=== PATIENT | male | born 1945 | race Caucasian/White ===

== ENCOUNTER 2017-10-12 10:28 | Inpatient (IN) | payer OTHER ==
[~2017-10-12] VITALS: Ht 172.7 cm; Wt 84.5 kg
[2017-10-12] VITALS (19 sets, daily range): BP systolic 93–158; BP diastolic 34–57; PULSE 53–81; TEMP 36.4–36.8; O2SAT 96–100; BMI 29.4
[2017-10-12] MEDS ORDERED: SODIUM CHLORIDE 0.9% 250ML 250 ML IV STA (10:54)
[2017-10-12] MEDS ORDERED: PHYTONADIONE INJ 2.5 MG in SODIUM CHLORIDE 0.9% 50ML 50 ML IV STA (10:57)
--- NOTE | 2017-10-12 10:59 | EMERGENCY ROOM VISIT NOTE ---
History Report prepared by Carol: Sheron Estrella Under the Supervision of: Dr. Samira Giron M.D. First contact with patient: 10:43 Chief Complaint: OTHER COMPLAINT Stated Complaint: LOW HGB History of Present Illness The patient is a 72 year old male who presents to the Emergency Room with complaints of low hemoglobin today. The patient was sent from [facility]. He states that he had a blood transfusion and that he is on Coumadin. Per nursing staff, the patient has a mechanical heart valve. The patient denies having diarrhea and reports that he is not having bowel movements. The patient reports that he is on dialysis and that he is diabetic. He also reports having a history of an irregular heartbeat. The patient's INR was 4.12. Source of History: patient, nursing staff Onset: today Position: other (global) Quality: other (low hemoglobin ) Timing: constant Associated Symptoms: No diarrhea Review of Systems See HPI for pertinent positives & negatives. A total of 10 systems reviewed and were otherwise negative. Past Medical & Surgical Medical Problems: (1) Carotid arterial disease (2) Cirrhosis of liver (3) CKD (chronic kidney disease), stage V (4) Coronary artery disease (5) Diabetes mellitus, type 2 (6) Diastolic CHF, chronic (7) Dyslipidemia (8) Hypertension (9) Hypothyroidism (10) Systolic CHF, chronic Surgical Problems: (1) History of mitral valve replacement with mechanical valve (2) Status post carotid endarterectomy (3) Status post coronary artery bypass grafting (4) Status post mechanical aortic valve replacement Family History No pertinent family history stated. Social History Smoking Status: Former Smoker Housing Status: lives with family Occupation Status: retired Current/Historical Medications Scheduled Aspirin (Aspirin Ec), 81 MG PO DAILY Atorvastatin (Lipitor), 40 MG PO DAILY Coenzyme Q10 (Ubidecarenone) (Co Q 10), 1 CAP PO DAILY Insulin Aspart (Novolog), 1 UNITS SC ACHS Insulin Glargine (Lantus), 10 UNITS SC QAM Insulin Glargine (Lantus), 12 UNITS SC QPM Levothyroxine Sodium (Levothyroxine Sodium), 1 TAB PO DAILYBB Metoprolol Succ (Toprol Xl) (Toprol-Xl), 25 MG PO DAILY Multiple Vitamins W/ Minerals (Mens 50+ Multi Vitamin &), 1 TAB PO DAILY Nitroglycerin (Nitrostat), 0.4 MG UT PRN Warfarin Sodium (Coumadin), 5 MG PO UD Wheat Dextrin (Benefiber), 1 DOSE PO DAILY Scheduled PRN Acetaminophen Tab (Tylenol), 325 MG PO Q6 PRN for Pain Docusate Sodium (Colace), 1 CAP PO BID PRN for Constipation Allergies Coded Allergies: No Known Allergies (Unverified , 10/12/17) Physical Exam Vital Signs Date Time Temp Pulse Resp B/P (MAP) Pulse Ox O2 Delivery O2 Flow Rate FiO2 10/12/17 13:55 36.8 77 16 93/35 96 10/12/17 13:31 36.7 71 16 110/52 98 10/12/17 13:20 98 Nasal Cannula 2.0 10/12/17 13:17 69 10/12/17 13:16 36.5 81 16 100/40 98 10/12/17 11:59 71 16 120/46 98 Room Air 10/12/17 11:25 74 16 101/41 98 Room Air 10/12/17 10:45 70 10/12/17 10:39 36.8 70 25 104/45 97 Physical Exam Vital signs reviewed. General: Chronically ill-appearing male, pale, in no significant distress. Dialysis catheter to the right subclavicular region. HEENT: No scleral icterus, pale conjunctiva, PERRLA, neck supple. Atraumatic. Cardiovascular: Regular rate and rhythm, no extra sounds. Pulmonary: Clear to auscultation bilaterally, normal work of breathing. Abdomen: Soft, nontender, nondistended, positive bowel sounds. Musculoskeletal: Atraumatic, no peripheral edema. Neurologic: Patient awake alert and oriented x 3, full strength in all 4 extremities. Cranial nerves 2 through 12 grossly intact. Skin: Warm, dry, no rash Rectal: Dark brown stool formed. Guaiac positive. Medical Decision & Procedures ER Provider Diagnostic Interpretation: Radiology results as stated below per my review and radiologist interpretation: CHEST ONE VIEW PORTABLE CLINICAL HISTORY: weakness dyspnea COMPARISON STUDY: No previous studies for comparison. FINDINGS: Mild cardiomegaly. Central catheter in the superior Vena cava at the juncture with the right atrium. Probable components of lower lobe atelectasis of the left. Right lung is clear. Mild prominence of pulmonary vasculature. IMPRESSION: Moderate cardiomegaly. Atelectasis left base. Prominent pulmonary vasculature. The above report was generated using voice recognition software. It may contain grammatical, syntax or spelling errors. Electronically signed by: Rex Eckert M.D. 10/12/2017 11:19 AM Dictated Date/Time: 10/12/2017 11:18 AM HEAD WITHOUT CONTRAST (CT) CLINICAL HISTORY: 72 years-old Male with AMS, weakness. Acutely altered mental status with weakness TECHNIQUE: Multiple axial CT images of the head were obtained without contrast. A dose lowering technique was utilized adhering to the principles of ALARA. CT DOSE: 614.27 mGy.cm COMPARISON: None. FINDINGS: No acute intracranial hemorrhage, midline shift, intracranial mass, hydrocephalus, territorial ischemia or abnormal extra-axial collection. Mild to moderate atrophy. Punctate calcifications are noted within the region of the right temporal and left frontal lobes seen on images 21 and 24. Ill-defined areas of low-attenuation within the periventricular white matter suggest chronic microvascular ischemic changes. Calcifications of the tentorium are noted. Encephalomalacia is noted within the left parieto-occipital lobe. The calvarium is intact. The paranasal sinuses, mastoid air cells, and middle ear cavities are clear. IMPRESSION: 1. No acute intracranial abnormality identified. 2. Mild to moderate atrophy with mild chronic microvascular ischemic changes. 3. 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 The above report was generated using voice recognition software. It may contain grammatical, syntax or spelling errors. Electronically signed by: Enrique Carrillo M.D. 10/12/2017 11:54 AM Dictated Date/Time: 10/12/2017 11:48 AM Laboratory Results Test 10/12/17 10:58 10/12/17 11:04 Acanthocytes 1+ Peripheral Blood Smear Path Consult Total Creatine Kinase 44 U/L (39-308) Creatine Kinase MB 2.6 ng/ml (0.5-3.6) Creatine Kinase MB Ratio 5.9 (0-3.0) Bedside Troponin I 0.030 ng/ml (0-0.045) Laboratory results per my review. Medications Administered Medications (Trade) Dose Ordered Sig/Britton Route Start Time Stop Time Status Last Admin Dose Admin Sodium Chloride 250 ml @ 999 mls/hr Q16M STAT IV 10/12/17 10:54 10/12/17 11:09 DC 10/12/17 11:25 999 MLS/HR Phytonadione 2.5 mg/Sodium Chloride 50.25 ml @ 100.5 mls/ hr ONE STAT IV 10/12/17 10:57 10/12/17 11:26 DC 10/12/17 11:57 100.5 MLS/HR ECG Indication: weakness Rate (beats per minute): 68 Rhythm: atrial fibrillation Findings: no ectopy, other (repolarization abnormalities ) ED Course 1053: Past medical records reviewed. The patient was evaluated in room B10. A complete history and physical examination was performed. 1054: Ordered Sodium Chloride 250 ml @ 999 mls/hr IV. 1057: Ordered Phytonadione 2.5 mg/Sodium Chloride 50.25 ml @ 100.5 mls/hr Protocol IV. 1220: The patient consented for a transfusion. 1246: I reviewed the patient's case with Emely Scales PA-C. She will evaluate the patient for further management. 1250: Upon reevaluation, the patient is resting comfortably. I discussed laboratory and radiographic results with him. He verbalized agreement of the treatment plan. The patient will be evaluated for further management and care. Medical Decision Differential diagnosis: Etiologies such as diverticulosis, AVM, coagulopathy, colitis, inflammatory bowel disease, malignancy, Maile-Douglas tear, esophagitis, peptic ulcer disease , variceal bleed, gastritis, epistaxis, fissure, hemorrhoids, as well as others were entertained. This pt was evaluated and appeared to be critically ill, but in no distress. He is answering questions appropriately. Lab work indicates a severe anemia. BP is slightly hypotensive. Pt was type and crossed for 4 units PRBC. Lab work from [facility] was obtained and reveals this is a drop from several days ago. Pt is on dialysis. PRBC were initiated in the ED, pt consented. He is guaiac positive with formed stool. The etiology of the sudden loss is unclear, although GI seems likely. He was given IV Vit K and consultation with hospitalist service was placed. Pt was happy with this plan and agrees. Medication Reconcilliation Current Medication List: was personally reviewed by oh Blood Pressure Screening Patient's blood pressure: Low blood pressure will be monitored by the hospitalist Consults Time Called: 1200 Consulting Physician: Emely Scales PA-C Returned Call: [phone] I reviewed the patient's case with Emely Scales PA-C. She will evaluate the patient for further management. Impression Primary Impression: GI bleed Additional Impressions: Anemia Supratherapeutic INR Critical Care I have personally spent greater than 60 minutes of critical care time in the direct management of this patient. This includes bedside care, interpretation of diagnostic studies, and testing, discussion with consultants, patient, and family members, and other required patient management activities. This 60 minutes is in excess of all separately billable procedures. Scribe Attestation The scribe's documentation has been prepared under my direction and personally reviewed by me in its entirety. I confirm that the note above accurately reflects all work, treatment, procedures, and medical decision making performed by me. Departure Information Dispostion Being Evaluated By Hospitalist Referrals No Doctor, Assigned (PCP) Patient Instructions My [facility] Problem Qualifiers
--- NOTE | 2017-10-12 11:21 | DIAGNOSTIC IMAGING REPORT ---
CHEST ONE VIEW PORTABLE CLINICAL HISTORY: weakness dyspnea COMPARISON STUDY: No previous studies for comparison. FINDINGS: Mild cardiomegaly. Central catheter in the superior Vena cava at the juncture with the right atrium. Probable components of lower lobe atelectasis of the left. Right lung is clear. Mild prominence of pulmonary vasculature. IMPRESSION: Moderate cardiomegaly. Atelectasis left base. Prominent pulmonary vasculature. The above report was generated using voice recognition software. It may contain grammatical, syntax or spelling errors. Electronically signed by: Rex Eckert M.D. 10/12/2017 11:19 AM Dictated Date/Time: 10/12/2017 11:18 AM
[2017-10-12 11:29] LABS: PTT PATIENT 41.5 SECONDS (21.0-31.0)
[2017-10-12 11:32] LABS: HEMATOCRIT 16.5 % (42-52); HEMOGLOBIN 5.3 g/dL (14.0-18.0); MEAN CELL VOLUME 92.7 fL (80-100); MEAN CORPUSCULAR HEMOGLOBIN 29.8 pg (25-34); MEAN CORPUSCULAR HGB CONC 32.1 g/dl (32-36); MEAN PLATELET VOLUME 9.8 fL (7.4-10.4); NUCLEATED RED BLOOD CELL ABS 0.19 K/uL (0-0); PLATELET COUNT 174 K/uL (130-400); RED CELL DISTRIBUTION WIDTH SD 65.7 fL (36.4-46.3); WHITE BLOOD COUNT 9.45 K/uL (4.8-10.8)
[2017-10-12 11:39] LABS: ALBUMIN 1.8 gm/dl (3.4-5.0); CALCIUM 7.3 mg/dl (8.5-10.1); CREATININE 4.39 mg/dl (0.60-1.40); POTASSIUM 4.7 mmol/L (3.5-5.1)
[2017-10-12 11:40] LABS: INR 3.9 (0.9-1.1)
[2017-10-12 11:44] LABS: CKMB 2.6 ng/ml (0.5-3.6)
[2017-10-12 11:52] LABS: BASO % 1.4 %; BASO ABS # 0.13 K/uL (0-0.2); EOS % 2.5 %; EOS ABS # 0.24 K/uL (0-0.5); IG# 0.14 K/uL (0.00-0.02); LYMPH % 17.1 %; LYMPH ABS # 1.62 K/uL (1.2-3.4); MONO % 8.5 %; NEUT ABS # 6.52 K/uL (1.4-6.5)
--- NOTE | 2017-10-12 11:55 | DIAGNOSTIC IMAGING REPORT ---
HEAD WITHOUT CONTRAST (CT) CLINICAL HISTORY: 72 years-old Male with AMS, weakness. Acutely altered mental status with weakness TECHNIQUE: Multiple axial CT images of the head were obtained without contrast. A dose lowering technique was utilized adhering to the principles of ALARA. CT DOSE: 614.27 mGy.cm COMPARISON: None. FINDINGS: No acute intracranial hemorrhage, midline shift, intracranial mass, hydrocephalus, territorial ischemia or abnormal extra-axial collection. Mild to moderate atrophy. Punctate calcifications are noted within the region of the right temporal and left frontal lobes seen on images 21 and 24. Ill-defined areas of low-attenuation within the periventricular white matter suggest chronic microvascular ischemic changes. Calcifications of the tentorium are noted. Encephalomalacia is noted within the left parieto-occipital lobe. The calvarium is intact. The paranasal sinuses, mastoid air cells, and middle ear cavities are clear. IMPRESSION: 1. No acute intracranial abnormality identified. 2. Mild to moderate atrophy with mild chronic microvascular ischemic changes. 3. 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 The above report was generated using voice recognition software. It may contain grammatical, syntax or spelling errors. Electronically signed by: Enrique Carrillo M.D. 10/12/2017 11:54 AM Dictated Date/Time: 10/12/2017 11:48 AM
[2017-10-12] MEDS ORDERED: METO25TA3 PO (13:00)
[2017-10-12] MEDS ORDERED: NVLG SC (13:00)
[2017-10-12] MEDS ORDERED: COEN1CAP17 PO (13:00)
[2017-10-12] MEDS ORDERED: MULT-599 PO (13:00)
[2017-10-12] MEDS ORDERED: NTRGSL/4 UT (13:00)
[2017-10-12] MEDS ORDERED: WARF5TAB90 PO (13:00)
[2017-10-12] MEDS ORDERED: ACET325T96 PO (13:00)
[2017-10-12] MEDS ORDERED: ATOR-24 PO (13:00)
[2017-10-12] MEDS ORDERED: LEVO75TA5 PO (13:00)
[2017-10-12] MEDS ORDERED: DOCU-94 PO (13:00)
[2017-10-12] MEDS ORDERED: ASPI81TA28 PO (13:00)
[2017-10-12] MEDS ORDERED: WHEAPOW13 PO (13:02)
[2017-10-12] MEDS ORDERED: INSDGI SC ×2 (13:02)
[2017-10-12] MEDS ORDERED: DOCUSATE SODIUM 100 MG CAP PO PRN (14:00)
[2017-10-12] MEDS ORDERED: MoRPHine SULFATE 2 MG/ML CARP IV PRN (14:00)
[2017-10-12] MEDS ORDERED: ICU PROTOCOL FOR HYPERGLYCEMIA PRN (14:00)
[2017-10-12] MEDS ORDERED: NITROGLYCERIN 0.4 MG SL PER TAB CHARGE SL PRN (14:00)
[2017-10-12] MEDS ORDERED: ACETAMINOPHEN 325 MG TAB PO PRN (14:00)
[2017-10-12] MEDS ORDERED: NITROGLYCERIN 0.4 MG SL PER TAB CHARGE UT SCH (14:00)
--- NOTE | 2017-10-12 14:08 | Gastrointestinal Consultation ---
Gastrointestinal Consultation Date of Consultation: Oct 12, 2017 Attending Physician: Didi Consulting Physician: Aliza Reason for Consultation: anemia History of Present Illness Patient is a 72 year old male w/ past medical history significant for T2DM, HTN , CKD, AFIB, cirrhosis, CAD s/p CABG and mechanical valve placements who presented to the [facility] ED from [facility] for evaluation of weakness, SOB and anemia. Pt was seen and evaluated in B10 in the ER w/ Dr. Abrams. Charts reviewed. Of note, pt was admitted [facility] in September 17-September 28, transferred to [facility] and was discharged yesterday 10/11/17. Pt tells me at [facility] he continued to feel weak. He is SOB. No chest pain. He tells me has not had any black/bloody stools. Last BM was a few days ago. In the ED, VSS, WBC 9 HGB 5.3, HCT 16, PLTs 174, PT 39, INR 3.9 EGD: none Colonoscopy: none Family history of GI malignancy: none RUQ US 09/29/17: Cirrhotic morphology of the liver without gross mass identified. Moderate ascites with a site marked in the left lower quadrant for paracentesis. Right pleural effusion. Past Medical/Surgical History Medical Problems: (1) Anemia Status: Acute (2) GI bleed Status: Acute (3) Supratherapeutic INR Status: Acute Past Medical History: T2DM, dyslipidemia, hypothyroidism, afib, AVD, renal artery stenosis, CKD, CHF, anemia, mitral valve replacement, SSS, Past Surgical History: CABG w/ aortic valve replacement, ascending aorta bypass, ECHO x 5, stress ECHO , mitral valve replacement Social History Smoking Status: Never Smoker Allergies Coded Allergies: No Known Allergies (Unverified , 10/12/17) Current Medications Home Meds and Scripts Medications Dose Route/Sig Max Daily Dose Days Date Category Dose Instructions Benefiber (Wheat Dextrin) 1 Pow Pow 1 Dose PO DAILY 10/12/17 Reported Lantus (Insulin Glargine) 100 Unit/Ml Inj 12 Units SC QPM 10/12/17 Reported Lantus (Insulin Glargine) 100 Unit/Ml Inj 10 Units SC QAM 10/12/17 Reported Coumadin (Warfarin Sodium) 5 Mg Tab 5 Mg PO UD 10/12/17 Reported Tylenol (Acetaminophen) 325 Mg Tab 325 Mg PO Q6 PRN 10/12/17 Reported Nitrostat (Nitroglycerin) 0.4 Mg Tab 0.4 Mg UT PRN 10/12/17 Reported Toprol-Xl (Metoprolol Succinate) 25 Mg Tabcr 25 Mg PO DAILY 10/12/17 Reported Mens 50+ Multi Vitamin & (Multiple Vitamins W/ Minerals) 1 Tab Tab 1 Tab PO DAILY 10/12/17 Reported Levothyroxine Sodium 75 Mcg Tab 1 Tab PO DAILYBB 10/12/17 Reported Lipitor (Atorvastatin Calcium) 40 Mg Tab 40 Mg PO DAILY 10/12/17 Reported Aspirin Ec (Aspirin) 81 Mg Tab 81 Mg PO DAILY 10/12/17 Reported Colace (Docusate Sodium) 100 Mg Cap 1 Cap PO BID PRN 10/12/17 Reported Co Q 10 (Coenzyme Q10 (Ubidecarenone)) 100 Mg Cap 1 Cap PO DAILY 10/12/17 Reported TAKE WITH LIPITOR Novolog (Insulin Aspart) 100 Units/Ml Inj 1 Units SC ACHS 10/12/17 Reported Review of Systems Constitutional: + weight loss (tells me he has lost weight over the course of his last admission), + weakness, No fever, No chills Respiratory: + shortness of breath, No cough Cardiac: No chest pain, No edema Abdomen: + nausea, No pain, No vomiting, No diarrhea Endo: + fatigue Physical Exam Date Time Temp Pulse Resp B/P (MAP) Pulse Ox O2 Delivery O2 Flow Rate FiO2 10/12/17 13:55 36.8 77 16 93/35 96 10/12/17 13:31 36.7 71 16 110/52 98 10/12/17 13:20 98 Nasal Cannula 2.0 10/12/17 13:17 69 10/12/17 13:16 36.5 81 16 100/40 98 10/12/17 11:59 71 16 120/46 98 Room Air 10/12/17 11:25 74 16 101/41 98 Room Air 10/12/17 10:45 70 10/12/17 10:39 36.8 70 25 104/45 97 General Appearance: + mild distress, + pertinent finding (appears uncomfortable in bed, blood produtc) Neck: supple, trachea midline Respiratory/Chest: lungs clear, normal breath sounds Cardiovascular: regular rate, rhythm Abdomen: normal bowel sounds, non tender, soft, no organomegaly, + pertinent finding (Rectal exam w/ dark brown stool) Neurologic/Psych: alert, normal mood/affect, oriented x 3 Skin: no jaundice, warm/dry, + pallor Laboratory Results Last 24 Hours Test 10/12/17 10:58 10/12/17 11:04 White Blood Count 9.45 K/uL Red Blood Count 1.78 M/uL Hemoglobin 5.3 g/dL Hematocrit 16.5 % Mean Corpuscular Volume 92.7 fL Mean Corpuscular Hemoglobin 29.8 pg Mean Corpuscular Hemoglobin Concent 32.1 g/dl Platelet Count 174 K/uL Mean Platelet Volume 9.8 fL Neutrophils (%) (Auto) 69.0 % Lymphocytes (%) (Auto) 17.1 % Monocytes (%) (Auto) 8.5 % Eosinophils (%) (Auto) 2.5 % Basophils (%) (Auto) 1.4 % Neutrophils # (Auto) 6.52 K/uL Lymphocytes # (Auto) 1.62 K/uL Monocytes # (Auto) 0.80 K/uL Eosinophils # (Auto) 0.24 K/uL Basophils # (Auto) 0.13 K/uL RDW Standard Deviation 65.7 fL RDW Coefficient of Variation 22.0 % Immature Granulocyte % (Auto) 1.5 % Immature Granulocyte # (Auto) 0.14 K/uL Nucleated RBC Absolute Count (auto) 0.19 K/uL Nucleated Red Blood Cells % 2.1 % Polychromasia 1+ Hypochromasia PRESENT Anisocytosis PRESENT Acanthocytes 1+ Prothrombin Time 39.4 SECONDS Prothromb Time International Ratio 3.9 Activated Partial Thromboplast Time 41.5 SECONDS Partial Thromboplastin Ratio 1.6 Sodium Level 134 mmol/L Potassium Level 4.7 mmol/L Chloride Level 99 mmol/L Carbon Dioxide Level 24 mmol/L Anion Gap 11.0 mmol/L Blood Urea Nitrogen 86 mg/dl Creatinine 4.39 mg/dl Est Creatinine Clear Calc Drug Dose 16.4 ml/min Estimated GFR () 14.5 Estimated GFR (Non- 12.5 BUN/Creatinine Ratio 19.6 Random Glucose 164 mg/dl Calcium Level 7.3 mg/dl Magnesium Level 2.3 mg/dl Total Bilirubin 0.7 mg/dl Direct Bilirubin 0.2 mg/dl Aspartate Amino Transf (AST/SGOT) 42 U/L Alanine Aminotransferase (ALT/SGPT) 16 U/L Alkaline Phosphatase 117 U/L Total Creatine Kinase 44 U/L Creatine Kinase MB 2.6 ng/ml Creatine Kinase MB Ratio 5.9 Total Protein 5.0 gm/dl Albumin 1.8 gm/dl Bedside Troponin I 0.030 ng/ml Impression Patient is a 72 year old male w/ multiple comorbidities who is admitted one day following discharge from [facility] from [facility] for evaluation of weakness and anemia - pt was seen and evaluated. Has history of anemia, recently transfused x 2 w/ HGB 7.8, today HGB 5.3 w/ INR 3. No evidence of acute GI bleeding. GI asked to evaluate for anemia and to rule out GIB as the pt is requiring anticoagulation and has never had an EGD/Colonoscopy before. He continues to be nauseated x months, will rule out constipation. GI would recommend to optimize pt comorbidities as he is high risk of endoscopic evaluation and plan for EGD/Colon early next week unless there is evidence of acute GI blood loss. Plan Trend H&H Transfuse PRN Monitor output IV PPI BID KUB for stool burden Zofran PRN Hold AC Can keep NPO after midnight in event of EGD in the morning but GI is tentatively planning for EGD/Colon early next week in the OR after optimization comorbidities. Please call with any questions, concerns or acute changes. Attg addendum (late entry from yesterday): I interviewed and examined pt, reviewed chart and labs. Pt with mult medical comorbidities including AVR on anti coag, ESRD with recent initation of dialysis, s/p recent hosp in [place] for volume overload. He was noted to have anemia with dorcas Hgb of 5.5 on 10/10 , managed in [place] by transfusion. He was admitted today with anemia, weakness. On exam, he is normotensive with normal heart rate. He has marked incr WOB. He has mild abd distention and mild dullness to percussion at flanks. His rectal exam shows scant brown stool. He has no pedal edema. His hgb is 5.5, from 7.8 yesterday. His BUN is in the 80's. INR is in the 4's. Of note, CT in [place] on 09/17 showed "small prob cirrhotic liver without splenomegaly." His plt count and bili are normal, although AST appears 2 x ALT. A/P: He has had a drop in his hgb and rise in BUN, although his rectal exam shows brown stool. DDX includes PUD, gastritis, AVM, portal gastropathy. He is at high risk for anesthesia given uremia and resp insufficiency; would prefer to defer EGD and cscopy until he can be medically optimized by transfusion/ dialysis. Plan BID PPI. He has CT imaging that suggests cirrhosis, but does not have clinical/lab/ imaging stigmata of portal HTN -- portal HTN bleeding seems less likely. Will defer abx, octreotide. Agree with holding anti-coag tonight.
[2017-10-12] MEDS ORDERED: PANTOprazole INJ 80 MG in DEXTROSE 5% 100ML IV ONE (15:45)
[2017-10-12] MEDS ORDERED: INSULIN ASPART 100 UNITS/ML 3 ML PEN SC SCH (16:00)
[2017-10-12] MEDS ORDERED: ONDANSETRON INJ 2 MG/ML 2 ML VIAL IV STA (16:09)
[2017-10-12 16:17] LABS: HEMATOCRIT 20.2 % (42-52); HEMOGLOBIN 6.7 g/dL (14.0-18.0)
[2017-10-12] MEDS: PANTOprazole INJ 40 MG in DEXTROSE 5% 100ML IV SCH ×2 (16:21→20:35)
--- NOTE | 2017-10-12 16:49 | HISTORY & PHYSICAL EXAMINATION ---
DATE OF ADMISSION: 10/12/2017 CHIEF COMPLAINT: Anemia. HISTORY OF PRESENT ILLNESS: This is a 72-year-old male with past medical history significant for diabetes, hypertension, atrial fibrillation, chronic kidney disease stage IV, recently started on dialysis; history of rheumatic heart disease, status post mechanical aortic valve replacement and mechanical mitral valve replacement, on Coumadin; history of bilateral carotid disease, history of chronic diastolic congestive heart failure and systolic CHF, EF around 50%; history of CAD, history of anasarca, presents with not feeling well, dizziness and labs showed hemoglobin of 5.3. The patient was recently admitted to [facility] on September 17 with a fall and leg weakness and patient was found to have significant volume overload with anasarca and bilateral lower extremity edema and cellulitis and wound on both the back of the legs below knees and worsening chronic kidney disease stage IV . The patient was started on IV diuretics, IV vancomycin and Zosyn in [facility]. There was a concern for fibular osteomyelitis on x-ray, but CT scan was unremarkable. As the patient did not respond well to IV diuretics, he was started on dialysis at [facility] on September 22. The volume load somewhat improved, but his leg weakness did not improved and patient could not get MRI because of mechanical heart valves and the patient was transferred to [facility] tertiary care for further evaluation. The patient was seen by neurology at [place] and thought his leg weakness from mild distal neuropathy, probably secondary to diabetes and renal failure, but mainly his weakness was attributed to his deconditioning. Rehab placement was recommended and if still no improvement advised to followup as outpatient for further imaging and electrophysiological workup. Also in [place] his his hemoglobin was low. He was also got 1 unit of blood transfusion in [facility] 3units at [place]. His hemoglobin was in the 7's at one point was 5.5 .There was no obvious source of bleeding and was advised to get a colonoscopy as an outpatient and patient was discharged to [facility] as he was doing okay yesterday, but today morning, the routine labs in [facility] showed his hemoglobin was 5.3 and patient looked pale and was dizzy, weak and tired and he was transferred here as his hemoglobin dropped 2 units in 1 day. He was transferred here for further evaluation. The patient is somewhat lethargic but alert and oriented and states he is feeling weak and has poor appetite and dizzy. He says his last bowel movement was yesterday and denies any bloody vomiting or blood in the stools. Denies any chest pain or shortness of breath, denies any cough. No headaches. No sore throat, no cough, no runny nose, no sore throat, no difficulty swallowing. He was somewhat nauseous but no vomiting, no abdominal discomfort. He thinks his lower extremity edema has improved, but he did not look down to look at his lower extremities. He complains of some pressure ulcer in his back.But currently seems comfortable and hemodynamically stable. ALLERGIES: No known drug allergies. PAST MEDICAL HISTORY: As mentioned above. PAST SURGICAL HISTORY: The patient has mechanical aortic valve replacement and mitral valve replacement, ascending aortic aneurysm graft, left heart catheterization, coronary artery bypass, insertion of tunneled catheter, left ankle surgery done, cataract surgeries, left and right carotid endarterectomy. MEDICATIONS: The patient is on insulin NovoLog 1 unit 4 times a day before meals and at bedtime, levothyroxine 75 mcg p.o. daily, metoprolol succinate 25 mg p.o. daily, Lipitor 40 mg p.o. daily, Tylenol 325 mg p.o. q. 6 hours p.r.n. pain, Coumadin 5 mg as directed. Nitroglycerin 0.4 mg p.r.n., Lantus 10 units in the morning and 12 units in the evening, Coenzyme Q10 take with Lipitor.Multi vitamins 1 tablet daily, Colace 100 mg p.o. b.i.d. p.r.n., aspirin 81 mg p.o. daily. FAMILY HISTORY: Significant for father has diabetes, mother has depression, sister has diabetes and carotid stenosis s/p repair and also valve replacement and pacemaker. SOCIAL HISTORY: Former smoker, quit in 1968, smoked 2 packs a day for 8 years. No alcohol use. No drug use. The patient is , currently. The patient was brought in from [facility]. REVIEW OF SYMPTOMS: As per HPI. Rest of review of systems negative. PHYSICAL EXAMINATION: GENERAL: The patient is somewhat lethargic but alert and oriented. VITAL SIGNS: Temperature 36.8, pulse 77, respiratory rate 16, blood pressure 93/55, oxygen 96% on 2 liters. HEENT: Pale at present. No icterus. Pupils equal, round, and reactive to light. NECK: No JVD, no neck masses, no carotid bruits seen. CARDIOVASCULAR: S1, S2 heard. Regular rate and rhythm. Mechanical sound heard in mitral and aortic area. A tunneled catheter is seen on the right side of the chest. RESPIRATORY SYSTEM: Normal AP diameter. No accessory muscle use. No wheezing, no crackles. ABDOMEN: Soft, bowel sounds present. Mild distention, no guarding, no rigidity. CENTRAL NERVOUS SYSTEM: Somewhat lethargic but oriented x3. Moves his extremities. Nonfocal extremities. Bilateral lower extremity pedal edema, +1 present. No edema. SKIN: Stage I pressure ulcer seen on the sacral region and also on the posterior aspect of his bilateral lower extremities above ankles seen. LABORATORIES: Sodium 134, potassium 4.7, chloride 99, CO2 24, BUN 86, creatinine 4.3, serum glucose 164, calcium 7.3, magnesium 2.3. Total bilirubin 0.7, direct bilirubin 0.2, AST 42, ALT 16, alkaline phosphatase 117, albumin 1.8. Point of care troponin 0.03. WBC 9.4, hemoglobin 5.3, hematocrit 16.5, platelets 174. PT 39.4, INR 3.9, APTT 41.5. IMAGING DATA: Chest x-ray, moderate cardiomegaly; atelectasis, left base. CT of the head, no acute intracranial abnormality identified. EKG shows atrial fibrillation with a rate of 68, no acute ST changes seen. ASSESSMENT AND PLAN: This is a 72-year-old male who presents with profound anemia. 1. Profound anemia, hemoglobin of 5.3. No obvious source of bleeding. The patient is on Coumadin for aortic valve replacement, mitral valve replacement and atrial fibrillation. INR was 3.9. The patient was given 1 dose of intravenous vitamin 2.5 mg. Plan to give 2 units of packed red blood cells, now we will check the stool for Hemoccult. Will empirically place him on Protonix drip. The patient was in [facility] recently, admitted on September 17 and was transferred to [facility] in first week of September. Since then, he received a total of 4 units of packed red blood cells, 1 unit in [place] and 3 units in [place], .No obvious source and outpatient colonoscopy was recommended. Supposed to started on Epoetin by nephrology. Given 2 units of packed red blood cells now and follow H&H q. 6 hours. GI consulted and notified. Close monitoring in the intensive care unit.NPO except meds for now. 2. Generalized anasarca. As per the [facility] notes, his symptoms improved after dialysis.At [place] also, he was status post paracentesis with 5 liters of ascitic fluid drained and no spontaneous bacterial peritonitis seen and it was thought most likely from renal origin, but his abdominal imaging was also consistent with cirrhosis. We will do the abdominal ultrasound to see if there is any accumulation of ascites again. The patient is on dialysis for end-stage renal disease. 3. End-stage renal disease. The patient is status post Tunnel catheter at [facility] which was pulled out once by martha and it was replaced. The patient is supposed to get dialysis today, discussed with nephrology and planning for dialysis tomorrow. Close monitoring in the intensive care unit. 4. History of rheumatic heart disease, status post aortic valve replacement and mitral valve replacement , mechanical The patient is on Coumadin. INR is 3.9. Because of anemia, INR was reversed, to restart Coumadin as soon as feasible. 5. Atrial fibrillation, on metoprolol succinate, which will continue with holding parameters. Coumadin held as above. 6. History of diastolic congestive heart failure and systolic congestive heart failure with ejection fraction of 50% on echocardiogram done in 09/19/2017. Volume status managed by dialysis. 7. Diabetes. We will cut back on the Lantus to 5 units b.i.d. as martha is npo now and place on insulin sliding scale. Follow HbA1c levels. Monitor blood sugars closely. 8. History of hypertension. Metoprolol with holding parameters. 9. History of hyperlipidemia. Continue statin. 10. History of coronary artery disease and status post coronary artery bypass grafting. Holding the aspirin for anemia, continue Toprol-XL, atorvastatin. 11. History of hypothyroidism. Continue Synthroid. 12. Questionable osteomyelitis of right fibula at [facility], but CAT scan was okay and antibiotics was stopped by ID at [place]. 13. Deep venous thrombosis prophylaxis, sequential compression devices for now. DISPOSITION: Close monitor in the intensive care unit. Level 1 full code as per discussion with the [facility]. Total critical care time 60 minutes. RICHIE
--- NOTE | 2017-10-12 17:04 | Critical Care Consultation ---
Critical Care Consultation Date of Consultation: Oct 12, 2017. Attending Physician: Vaibhav Figueroa M.D. Reason for Consultation: Anemia, Dyspnea, Weakness History of Present Illness Mr. Wilder is a 72 yo male admitted from [facility] for sudden drop in hemoglobin over the past 2 days, weakness, and dyspnea. He has a significant PMH for T2DM, HTN, CKD stage IV, Afib on coumadin, rheumatoid heart disease, bilateral carotid disease, diastolic CHF with EF of 50%, Cirrhosis, CAD s/p CABG and mechanical valve placement. He is a poor historian. Per ER records, patient had been in [facility] Sep 17-Sep 28 for mechanical fall, leg weakness, edema, and cellulitic lesions on his legs. His kidney function declined, and he required dialysis on September 22 at [facility]. He was trasferred to [facility] and was discharged yesterday, 10/11/17. He spent the night at [facility], continued to feel weak today, and was found to have a hemoglobin of 5.3 with an INR of 4.2. He was given 2.5 Vit K IV in the ED and most recent INR was 3.9. After 1 unit of blood, his hemoglobin improved to 6.5. He is currently transfusing his 2nd unit. He continues to complain of lightheadedness and nausea, stating he feels the room is spinning. He states this worsens with changing position. He also complains of shortness of breath. He denies chest pain, abdominal pain, vomiting , epistaxis, or recent bowel movement. He does have sores on his right buttocks , right heel, and right calf. Past Medical/Surgical History T2DM, HLD, HTN, Hypothyroidism, Afib, Renal artery stenosis, CKD, CHF, anemia, mitral valve replacement, sick sinus syndrome, CABG s/p aortic valve replacement Social History Smoking Status: Never Smoker Housing Status: lives alone Allergies Coded Allergies: No Known Allergies (Unverified , 10/12/17) Home Medications Scheduled Aspirin (Aspirin Ec), 81 MG PO DAILY Atorvastatin (Lipitor), 40 MG PO DAILY Coenzyme Q10 (Ubidecarenone) (Co Q 10), 1 CAP PO DAILY Insulin Aspart (Novolog), 1 UNITS SC ACHS Insulin Glargine (Lantus), 10 UNITS SC QAM Insulin Glargine (Lantus), 12 UNITS SC QPM Levothyroxine Sodium (Levothyroxine Sodium), 1 TAB PO DAILYBB Metoprolol Succ (Toprol Xl) (Toprol-Xl), 25 MG PO DAILY Multiple Vitamins W/ Minerals (Mens 50+ Multi Vitamin &), 1 TAB PO DAILY Nitroglycerin (Nitrostat), 0.4 MG UT PRN Warfarin Sodium (Coumadin), 5 MG PO UD Wheat Dextrin (Benefiber), 1 DOSE PO DAILY Scheduled PRN Acetaminophen Tab (Tylenol), 325 MG PO Q6 PRN for Pain Docusate Sodium (Colace), 1 CAP PO BID PRN for Constipation Current Inpatient Medications Current Inpatient Medications Medications (Trade) Dose Ordered Sig/Britton Route Start Time Stop Time Status Last Admin Dose Admin Acetaminophen (Tylenol Tab) 650 mg Q4H PRN PO 10/12/17 14:00 11/11/17 13:59 Nitroglycerin (Nitrostat Tab) 0.4 mg UD PRN SL 10/12/17 14:00 11/11/17 13:59 Morphine Sulfate (MoRPHine SULFATE INJ) 2 mg Q2H PRN IV 10/12/17 14:00 10/26/17 13:59 Miscellaneous Information (Icu Protocol For Hyperglycemia) 1 ea PRN PRN N/A 10/12/17 14:00 10/14/17 13:59 Atorvastatin Calcium (Lipitor Tab) 40 mg DAILY PO 10/13/17 09:00 11/12/17 08:59 Docusate Sodium (coLACE CAP) 100 mg BID PRN PO 10/12/17 14:00 11/11/17 13:59 Levothyroxine Sodium (Synthroid Tab) 75 mcg DAILYBB PO 10/13/17 06:00 11/12/17 06:59 Metoprolol Succinate (Toprol Xl Tab) 25 mg DAILY PO 10/13/17 09:00 11/12/17 08:59 Multivitamins/ Minerals (Multivitamin W/ Minerals Tab) 1 tab DAILY PO 10/13/17 09:00 11/12/17 08:59 Insulin Glargine (Lantus Solostar Pen) 5 units BID SC 10/12/17 21:00 11/11/17 20:59 Insulin Aspart (novoLOG ASPART) SLIDING SCALE G... Q6 SC 10/12/17 18:00 11/11/17 17:59 Pantoprazole Sodium 40 mg/ Dextrose 100 ml @ 20 mls/hr Q5H IV 10/12/17 16:00 11/11/17 15:59 Review of Systems Constitutional: + chills, + weight loss, + weakness, + fatigue, No fever, No sweats, No problem reported ENT: No hearing loss, No unusual epistaxis, No nasal symptoms, No sore throat, No tinnitus, No dental problems, No trouble swallowing, No problem reported Respiratory: + shortness of breath, No cough, No sputum, No wheezing, No dyspnea on exertion, No dyspnea at rest, No hemoptysis, No problem reported Cardiovascular: No chest pain, No orthopnea, No PND, No edema, No claudication , No palpitations, No problem reported Abdomen: + nausea, No pain, No vomiting, No diarrhea, No constipation, No GI bleeding, No problem reported Musculoskeletal: + problem reported (Sores on his buttocks and leg) Neurologic: + weakness, + vertigo, No memory loss, No paralysis, No numbness/ tingling, No balance problems, No problem reported Physical Exam Date Time Temp Pulse Resp B/P (MAP) Pulse Ox O2 Delivery O2 Flow Rate FiO2 10/12/17 14:32 36.8 67 16 129/39 99 10/12/17 14:10 73 16 110/62 97 Room Air 10/12/17 13:55 36.8 77 16 93/35 96 10/12/17 13:31 36.7 71 16 110/52 98 10/12/17 13:20 98 Nasal Cannula 2.0 10/12/17 13:17 69 10/12/17 13:16 36.5 81 16 100/40 98 10/12/17 11:59 71 16 120/46 98 Room Air 10/12/17 11:25 74 16 101/41 98 Room Air 10/12/17 10:45 70 10/12/17 10:39 36.8 70 25 104/45 97 General Appearance: WD/WN, uncomfortable, other (Pale) Head: normocephalic, atraumatic Eyes: PERRLA, EOMI, sclerae normal Neck: normal range of motion, no tenderness, trachea midline, no stridor, no lymphadenopathy, no nuchal rigidity Respiratory: accessory muscle use, chest wall tenderness, other (Decreased breath sounds in LLL) Cardiovasular: irregular rate, mechanical murmur Abdomen: non tender, normal bowel sounds, no rebound, no masses, no guarding Upper Extremities: other (Numerous scrapes and bruises) Lower Extremities: edema (2+ bilaterally) Edema: Bilateral LE (2+) Neuro: alert (oriented to self and hospital), normal sensation, normal speech, disoriented Laboratory Results Last 24 Hours Test 10/12/17 10:58 10/12/17 11:04 10/12/17 15:45 10/12/17 15:49 White Blood Count 9.45 K/uL Red Blood Count 1.78 M/uL Hemoglobin 5.3 g/dL Hematocrit 16.5 % Mean Corpuscular Volume 92.7 fL Mean Corpuscular Hemoglobin 29.8 pg Mean Corpuscular Hemoglobin Concent 32.1 g/dl Platelet Count 174 K/uL Mean Platelet Volume 9.8 fL Neutrophils (%) (Auto) 69.0 % Lymphocytes (%) (Auto) 17.1 % Monocytes (%) (Auto) 8.5 % Eosinophils (%) (Auto) 2.5 % Basophils (%) (Auto) 1.4 % Neutrophils # (Auto) 6.52 K/uL Lymphocytes # (Auto) 1.62 K/uL Monocytes # (Auto) 0.80 K/uL Eosinophils # (Auto) 0.24 K/uL Basophils # (Auto) 0.13 K/uL RDW Standard Deviation 65.7 fL RDW Coefficient of Variation 22.0 % Immature Granulocyte % (Auto) 1.5 % Immature Granulocyte # (Auto) 0.14 K/uL Nucleated RBC Absolute Count (auto) 0.19 K/uL Nucleated Red Blood Cells % 2.1 % Polychromasia 1+ Hypochromasia PRESENT Anisocytosis PRESENT Acanthocytes 1+ Prothrombin Time 39.4 SECONDS Prothromb Time International Ratio 3.9 Activated Partial Thromboplast Time 41.5 SECONDS Partial Thromboplastin Ratio 1.6 Sodium Level 134 mmol/L Potassium Level 4.7 mmol/L Chloride Level 99 mmol/L Carbon Dioxide Level 24 mmol/L Anion Gap 11.0 mmol/L Blood Urea Nitrogen 86 mg/dl Creatinine 4.39 mg/dl Est Creatinine Clear Calc Drug Dose 16.4 ml/min Estimated GFR () 14.5 Estimated GFR (Non- 12.5 BUN/Creatinine Ratio 19.6 Random Glucose 164 mg/dl Calcium Level 7.3 mg/dl Magnesium Level 2.3 mg/dl Total Bilirubin 0.7 mg/dl Direct Bilirubin 0.2 mg/dl Aspartate Amino Transf (AST/SGOT) 42 U/L Alanine Aminotransferase (ALT/SGPT) 16 U/L Alkaline Phosphatase 117 U/L Total Creatine Kinase 44 U/L Creatine Kinase MB 2.6 ng/ml Creatine Kinase MB Ratio 5.9 Total Protein 5.0 gm/dl Albumin 1.8 gm/dl Bedside Troponin I 0.030 ng/ml Bedside Glucose 179 mg/dl Diagnostic Results CHEST ONE VIEW PORTABLE CLINICAL HISTORY: weakness dyspnea COMPARISON STUDY: No previous studies for comparison. FINDINGS: Mild cardiomegaly. Central catheter in the superior Vena cava at the juncture with the right atrium. Probable components of lower lobe atelectasis of the left. Right lung is clear. Mild prominence of pulmonary vasculature. IMPRESSION: Moderate cardiomegaly. Atelectasis left base. Prominent pulmonary vasculature. The above report was generated using voice recognition software. It may contain grammatical, syntax or spelling errors. Electronically signed by: Rex Eckert M.D. 10/12/2017 11:19 AM Dictated Date/Time: 10/12/2017 11:18 AM HEAD WITHOUT CONTRAST (CT) CLINICAL HISTORY: 72 years-old Male with AMS, weakness. Acutely altered mental status with weakness TECHNIQUE: Multiple axial CT images of the head were obtained without contrast. A dose lowering technique was utilized adhering to the principles of ALARA. CT DOSE: 614.27 mGy.cm COMPARISON: None. FINDINGS: No acute intracranial hemorrhage, midline shift, intracranial mass, hydrocephalus, territorial ischemia or abnormal extra-axial collection. Mild to moderate atrophy. Punctate calcifications are noted within the region of the right temporal and left frontal lobes seen on images 21 and 24. Ill-defined areas of low-attenuation within the periventricular white matter suggest chronic microvascular ischemic changes. Calcifications of the tentorium are noted. Encephalomalacia is noted within the left parieto-occipital lobe. The calvarium is intact. The paranasal sinuses, mastoid air cells, and middle ear cavities are clear. IMPRESSION: 1. No acute intracranial abnormality identified. 2. Mild to moderate atrophy with mild chronic microvascular ischemic changes. 3. 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 The above report was generated using voice recognition software. It may contain grammatical, syntax or spelling errors. Electronically signed by: Enrique Carrillo M.D. 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 - Patient alert and oriented to self, monitor mental status - CT head negative - Obtain consent for intubation and confirm code status in AM CV - Continue atorvastatin 40, toprol xl 25, nitro prn - NPO from midnight tonight with bowel prep, oral meds on hold, converted to metoprol tartrate 2.5q6h - Recent echo at [facility] EF 50% - VSS Resp - CXR showed atelectasis at left base - Continue to monitor GI -Zofran 4 units prn for nausea -Pantoprazole -GI consulted, dark brown stool on rectal exam, bowel prep for tomorrow, NPO from midnight -KUB ordered to determine fecal load -Hx of cirrhosis, unknown etiology: RUQ US 09/29/17: Cirrhotic morphology of the liver without gross mass identified. Moderate ascites with a site marked in the left lower quadrant for paracentesis. Right pleural effusion. Nephro - Na 134, K 4.7, BUN 86, Cr 4.39 - CKD stage IV; last dialysis 09/22/17. Unsure if this was his first episode of dialysis, how often he gets dialysis, if he gets IV iron/EPO. Awaiting records Endo -Continue levythyroxine for hypothyroidism -ISS ID Afebrile, normal WBC Treated for cellulitis on posterior legs at previous hospital with vanc/zosyn Consider blood cx Heme: -has received 1 unit, with hgb improved to 6.5; administer 2nd unit and recheck hgb at 2200. -Hold 2 units, likely administer 1 more unit overnight -Goal Hgb 7.5-8 -H&H: 5.3, 16.5; Hbg improved to 6.5 after 1 unit blood; Platelets 174; WBC normal at 9.45 -Given 2.5 vit K in ED, no obvious source of bleeding Resident Physician Supervision Note: Dr. Zamora was resident physician during care of patient. I separately evaluated patient and did history and exam. I discussed the case with the resident and generally agree with the findings and plan. Patient with acute anemia. No strong indication for hemolysis. No evidence of cardiac decompensation. Receiving blood transfusion at this point. Will follow up INR as patient will require anticoagulation. I have personally spent 65 minutes of critical care time in the direct management of this patient. This is a life/limb threatening event. This includes time spent evaluating patient, direct bedside care, chart review, placing orders, interpretation of diagnostic studies, discussion with consultants, patient, and family members, as well as other required patient management activities. This time is exclusive of all separately billable procedures, and teaching time and separate from and in addition to any other critical care service time. Documented By: Ananda Way DO Resident Tracking Resident Involvement: Resident Care Provided Care Provided: Adult Hospital Medicine
--- NOTE | 2017-10-12 17:40 | DIAGNOSTIC IMAGING REPORT ---
ULTRASOUND ASCITES CHECK CLINICAL HISTORY: Abdominal ascites. FINDINGS: Real-time grayscale sonography of all 4 quadrants of the abdomen is performed to assess for abdominal ascites. There is small volume of abdominal ascites, greatest in the pelvis. A right pleural effusion is noted. IMPRESSION: There is a small volume of abdominal ascites. Electronically signed by: Prince Murray M.D. 10/12/2017 5:39 PM Dictated Date/Time: 10/12/2017 5:38 PM
--- NOTE | 2017-10-12 17:48 | DIAGNOSTIC IMAGING REPORT ---
ULTRASOUND RIGHT UPPER QUADRANT ABDOMEN CLINICAL HISTORY: Anemia. Ascites. COMPARISON STUDY: No priors. TECHNIQUE: Real-time, grayscale, and color flow sonography of the right upper quadrant of the abdomen was performed. Images are reviewed in the transverse and longitudinal planes. FINDINGS: Liver: The liver is normal in size and heterogeneous in echotexture. There is mild nodularity of the hepatic surface contour suggesting early change of cirrhosis. There is no intrahepatic biliary ductal dilatation. The main portal vein is patent. Gallbladder: The gallbladder is sober sludge. No shadowing gallstones are identified. There is nonspecific gallbladder wall thickening. This measures up to 5 mm. A sonographic Fernandez's sign is reportedly absent. The common bile duct measures up to 0.4 cm in diameter. Pancreas: Visualized portions of the pancreatic head are grossly normal in appearance. The majority of the pancreas was not well visualized. Right kidney: Survey images of the right kidney demonstrate mild cortical atrophy. There is no hydronephrosis. Ascites: There is trace perihepatic ascites. Pleural spaces: A right pleural effusion is identified. IMPRESSION: 1. Biliary sludge. There is no convincing sonographic evidence of acute cholecystitis. 2. The appearance of the liver suggests early change of cirrhosis. Clinical correlation will be required. 3. A small volume of ascites is seen. 4. There is nonspecific gallbladder wall thickening, likely related to hepatocellular disease and ascites. 5. Small right pleural effusion. Electronically signed by: Prince Murray M.D. 10/12/2017 5:47 PM Dictated Date/Time: 10/12/2017 5:44 PM
[2017-10-12] MEDS: INSULIN ASPART 100 UNITS/ML 3 ML PEN SC SCH (18:00)
--- NOTE | 2017-10-12 20:10 | DIAGNOSTIC IMAGING REPORT ---
KUB CLINICAL HISTORY: Nausea. FINDINGS: 2 AP, portable, supine abdominal radiographs are obtained. No prior studies are available for comparison at the time of dictation. There is a nonobstructed abdominal bowel gas pattern. No evidence of intraperitoneal free air is seen on these supine views. Epicardial pacing leads are noted. Midline sternotomy wires are partially visualized. There is advanced atherosclerotic calcification of the abdominal aorta. There is no radiographic evidence of nephrolithiasis. The skeletal structures are osteopenic. Advanced lumbosacral spondylosis is identified. IMPRESSION: Nonobstructed abdominal bowel gas pattern. Electronically signed by: Prince Murray M.D. 10/12/2017 8:09 PM Dictated Date/Time: 10/12/2017 8:08 PM
[2017-10-12] MEDS ORDERED: ONDANSETRON INJ 2 MG/ML 2 ML VIAL IV PRN (20:45)
[2017-10-12] MEDS: INSULIN GLARGINE SOLOSTAR 100 UNITS/ML 3 ML PEN SC SCH (21:08)
[2017-10-12] MEDS: LAVAGE SOLUTION 4000ML PO SCH (21:50)
[2017-10-12 22:11] LABS: HEMATOCRIT 20.5 % (42-52); HEMOGLOBIN 6.9 g/dL (14.0-18.0)
[2017-10-13] VITALS (36 sets, daily range): BP systolic 91–136; BP diastolic 28–74; PULSE 56–86; TEMP 36.3–37.1; O2SAT 96–100; Ht 172.7 cm; Wt 84.5 kg
[2017-10-13] MEDS: PANTOprazole INJ 40 MG in DEXTROSE 5% 100ML IV SCH ×5 (02:18→21:15)
[2017-10-13] MEDS: LEVOTHYROXINE 75 MCG TAB PO SCH (05:30)
[2017-10-13] MEDS: LAVAGE SOLUTION 4000ML PO SCH (05:30)
[2017-10-13] MEDS: INSULIN ASPART 100 UNITS/ML 3 ML PEN SC SCH ×5 (05:33→23:36)
[2017-10-13 05:56] LABS: EOS % 6.4 %; EOS ABS # 0.63 K/uL (0-0.5); HEMATOCRIT 25.3 % (42-52); HEMOGLOBIN 8.3 g/dL (14.0-18.0); IG# 0.11 K/uL (0.00-0.02); LYMPH % 13.9 %; LYMPH ABS # 1.37 K/uL (1.2-3.4); MEAN CELL VOLUME 87.8 fL (80-100); MEAN CORPUSCULAR HEMOGLOBIN 28.8 pg (25-34); MEAN CORPUSCULAR HGB CONC 32.8 g/dl (32-36); MEAN PLATELET VOLUME 9.7 fL (7.4-10.4); MONO % 9.4 %; MONO ABS # 0.93 K/uL (0.11-0.59); NEUT % 68.2 %; NEUT ABS # 6.73 K/uL (1.4-6.5); NUCLEATED RED BLOOD CELL ABS 0.14 K/uL (0-0); PLATELET COUNT 154 K/uL (130-400); RED CELL DISTRIBUTION WIDTH CV 19.7 % (11.5-14.5); RED CELL DISTRIBUTION WIDTH SD 54.7 fL (36.4-46.3); WHITE BLOOD COUNT 9.87 K/uL (4.8-10.8)
[2017-10-13 06:03] LABS: INR 1.6 (0.9-1.1)
[2017-10-13] MEDS ORDERED: EPOETIN ALFA 10,000 UNITS/ML VIAL IV. SCH (06:30)
[2017-10-13 06:41] LABS: HEMOGLOBIN A1C 5.4 % (4.5-5.6)
[2017-10-13 06:47] LABS: ALBUMIN 2.1 gm/dl (3.4-5.0); CALCIUM 7.5 mg/dl (8.5-10.1); CREATININE 4.81 mg/dl (0.60-1.40); PHOSPHORUS 3.1 mg/dl (2.5-4.9); POTASSIUM 4.6 mmol/L (3.5-5.1); TOTAL PROTEIN 5.8 gm/dl (6.4-8.2)
--- NOTE | 2017-10-13 07:07 | Clinical Documentation Query ---
BASHIR Lawson : CLINICAL DOCUMENTATION QUERY Patient is a 72 year old male admitted for evaluation and treatment of anemia in the setting of mechanical AVR and MVR and associated coumadin therapy. He has recieved IV Vitamin K, IV protonix, has been seen in consultation by GI, three units of PRBC's with pending endoscopic procedures. As appropriate, consider documentation as suggested below as this directly impacts DRG assignment. See coding clinic provided below for clinical example. Thank you. In your clinical opinion is this patient being managed for: ( x ) Coagulation defect/hemorrhagic disorder due to extrinsic circulating anticoagulants/coumadin therapy ( ) Not Agree ( ) Other explanation of clinical findings (Please Explain) ( ) Unable to determine (Please Define) ( ) Need to Discuss The medical record reflects the following clinical findings, treatment, and risk factors. Clinical Indicators: As above, anemia in the setting of coumadin therapy, +FOCB Treatment: He has recieved IV Vitamin K, IV protonix, has been seen in consultation by GI, three units of PRBC's with pending endoscopic procedures Risk Factors: Coumadin therapy CC: Bleeding d/t Therapeutic Anticoagulation Coding Clinic [id number], p14 Question: Should bleeding due to therapeutic anticoagulant be coded as a hemorrhagic disorder (category D68)? Answer: For the most part, "hemorrhagic disorder" or "coagulation defects" must be specifically diagnosed and documented by the provider, in order to assign codes at category D68, Other coagulation defects. However, for bleeding such as hemoptysis, hematuria, hematemesis, hematochezia, etc., that is associated with a drug, as part of anticoagulation therapy, assign code D68.32, Hemorrhagic disorder due to extrinsic circulating anticoagulants. This is supported by the inclusion term at D68.32 of "Drug-induced hemorrhagic disorder." The sequencing of code D68.32 and other codes describing the type or site of bleeding, (e.g., hemoptysis or hematuria), would be dependent on the circumstances of the admission. Copyright (2018), [facility] [employer] ("[employer]"), [place], [place]. Reproduced with permission. No portion of this publication may be copied without the express, written consent of [facility]. Your Clinical Example A 73 yo male presents to the ED from the physician's office for direct admit. He is complaining of blood in his urine. He has a history of recurrent Afib and takes Coumadin on daily basis. Interview of the patient reveals that he has taken his medication as directed. His admitting diagnosis is "Coumadin induced Coagulopathy with hematuria." *This patient's PDX is: D68.32, Hemorrhagic disorder due to extrinsic circulating anticoagulants with R31.9 Hematuria Please clarify and document your clinical opinion in the progress notes and discharge summary. Terms such as "probable", "suspected", "likely", "questionable", "possible", or "still to be ruled out" are acceptable. IF IN AGREEMENT, YOU MUST DOCUMENT ABOVE DIAGNOSTIC STATEMENT IN DAILY PROGRESS NOTES AND DISCHARGE SUMMARY. This document is not part of the patient's record. Thank You, Ananda Pardo, RN [phone]
--- NOTE | 2017-10-13 07:08 | NEPHROLOGY CONSULTATION ---
DATE OF CONSULTATION: 10/13/2017 ATTENDING OF RECORD: Sterling Tolbert MD. REASON FOR CONSULTATION: ESRD. HISTORY OF PRESENT ILLNESS: This is a 72-year-old male with significant history of aortic and mitral valve replacements on chronic anticoagulation with history of rheumatic heart disease. The patient also with underlying diabetes and hypertension as well as atrial fibrillation who has CKD stage IV, being followed by my partner Dr. Carlos Hurley, however, was recently in [place] for cellulitis and eventually progressed to needing first dialysis, first dialysis treatment was at the end of August. The patient continues to be significantly weak and went from [place] to [facility] for rehabilitation, was there less than 24 hours and a repeat lab work the next morning showed hemoglobin levels in the 5s. The patient was sent to [facility] for further evaluation. The patient's hemoglobin was 5.3 and has had received 3 units of blood and is currently now up to 8.3. Tolerating the blood well. Labs pending for this morning. INR was 3.9, was given vitamin K and this morning is down to 1.6. The patient is comfortable, although stiff and rigid. PAST MEDICAL HISTORY: End-stage renal disease, recently started on dialysis 09/22/2017, hypertension, diabetes, atrial fibrillation, aortic and mitral valve replacements, history of congestive heart failure. PAST SURGICAL HISTORY: Aortic and mitral valve replacements, tunneled dialysis catheter, history of CABG, cataract surgeries, left and right CEAs. FAMILY HISTORY: Significant for diabetes. SOCIAL HISTORY: Former smoker, quit many years ago. No alcohol, no drugs. REVIEW OF SYSTEMS: Positive fatigue. No headaches, no blurry vision, no dysphagia. Positive leg weakness. Positive stiff back. No chest pain, no shortness of breath. No nausea or vomiting. No diarrhea or constipation. No rash or itching. All other review of systems otherwise negative. CURRENT MEDICATIONS: Lipitor 40 mg daily, Toprol-XL 25 mg daily, multivitamin daily, Lopressor 2.5 IV q. 6, levothyroxine 75 mcg daily, Lantus 5 units subQ b.i.d., Protonix IV. PHYSICAL EXAMINATION: VITAL SIGNS: Temperature 36.7, pulse 65, respiratory rate is 20, blood pressure is 115/42, satting 100% on room air. GENERAL: Awake, alert, oriented x3. EYES: No scleral icterus. HEENT: NG tube in place. LUNGS: Clear to auscultation. CARDIAC: Irregularly irregular. ABDOMEN: Bowel sounds positive, soft, nontender, nondistended. EXTREMITIES: No significant edema. Left ankle wrapped. NEUROLOGICALLY: Nonfocal. DERMATOLOGIC: There is ulcer in the sacral region. LABORATORIES: Reviewed. IMAGING: Chest x-ray shows moderate cardiomegaly, atelectasis at the left base with some prominent pulmonary vasculature. IMPRESSION AND PLAN: 1. End-stage renal disease. The patient's volume status despite the 3 units of blood appears good. We will dialyze on a 2K bath and remove 1 liter of fluid as blood pressure tolerates. 2. Anemia of chronic kidney disease. We will continue Procrit on dialysis; however, low blood counts are not from the anemia from renal failure and appears to have an active gastrointestinal bleed. 3. Renal osteodystrophy. We will follow phosphorous levels and consider initiation of phosphate binders if necessary. I appreciate the consultation. RICHIE
--- NOTE | 2017-10-13 07:11 | DIAGNOSTIC IMAGING REPORT ---
CHEST ONE VIEW PORTABLE CLINICAL HISTORY: Pulmonary vascular congestion COMPARISON STUDY: 10/12/2017 FINDINGS: There are postsurgical changes of a midline sternotomy. The heart remains enlarged. There is a dual-lumen right subclavian central venous catheter unchanged in position. There are small bilateral pleural effusions. There are associated left basilar airspace opacities, atelectatic versus inflammatory. There is pulmonary venous hypertension.[ IMPRESSION: 1. Cardiomegaly and radiographic evidence of pulmonary venous hypertension 2. Bilateral pleural effusions 3. Left lower lobe airspace opacities, atelectasis versus infectious/inflammatory Electronically signed by: Brando Gibson M.D. 10/13/2017 7:09 AM Dictated Date/Time: 10/13/2017 7:08 AM
[2017-10-13] MEDS ORDERED: HEPARIN IV LOW DOSE NO BOLUS SCH (08:22)
[2017-10-13] MEDS: CEROVITE ADV FORMULA TAB PO SCH (09:00)
[2017-10-13] MEDS: METOPROLOL TARTRATE 1 MG/ML VIAL IV. SCH ×4 (09:00→23:35)
[2017-10-13] MEDS: ATORVASTATIN 40 MG TAB PO SCH (09:00)
[2017-10-13] MEDS ORDERED: METOPROLOL SUCC 25MG EXT REL TAB PO SCH (09:00)
[2017-10-13] MEDS: HEPARIN 25,000 UNIT/500ML D5W 500 ML IV PRN ×3 (09:21→21:16)
[2017-10-13 09:41] LABS: INR 1.5 (0.9-1.1); PTT PATIENT 30.4 SECONDS (21.0-31.0)
[2017-10-13 10:23] LABS: BASO % 0.6 %; BASO ABS # 0.05 K/uL (0-0.2); EOS % 5.6 %; EOS ABS # 0.47 K/uL (0-0.5); HEMATOCRIT 23.3 % (42-52); HEMOGLOBIN 7.7 g/dL (14.0-18.0); IG# 0.08 K/uL (0.00-0.02); LYMPH % 15.4 %; LYMPH ABS # 1.29 K/uL (1.2-3.4); MEAN CELL VOLUME 87.9 fL (80-100); MEAN CORPUSCULAR HEMOGLOBIN 29.1 pg (25-34); MEAN PLATELET VOLUME 10.5 fL (7.4-10.4); MONO % 8.2 %; MONO ABS # 0.69 K/uL (0.11-0.59); NEUT % 69.2 %; NEUT ABS # 5.82 K/uL (1.4-6.5); NUCLEATED RED BLOOD CELL ABS 0.13 K/uL (0-0); PLATELET COUNT 157 K/uL (130-400); RED CELL DISTRIBUTION WIDTH CV 20.4 % (11.5-14.5); RED CELL DISTRIBUTION WIDTH SD 56.1 fL (36.4-46.3)
--- NOTE | 2017-10-13 10:31 | Progress Note ---
Progress Note Date of Service Oct 13, 2017. Progress Note Events noted. Pt s/p 3 U PRBC with appropriate rise in Hgb. Received Golytely prep with "large amts of brown stool." He has no new complaints this morning. Date Time Temp Pulse Resp B/P (MAP) Pulse Ox O2 Delivery O2 Flow Rate FiO2 10/13/17 08:00 Room Air 10/13/17 08:00 61 18 136/45 (75) 99 Room Air 10/13/17 06:01 63 21 124/51 (75) 100 Room Air 10/13/17 04:11 86 24 124/74 (91) 99 Room Air 10/13/17 04:00 100 Room Air 10/13/17 03:00 36.7 65 20 115/42 (66) 99 Room Air 10/13/17 02:01 36.7 67 18 120/50 (73) 99 Room Air 10/13/17 00:45 36.5 58 22 107/36 100 10/13/17 00:15 36.5 56 22 104/37 100 10/13/17 00:01 36.5 60 20 110/28 (55) 100 Room Air 10/13/17 00:01 100 Room Air 10/12/17 23:45 36.4 59 18 99/40 99 10/12/17 23:15 36.4 53 19 101/34 100 10/12/17 23:00 36.4 55 22 105/34 99 10/12/17 22:39 36.5 54 24 96/47 100 10/12/17 22:00 55 22 96/47 (63) 100 Room Air 10/12/17 20:01 36.7 57 17 111/39 (63) 98 Room Air 10/12/17 20:00 99 Room Air 10/12/17 18:31 36.6 71 24 158/54 99 10/12/17 18:00 78 27 158/54 (88) 99 Room Air 10/12/17 17:50 36.6 65 27 113/42 99 10/12/17 16:44 36.5 78 25 141/56 98 10/12/17 16:16 64 26 121/47 99 10/12/17 16:03 36.7 66 22 131/57 99 10/12/17 16:00 99 Room Air 10/12/17 16:00 36.7 67 19 131/57 (81) 100 Room Air 10/12/17 14:32 36.8 67 16 129/39 99 10/12/17 14:10 73 16 110/62 97 Room Air 10/12/17 13:55 36.8 77 16 93/35 96 10/12/17 13:31 36.7 71 16 110/52 98 10/12/17 13:20 98 Nasal Cannula 2.0 10/12/17 13:17 69 10/12/17 13:16 36.5 81 16 100/40 98 10/12/17 11:59 71 16 120/46 98 Room Air 10/12/17 11:25 74 16 101/41 98 Room Air 10/12/17 10:45 70 10/12/17 10:39 36.8 70 25 104/45 97 Appears chronically ill. JVP to sternal angle. IRIR Incr WOB. Pauses for breath in between words. Coarse BS throughout Abd is mildly distended and dull to percuss No pedal edema Rectal exam with brown stool Last 24 Hours Test 10/12/17 10:58 10/12/17 11:04 10/12/17 15:45 10/12/17 15:49 White Blood Count 9.45 K/uL Red Blood Count 1.78 M/uL Hemoglobin 5.3 g/dL 6.7 g/dL Hematocrit 16.5 % 20.2 % Mean Corpuscular Volume 92.7 fL Mean Corpuscular Hemoglobin 29.8 pg Mean Corpuscular Hemoglobin Concent 32.1 g/dl Platelet Count 174 K/uL Mean Platelet Volume 9.8 fL Neutrophils (%) (Auto) 69.0 % Lymphocytes (%) (Auto) 17.1 % Monocytes (%) (Auto) 8.5 % Eosinophils (%) (Auto) 2.5 % Basophils (%) (Auto) 1.4 % Neutrophils # (Auto) 6.52 K/uL Lymphocytes # (Auto) 1.62 K/uL Monocytes # (Auto) 0.80 K/uL Eosinophils # (Auto) 0.24 K/uL Basophils # (Auto) 0.13 K/uL RDW Standard Deviation 65.7 fL RDW Coefficient of Variation 22.0 % Immature Granulocyte % (Auto) 1.5 % Immature Granulocyte # (Auto) 0.14 K/uL Nucleated RBC Absolute Count (auto) 0.19 K/uL Nucleated Red Blood Cells % 2.1 % Polychromasia 1+ Hypochromasia PRESENT Anisocytosis PRESENT Acanthocytes 1+ Peripheral Blood Smear Path Consult Prothrombin Time 39.4 SECONDS Prothromb Time International Ratio 3.9 Activated Partial Thromboplast Time 41.5 SECONDS Partial Thromboplastin Ratio 1.6 Sodium Level 134 mmol/L Potassium Level 4.7 mmol/L Chloride Level 99 mmol/L Carbon Dioxide Level 24 mmol/L Anion Gap 11.0 mmol/L Blood Urea Nitrogen 86 mg/dl Creatinine 4.39 mg/dl Est Creatinine Clear Calc Drug Dose 16.4 ml/min Estimated GFR () 14.5 Estimated GFR (Non- 12.5 BUN/Creatinine Ratio 19.6 Random Glucose 164 mg/dl Calcium Level 7.3 mg/dl Magnesium Level 2.3 mg/dl Total Bilirubin 0.7 mg/dl Direct Bilirubin 0.2 mg/dl Aspartate Amino Transf (AST/SGOT) 42 U/L Alanine Aminotransferase (ALT/SGPT) 16 U/L Alkaline Phosphatase 117 U/L Total Creatine Kinase 44 U/L Creatine Kinase MB 2.6 ng/ml Creatine Kinase MB Ratio 5.9 Total Protein 5.0 gm/dl Albumin 1.8 gm/dl Bedside Troponin I 0.030 ng/ml Bedside Glucose 179 mg/dl Lactate Dehydrogenase 321 U/L Test 10/12/17 18:34 10/12/17 20:29 10/12/17 21:55 10/13/17 00:09 Bedside Glucose 174 mg/dl 176 mg/dl 161 mg/dl Hemoglobin 6.9 g/dL Hematocrit 20.5 % Test 10/13/17 02:35 10/13/17 05:29 10/13/17 05:32 10/13/17 09:22 Stool Occult Blood POSITIVE White Blood Count 9.87 K/uL Red Blood Count 2.88 M/uL Hemoglobin 8.3 g/dL Hematocrit 25.3 % Mean Corpuscular Volume 87.8 fL Mean Corpuscular Hemoglobin 28.8 pg Mean Corpuscular Hemoglobin Concent 32.8 g/dl Platelet Count 154 K/uL Mean Platelet Volume 9.7 fL Neutrophils (%) (Auto) 68.2 % Lymphocytes (%) (Auto) 13.9 % Monocytes (%) (Auto) 9.4 % Eosinophils (%) (Auto) 6.4 % Basophils (%) (Auto) 1.0 % Neutrophils # (Auto) 6.73 K/uL Lymphocytes # (Auto) 1.37 K/uL Monocytes # (Auto) 0.93 K/uL Eosinophils # (Auto) 0.63 K/uL Basophils # (Auto) 0.10 K/uL RDW Standard Deviation 54.7 fL RDW Coefficient of Variation 19.7 % Immature Granulocyte % (Auto) 1.1 % Immature Granulocyte # (Auto) 0.11 K/uL Nucleated RBC Absolute Count (auto) 0.14 K/uL Nucleated Red Blood Cells % 1.4 % Polychromasia 1+ Anisocytosis PRESENT Prothrombin Time 16.2 SECONDS 15.2 SECONDS Prothromb Time International Ratio 1.6 1.5 Sodium Level 135 mmol/L Potassium Level 4.6 mmol/L Chloride Level 98 mmol/L Carbon Dioxide Level 26 mmol/L Anion Gap 11.0 mmol/L Blood Urea Nitrogen 94 mg/dl Creatinine 4.81 mg/dl Est Creatinine Clear Calc Drug Dose 14.8 ml/min Estimated GFR () 13.0 Estimated GFR (Non- 11.2 BUN/Creatinine Ratio 19.6 Random Glucose 113 mg/dl Estimated Average Glucose 108 mg/dl Hemoglobin A1c 5.4 % Calcium Level 7.5 mg/dl Phosphorus Level 3.1 mg/dl Magnesium Level 2.4 mg/dl Total Bilirubin 1.4 mg/dl Direct Bilirubin 0.6 mg/dl Aspartate Amino Transf (AST/SGOT) 52 U/L Alanine Aminotransferase (ALT/SGPT) 19 U/L Alkaline Phosphatase 142 U/L Total Protein 5.8 gm/dl Albumin 2.1 gm/dl Bedside Glucose 126 mg/dl Activated Partial Thromboplast Time 30.4 SECONDS Partial Thromboplastin Ratio 1.2 Troponin I 0.034 ng/ml Hepatitis B Surface Antibody NEG Test 10/13/17 10:13 A/P: Anemia - Pt does not appear to be acutely bleeding, and remains high risk for anesthesia given uremia and heart failure/resp insufficiency. He is scheduled for dialysis today; will defer endoscopy until Monday, in the hope that he can be medically optimized over the weekend. Of note, his prep appears fair to poor. He can be placed on full liquids today and tomorrow, but should undergo repeat prep on Monday (clears entire day Monday , 1 gallon Golytely beginning at noon and completed by 5 pm). There is no need for PPI gtt in the absence of acute bleeding. Rec oral BID PPI. Given his thrombotic risk, ok with low dose heparin. Please call with questions over the weekend.
--- NOTE | 2017-10-13 10:37 | Gastroenterology Progress Note ---
Progress Note Date of Service: Oct 13, 2017 Subjective Pt evaluation today including: conversation w/ patient, physical exam, chart review, lab review Pt was seen and evaluated, chart reviewed. S/P transfusion of 3 units w/ repeat HGB 8.7/25. Was prepped per ICU for colonoscopy, large liquid brown stool and a formed dark stool that was heme + was noted. No BRBPR. No hematemesis, coffee ground emesis. No CP, SOB but pt is weak. EGD: none Colonoscopy: none Family history of GI malignancy: none RUQ US 09/29/17: Cirrhotic morphology of the liver without gross mass identified. Moderate ascites with a site marked in the left lower quadrant for paracentesis. Right pleural effusion. Review of Systems Constitutional: No fever Respiratory: No cough Cardiac: No chest pain Abdomen: + nausea, No pain, No vomiting, No diarrhea, No constipation Medications Current Inpatient Medications Medications (Trade) Dose Ordered Sig/Britton Route Start Time Stop Time Status Last Admin Dose Admin Acetaminophen (Tylenol Tab) 650 mg Q4H PRN PO 10/12/17 14:00 11/11/17 13:59 Nitroglycerin (Nitrostat Tab) 0.4 mg UD PRN SL 10/12/17 14:00 11/11/17 13:59 Morphine Sulfate (MoRPHine SULFATE INJ) 2 mg Q2H PRN IV 10/12/17 14:00 10/26/17 13:59 Miscellaneous Information (Icu Protocol For Hyperglycemia) 1 ea PRN PRN N/A 10/12/17 14:00 10/14/17 13:59 Atorvastatin Calcium (Lipitor Tab) 40 mg DAILY PO 10/13/17 09:00 11/12/17 08:59 Docusate Sodium (coLACE CAP) 100 mg BID PRN PO 10/12/17 14:00 11/11/17 13:59 Levothyroxine Sodium (Synthroid Tab) 75 mcg DAILYBB PO 10/13/17 06:00 11/12/17 06:59 10/13/17 05:30 75 MCG Metoprolol Succinate (Toprol Xl Tab) 25 mg DAILY PO 10/13/17 09:00 11/12/17 08:59 Future Hold Multivitamins/ Minerals (Multivitamin W/ Minerals Tab) 1 tab DAILY PO 10/13/17 09:00 11/12/17 08:59 Insulin Glargine (Lantus Solostar Pen) 5 units BID SC 10/12/17 21:00 11/11/17 20:59 Future hold 10/12/17 21:08 5 UNITS Insulin Aspart (novoLOG ASPART) SLIDING SCALE G... Q6 SC 10/12/17 18:00 11/11/17 17:59 Pantoprazole Sodium 40 mg/ Dextrose 100 ml @ 20 mls/hr Q5H IV 10/12/17 16:00 11/11/17 15:59 10/13/17 06:50 20 MLS/HR Ondansetron HCl (Zofran Inj) 4 mg Q4H PRN IV 10/12/17 20:45 11/11/17 20:44 Metoprolol Tartrate (Lopressor Iv) 2.5 mg Q6 IV. 10/13/17 09:00 11/12/17 08:59 Epoetin Peter (Procrit Inj) 10,000 units TODAY@0630 IV. 10/13/17 06:30 10/13/17 23:59 Heparin Sodium/ Dextrose 500 ml @ 18 mls/hr Q24H PRN IV 10/13/17 08:45 11/12/17 08:44 10/13/17 10:12 18 MLS/HR Objective Vital Signs Date Time Temp Pulse Resp B/P (MAP) Pulse Ox O2 Delivery O2 Flow Rate FiO2 10/13/17 10:18 36.3 69 18 123/46 (71) 99 Room Air 10/13/17 08:00 Room Air 10/13/17 08:00 61 18 136/45 (75) 99 Room Air 10/13/17 06:01 63 21 124/51 (75) 100 Room Air 10/13/17 04:11 86 24 124/74 (91) 99 Room Air 10/13/17 04:00 100 Room Air 10/13/17 03:00 36.7 65 20 115/42 (66) 99 Room Air 10/13/17 02:01 36.7 67 18 120/50 (73) 99 Room Air 10/13/17 00:45 36.5 58 22 107/36 100 10/13/17 00:15 36.5 56 22 104/37 100 10/13/17 00:01 36.5 60 20 110/28 (55) 100 Room Air 10/13/17 00:01 100 Room Air 10/12/17 23:45 36.4 59 18 99/40 99 10/12/17 23:15 36.4 53 19 101/34 100 10/12/17 23:00 36.4 55 22 105/34 99 10/12/17 22:39 36.5 54 24 96/47 100 10/12/17 22:00 55 22 96/47 (63) 100 Room Air 10/12/17 20:01 36.7 57 17 111/39 (63) 98 Room Air 10/12/17 20:00 99 Room Air 10/12/17 18:31 36.6 71 24 158/54 99 10/12/17 18:00 78 27 158/54 (88) 99 Room Air 10/12/17 17:50 36.6 65 27 113/42 99 10/12/17 16:44 36.5 78 25 141/56 98 10/12/17 16:16 64 26 121/47 99 10/12/17 16:03 36.7 66 22 131/57 99 10/12/17 16:00 99 Room Air 10/12/17 16:00 36.7 67 19 131/57 (81) 100 Room Air 10/12/17 14:32 36.8 67 16 129/39 99 10/12/17 14:10 73 16 110/62 97 Room Air 10/12/17 13:55 36.8 77 16 93/35 96 10/12/17 13:31 36.7 71 16 110/52 98 10/12/17 13:20 98 Nasal Cannula 2.0 10/12/17 13:17 69 10/12/17 13:16 36.5 81 16 100/40 98 10/12/17 11:59 71 16 120/46 98 Room Air 10/12/17 11:25 74 16 101/41 98 Room Air 10/12/17 10:45 70 10/12/17 10:39 36.8 70 25 104/45 97 Physical Exam General Appearance: + pertinent finding (ill appearing, weak) Eyes: PERRL Neck: supple Respiratory/Chest: lungs clear, normal breath sounds Cardiovascular: + irregularly irregular Abdomen: normal bowel sounds, non tender, soft, no organomegaly Neurologic/Psych: alert, normal mood/affect, oriented x 3 Skin: normal color Laboratory Results Last 24 Hours Test 10/12/17 10:58 10/12/17 11:04 10/12/17 15:45 10/12/17 15:49 White Blood Count 9.45 K/uL Red Blood Count 1.78 M/uL Hemoglobin 5.3 g/dL 6.7 g/dL Hematocrit 16.5 % 20.2 % Mean Corpuscular Volume 92.7 fL Mean Corpuscular Hemoglobin 29.8 pg Mean Corpuscular Hemoglobin Concent 32.1 g/dl Platelet Count 174 K/uL Mean Platelet Volume 9.8 fL Neutrophils (%) (Auto) 69.0 % Lymphocytes (%) (Auto) 17.1 % Monocytes (%) (Auto) 8.5 % Eosinophils (%) (Auto) 2.5 % Basophils (%) (Auto) 1.4 % Neutrophils # (Auto) 6.52 K/uL Lymphocytes # (Auto) 1.62 K/uL Monocytes # (Auto) 0.80 K/uL Eosinophils # (Auto) 0.24 K/uL Basophils # (Auto) 0.13 K/uL RDW Standard Deviation 65.7 fL RDW Coefficient of Variation 22.0 % Immature Granulocyte % (Auto) 1.5 % Immature Granulocyte # (Auto) 0.14 K/uL Nucleated RBC Absolute Count (auto) 0.19 K/uL Nucleated Red Blood Cells % 2.1 % Polychromasia 1+ Hypochromasia PRESENT Anisocytosis PRESENT Acanthocytes 1+ Peripheral Blood Smear Path Consult Prothrombin Time 39.4 SECONDS Prothromb Time International Ratio 3.9 Activated Partial Thromboplast Time 41.5 SECONDS Partial Thromboplastin Ratio 1.6 Sodium Level 134 mmol/L Potassium Level 4.7 mmol/L Chloride Level 99 mmol/L Carbon Dioxide Level 24 mmol/L Anion Gap 11.0 mmol/L Blood Urea Nitrogen 86 mg/dl Creatinine 4.39 mg/dl Est Creatinine Clear Calc Drug Dose 16.4 ml/min Estimated GFR () 14.5 Estimated GFR (Non- 12.5 BUN/Creatinine Ratio 19.6 Random Glucose 164 mg/dl Calcium Level 7.3 mg/dl Magnesium Level 2.3 mg/dl Total Bilirubin 0.7 mg/dl Direct Bilirubin 0.2 mg/dl Aspartate Amino Transf (AST/SGOT) 42 U/L Alanine Aminotransferase (ALT/SGPT) 16 U/L Alkaline Phosphatase 117 U/L Total Creatine Kinase 44 U/L Creatine Kinase MB 2.6 ng/ml Creatine Kinase MB Ratio 5.9 Total Protein 5.0 gm/dl Albumin 1.8 gm/dl Bedside Troponin I 0.030 ng/ml Bedside Glucose 179 mg/dl Lactate Dehydrogenase 321 U/L Test 10/12/17 18:34 10/12/17 20:29 10/12/17 21:55 10/13/17 00:09 Bedside Glucose 174 mg/dl 176 mg/dl 161 mg/dl Hemoglobin 6.9 g/dL Hematocrit 20.5 % Test 10/13/17 02:35 10/13/17 05:29 10/13/17 05:32 10/13/17 09:22 Stool Occult Blood POSITIVE White Blood Count 9.87 K/uL Red Blood Count 2.88 M/uL Hemoglobin 8.3 g/dL Hematocrit 25.3 % Mean Corpuscular Volume 87.8 fL Mean Corpuscular Hemoglobin 28.8 pg Mean Corpuscular Hemoglobin Concent 32.8 g/dl Platelet Count 154 K/uL Mean Platelet Volume 9.7 fL Neutrophils (%) (Auto) 68.2 % Lymphocytes (%) (Auto) 13.9 % Monocytes (%) (Auto) 9.4 % Eosinophils (%) (Auto) 6.4 % Basophils (%) (Auto) 1.0 % Neutrophils # (Auto) 6.73 K/uL Lymphocytes # (Auto) 1.37 K/uL Monocytes # (Auto) 0.93 K/uL Eosinophils # (Auto) 0.63 K/uL Basophils # (Auto) 0.10 K/uL RDW Standard Deviation 54.7 fL RDW Coefficient of Variation 19.7 % Immature Granulocyte % (Auto) 1.1 % Immature Granulocyte # (Auto) 0.11 K/uL Nucleated RBC Absolute Count (auto) 0.14 K/uL Nucleated Red Blood Cells % 1.4 % Polychromasia 1+ Anisocytosis PRESENT Prothrombin Time 16.2 SECONDS 15.2 SECONDS Prothromb Time International Ratio 1.6 1.5 Sodium Level 135 mmol/L Potassium Level 4.6 mmol/L Chloride Level 98 mmol/L Carbon Dioxide Level 26 mmol/L Anion Gap 11.0 mmol/L Blood Urea Nitrogen 94 mg/dl Creatinine 4.81 mg/dl Est Creatinine Clear Calc Drug Dose 14.8 ml/min Estimated GFR () 13.0 Estimated GFR (Non- 11.2 BUN/Creatinine Ratio 19.6 Random Glucose 113 mg/dl Estimated Average Glucose 108 mg/dl Hemoglobin A1c 5.4 % Calcium Level 7.5 mg/dl Phosphorus Level 3.1 mg/dl Magnesium Level 2.4 mg/dl Total Bilirubin 1.4 mg/dl Direct Bilirubin 0.6 mg/dl Aspartate Amino Transf (AST/SGOT) 52 U/L Alanine Aminotransferase (ALT/SGPT) 19 U/L Alkaline Phosphatase 142 U/L Total Protein 5.8 gm/dl Albumin 2.1 gm/dl Bedside Glucose 126 mg/dl Activated Partial Thromboplast Time 30.4 SECONDS Partial Thromboplastin Ratio 1.2 Troponin I 0.034 ng/ml Hepatitis B Surface Antigen NEG Hepatitis B Surface Antibody NEG Test 10/13/17 10:13 White Blood Count 8.40 K/uL Red Blood Count 2.65 M/uL Hemoglobin 7.7 g/dL Hematocrit 23.3 % Mean Corpuscular Volume 87.9 fL Mean Corpuscular Hemoglobin 29.1 pg Mean Corpuscular Hemoglobin Concent 33.0 g/dl Platelet Count 157 K/uL Mean Platelet Volume 10.5 fL Neutrophils (%) (Auto) 69.2 % Lymphocytes (%) (Auto) 15.4 % Monocytes (%) (Auto) 8.2 % Eosinophils (%) (Auto) 5.6 % Basophils (%) (Auto) 0.6 % Neutrophils # (Auto) 5.82 K/uL Lymphocytes # (Auto) 1.29 K/uL Monocytes # (Auto) 0.69 K/uL Eosinophils # (Auto) 0.47 K/uL Basophils # (Auto) 0.05 K/uL RDW Standard Deviation 56.1 fL RDW Coefficient of Variation 20.4 % Immature Granulocyte % (Auto) 1.0 % Immature Granulocyte # (Auto) 0.08 K/uL Nucleated RBC Absolute Count (auto) 0.13 K/uL Nucleated Red Blood Cells % 1.5 % Assessment and Plan 72 year old male w/ multiple comorbidities who is admitted one day following discharge from [facility] for evaluation of weakness and anemia - pt was seen and evaluated. Has history of anemia, recently transfused x 2 w/ HGB 7.8, today HGB 5.3 w/ INR 3. No evidence of acute GI bleeding. GI asked to evaluate for anemia and to rule out GIB as the pt is requiring anticoagulation and has never had an EGD/Colonoscopy before. He continues to be nauseated x months, will rule out constipation. GI would recommend to optimize pt comorbidities as he is high risk of endoscopic evaluation and plan for EGD/Colon early next week unless there is evidence of acute GI blood loss.This was discussed at bedside w/ Dr. Abrams, Dr. Way and additional ICU staff. Patients procedures will need to be done in the OR, will need to arrange timing w/ the OR as well. Trend H&H Transfuse PRN Monitor output IV PPI BID Plan for endoscopic evaluation once medically stable. Pt will need to be re- evaluated over the weekend by GI to determine timing of endoscopy. Please call with any acute changes, questions or concerns.
--- NOTE | 2017-10-13 15:08 | Palliative Care Progress Note ---
Palliative Care Progress Note Date of Service Oct 13, 2017. Subjective Consult received, chart reviewed. I stopped in to see patient twice today. Once he was receiving dialysis, second time he had multiple visitors in room. I will see the patient on Monday and follow up to have palliative/goals of care discussion. Thank you kindly for this consult.
--- NOTE | 2017-10-13 15:44 | Critical Care Progress Note ---
Critical Care Progress Note Date of Service Oct 13, 2017. ICU Day ICU Day Number: [address] Subjective Patient states he is feeling better than yesterday, less foggy, no longer dyspneic or dizzy, reports feeling fatigued Objective GENERAL: Awake, alert, pale, in no distress, NGT in situ HENT: Normocephalic, atraumatic. Oropharynx unremarkable. EYES: Normal conjunctiva. Sclera non-icteric. NECK: Supple. No nuchal rigidity. FROM. No JVD. RESPIRATORY: Clear to auscultation. CARDIAC: Irregularly irregular. Extremities warm and well perfused. ABDOMEN: Soft, non-distended. No tenderness to palpation. No rebound or guarding. No masses. MUSCULOSKELETAL: Chest examination reveals no tenderness. Patient has multiple wounds on right buttocks, right calf LOWER EXTREMITIES: Calves are equal size bilaterally and non-tender. No edema. No discoloration. SKIN: No rash or jaundice noted. Multiple scratches and bruises on all extremities. Assessment & Plan 72 yo male significant PMH admitted for elevated INR and Hgb of 5.3. Transfused 3 units blood in house with Hb increase to 8.3 and subsequent decrease to 7.7. 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 Restarted on low dose heparin at 1030 this AM. - Trop 0.03 on admission. Repeat this AM 0.034. - CXR shows pulmonary HTN - VSS, but has occasional episodes of asymptomatic bradycardia. Hx of SSS but no pacemaker. Resp - CXR showed atelectasis/airspace opacities at left base and bilateral pleural effusions - VSS, Ox sat 99 on RA - Continue to monitor GI -Zofran 4 units prn for nausea -Pantoprazole IV -GI consulted, dark brown stool on rectal exam, bowel prep overnight, NPO from midnight for possible scope today -Hx of cirrhosis, unknown etiology: RUQ US 09/29/17: Cirrhotic morphology of the liver without gross mass identified. Moderate ascites with a site marked in the left lower quadrant for paracentesis. Right pleural effusion. -FOB positive, Hep B negative thus far Nephro - Na 135, K 4.7, BUN 94, Cr 4.81 - CKD stage IV; last dialysis 09/22/17. Per family, he had not required dialysis prior to last hospital admission, and was told he would need it 3x/ week. Unsure if he gets IV iron/EPO. - Awaiting records - For dialysis today per Dr. Holland with 1L removal planned. Continue to monitor Phos level. - Watch cath site. yellowed purulent lesions surrounding access site. continue to monitor Endo -Continue levythyroxine for hypothyroidism -ISS -Glucose levels running 120-130 ID Afebrile, normal WBC Treated for cellulitis on posterior legs at previous hospital with vanc/zosyn Consider blood cx Wound culture sent Heme: -Multifactorial anemia: ?chronic disease, ?acute blood loss -has received 3 units, with hgb improved to 8.3; Hct 25, has since gone back to hb 7.7 -Platelets 154; WBC normal at 9.87 -Given 2.5 vit K in ED, no obvious source of bleeding -FOB positive -INR 1.6; started on low dose heparin this AM Resident Physician Supervision Note: Dr. Armstrong was resident physician during care of patient. I separately evaluated patient and did history and exam. I discussed the case with the resident and generally agree with the findings and plan. I do not believe the elevated troponin is evidence of active ischemia. Patient placed on heparin anticoagulation due to heart valve. Possibility of GI bleeding still exists. Patient remains critically ill. Maintain 2 units PRBCs. I have personally spent 40 minutes of critical care time in the direct management of this patient. This is a life/limb threatening event. This includes time spent evaluating patient, direct bedside care, chart review, placing orders, interpretation of diagnostic studies, discussion with consultants, patient, and family members, as well as other required patient management activities. This time is exclusive of all separately billable procedures, and teaching time and separate from and in addition to any other critical care service time. Documented By: Ananda Way DO Consults & Procedures Consultants: Nephrology: Dr. Holland Gastro: Dr. Abrams Wound care Procedures: 10/12/17: NGT placement for bowel prep Data Medications: Current Inpatient Medications Medications (Trade) Dose Ordered Sig/Britton Route Start Time Stop Time Status Last Admin Dose Admin Acetaminophen (Tylenol Tab) 650 mg Q4H PRN PO 10/12/17 14:00 11/11/17 13:59 Nitroglycerin (Nitrostat Tab) 0.4 mg UD PRN SL 10/12/17 14:00 11/11/17 13:59 Morphine Sulfate (MoRPHine SULFATE INJ) 2 mg Q2H PRN IV 10/12/17 14:00 10/26/17 13:59 Miscellaneous Information (Icu Protocol For Hyperglycemia) 1 ea PRN PRN N/A 10/12/17 14:00 10/14/17 13:59 Atorvastatin Calcium (Lipitor Tab) 40 mg DAILY PO 10/13/17 09:00 11/12/17 08:59 Docusate Sodium (coLACE CAP) 100 mg BID PRN PO 10/12/17 14:00 11/11/17 13:59 Levothyroxine Sodium (Synthroid Tab) 75 mcg DAILYBB PO 10/13/17 06:00 11/12/17 06:59 10/13/17 05:30 75 MCG Metoprolol Succinate (Toprol Xl Tab) 25 mg DAILY PO 10/13/17 09:00 11/12/17 08:59 Future Hold Multivitamins/ Minerals (Multivitamin W/ Minerals Tab) 1 tab DAILY PO 10/13/17 09:00 11/12/17 08:59 Insulin Glargine (Lantus Solostar Pen) 5 units BID SC 10/12/17 21:00 11/11/17 20:59 10/12/17 21:08 5 UNITS Insulin Aspart (novoLOG ASPART) SLIDING SCALE G... Q6 SC 10/12/17 18:00 11/11/17 17:59 Pantoprazole Sodium 40 mg/ Dextrose 100 ml @ 20 mls/hr Q5H IV 10/12/17 16:00 11/11/17 15:59 10/13/17 06:50 20 MLS/HR Ondansetron HCl (Zofran Inj) 4 mg Q4H PRN IV 10/12/17 20:45 11/11/17 20:44 Metoprolol Tartrate (Lopressor Iv) 2.5 mg Q6 IV. 10/13/17 09:00 11/12/17 08:59 Epoetin Peter (Procrit Inj) 10,000 units TODAY@0630 IV. 10/13/17 06:30 10/13/17 23:59 I & O: 10/12/17 10/13/17 10/14/17 08:00 08:00 08:00 Intake Total 4955 ml Balance 4955 ml Vital Signs: Date Time Temp Pulse Resp B/P (MAP) Pulse Ox O2 Delivery O2 Flow Rate FiO2 10/13/17 06:01 63 21 124/51 (75) 100 Room Air 10/13/17 04:11 86 24 124/74 (91) 99 Room Air 10/13/17 04:00 100 Room Air 10/13/17 03:00 36.7 65 20 115/42 (66) 99 Room Air 10/13/17 02:01 36.7 67 18 120/50 (73) 99 Room Air 10/13/17 00:45 36.5 58 22 107/36 100 10/13/17 00:15 36.5 56 22 104/37 100 10/13/17 00:01 36.5 60 20 110/28 (55) 100 Room Air 10/13/17 00:01 100 Room Air 10/12/17 23:45 36.4 59 18 99/40 99 10/12/17 23:15 36.4 53 19 101/34 100 10/12/17 23:00 36.4 55 22 105/34 99 10/12/17 22:39 36.5 54 24 96/47 100 10/12/17 22:00 55 22 96/47 (63) 100 Room Air 10/12/17 20:01 36.7 57 17 111/39 (63) 98 Room Air 10/12/17 20:00 99 Room Air 10/12/17 18:31 36.6 71 24 158/54 99 10/12/17 18:00 78 27 158/54 (88) 99 Room Air 10/12/17 17:50 36.6 65 27 113/42 99 10/12/17 16:44 36.5 78 25 141/56 98 10/12/17 16:16 64 26 121/47 99 10/12/17 16:03 36.7 66 22 131/57 99 10/12/17 16:00 99 Room Air 10/12/17 16:00 36.7 67 19 131/57 (81) 100 Room Air 10/12/17 14:32 36.8 67 16 129/39 99 10/12/17 14:10 73 16 110/62 97 Room Air 10/12/17 13:55 36.8 77 16 93/35 96 10/12/17 13:31 36.7 71 16 110/52 98 10/12/17 13:20 98 Nasal Cannula 2.0 10/12/17 13:17 69 10/12/17 13:16 36.5 81 16 100/40 98 10/12/17 11:59 71 16 120/46 98 Room Air 10/12/17 11:25 74 16 101/41 98 Room Air 10/12/17 10:45 70 10/12/17 10:39 36.8 70 25 104/45 97 Laboratory Results: Last 24 Hours Test 10/12/17 10:58 10/12/17 11:04 10/12/17 15:45 10/12/17 15:49 White Blood Count 9.45 K/uL Red Blood Count 1.78 M/uL Hemoglobin 5.3 g/dL 6.7 g/dL Hematocrit 16.5 % 20.2 % Mean Corpuscular Volume 92.7 fL Mean Corpuscular Hemoglobin 29.8 pg Mean Corpuscular Hemoglobin Concent 32.1 g/dl Platelet Count 174 K/uL Mean Platelet Volume 9.8 fL Neutrophils (%) (Auto) 69.0 % Lymphocytes (%) (Auto) 17.1 % Monocytes (%) (Auto) 8.5 % Eosinophils (%) (Auto) 2.5 % Basophils (%) (Auto) 1.4 % Neutrophils # (Auto) 6.52 K/uL Lymphocytes # (Auto) 1.62 K/uL Monocytes # (Auto) 0.80 K/uL Eosinophils # (Auto) 0.24 K/uL Basophils # (Auto) 0.13 K/uL RDW Standard Deviation 65.7 fL RDW Coefficient of Variation 22.0 % Immature Granulocyte % (Auto) 1.5 % Immature Granulocyte # (Auto) 0.14 K/uL Nucleated RBC Absolute Count (auto) 0.19 K/uL Nucleated Red Blood Cells % 2.1 % Polychromasia 1+ Hypochromasia PRESENT Anisocytosis PRESENT Acanthocytes 1+ Peripheral Blood Smear Path Consult Prothrombin Time 39.4 SECONDS Prothromb Time International Ratio 3.9 Activated Partial Thromboplast Time 41.5 SECONDS Partial Thromboplastin Ratio 1.6 Sodium Level 134 mmol/L Potassium Level 4.7 mmol/L Chloride Level 99 mmol/L Carbon Dioxide Level 24 mmol/L Anion Gap 11.0 mmol/L Blood Urea Nitrogen 86 mg/dl Creatinine 4.39 mg/dl Est Creatinine Clear Calc Drug Dose 16.4 ml/min Estimated GFR () 14.5 Estimated GFR (Non- 12.5 BUN/Creatinine Ratio 19.6 Random Glucose 164 mg/dl Calcium Level 7.3 mg/dl Magnesium Level 2.3 mg/dl Total Bilirubin 0.7 mg/dl Direct Bilirubin 0.2 mg/dl Aspartate Amino Transf (AST/SGOT) 42 U/L Alanine Aminotransferase (ALT/SGPT) 16 U/L Alkaline Phosphatase 117 U/L Total Creatine Kinase 44 U/L Creatine Kinase MB 2.6 ng/ml Creatine Kinase MB Ratio 5.9 Total Protein 5.0 gm/dl Albumin 1.8 gm/dl Bedside Troponin I 0.030 ng/ml Bedside Glucose 179 mg/dl Lactate Dehydrogenase 321 U/L Test 10/12/17 18:34 10/12/17 20:29 10/12/17 21:55 10/13/17 00:09 Bedside Glucose 174 mg/dl 176 mg/dl 161 mg/dl Hemoglobin 6.9 g/dL Hematocrit 20.5 % Test 10/13/17 02:35 10/13/17 05:29 10/13/17 05:32 Stool Occult Blood POSITIVE White Blood Count 9.87 K/uL Red Blood Count 2.88 M/uL Hemoglobin 8.3 g/dL Hematocrit 25.3 % Mean Corpuscular Volume 87.8 fL Mean Corpuscular Hemoglobin 28.8 pg Mean Corpuscular Hemoglobin Concent 32.8 g/dl Platelet Count 154 K/uL Mean Platelet Volume 9.7 fL Neutrophils (%) (Auto) 68.2 % Lymphocytes (%) (Auto) 13.9 % Monocytes (%) (Auto) 9.4 % Eosinophils (%) (Auto) 6.4 % Basophils (%) (Auto) 1.0 % Neutrophils # (Auto) 6.73 K/uL Lymphocytes # (Auto) 1.37 K/uL Monocytes # (Auto) 0.93 K/uL Eosinophils # (Auto) 0.63 K/uL Basophils # (Auto) 0.10 K/uL RDW Standard Deviation 54.7 fL RDW Coefficient of Variation 19.7 % Immature Granulocyte % (Auto) 1.1 % Immature Granulocyte # (Auto) 0.11 K/uL Nucleated RBC Absolute Count (auto) 0.14 K/uL Nucleated Red Blood Cells % 1.4 % Polychromasia 1+ Anisocytosis PRESENT Prothrombin Time 16.2 SECONDS Prothromb Time International Ratio 1.6 Sodium Level 135 mmol/L Potassium Level 4.6 mmol/L Chloride Level 98 mmol/L Carbon Dioxide Level 26 mmol/L Anion Gap 11.0 mmol/L Blood Urea Nitrogen 94 mg/dl Creatinine 4.81 mg/dl Est Creatinine Clear Calc Drug Dose 14.8 ml/min Estimated GFR () 13.0 Estimated GFR (Non- 11.2 BUN/Creatinine Ratio 19.6 Random Glucose 113 mg/dl Estimated Average Glucose 108 mg/dl Hemoglobin A1c 5.4 % Calcium Level 7.5 mg/dl Phosphorus Level 3.1 mg/dl Magnesium Level 2.4 mg/dl Total Bilirubin 1.4 mg/dl Direct Bilirubin 0.6 mg/dl Aspartate Amino Transf (AST/SGOT) 52 U/L Alanine Aminotransferase (ALT/SGPT) 19 U/L Alkaline Phosphatase 142 U/L Total Protein 5.8 gm/dl Albumin 2.1 gm/dl Bedside Glucose 126 mg/dl Resident Tracking Resident Involvement: Resident Care Provided Care Provided: Adult [facility] Medicine
[2017-10-13 16:40] LABS: HEMATOCRIT 22.9 % (42-52); HEMOGLOBIN 7.7 g/dL (14.0-18.0)
[2017-10-13 17:15] LABS: PTT PATIENT 153.6 SECONDS (21.0-31.0)
[2017-10-13 18:26] LABS: PTT PATIENT 138.2 SECONDS (21.0-31.0)
[2017-10-13 19:55] LABS: PTT PATIENT 75.1 SECONDS (21.0-31.0)
--- NOTE | 2017-10-13 21:03 | Progress Note ---
Medicine Progress Note Date & Time of Visit: Oct 13, 2017 at 19:00 . Subjective CC: Follow-up visit for multiple problems. HPI: Transferred from [facility] yesterday with severe anemia and other problems. Hbg was 5.3. INR was 3.9 on warfarin. Received vitamin K and 3 units pRBC's. On IV heparin in light of mechanical heart valves. Seen by GI this morning; upper and lower endoscopies anticipated once medically stable. Denies chest pain, SOB. No nausea or vomiting. Nursing reports loose dark stools. ROS: as noted above in HPI . Objective Last 8 Hrs Date Time Temp Pulse Resp B/P (MAP) Pulse Ox O2 Delivery O2 Flow Rate FiO2 10/13/17 18:02 84 16 118/63 (81) 98 Room Air 10/13/17 16:14 75 16 104/63 (77) 96 Room Air 10/13/17 16:00 Room Air 10/13/17 14:37 36.4 75 122/51 (74) 10/13/17 14:35 75 122/51 10/13/17 14:15 78 112/48 10/13/17 14:09 76 16 111/52 (71) 99 Room Air 10/13/17 14:00 72 111/52 10/13/17 13:45 77 107/40 10/13/17 13:31 82 112/47 10/13/17 13:15 68 91/40 Physical Exam: General- lying in bed; appears to be chronically ill; no acute distress Eyes- anicteric ENT- NGT Lungs- clear to auscultation; no respiratory distress Cardiovascular- irregular; mechanical valve sounds; + JVD; 1+ pretibial edema Abdomen- + BS, soft, slightly distended, nontender Extremities- no cyanosis Neuro- alert Skin- warm & dry . Laboratory Results: Last 24 Hours Test 10/12/17 21:55 10/13/17 00:00 10/13/17 00:09 10/13/17 02:35 Hemoglobin 6.9 g/dL Hematocrit 20.5 % Bedside Glucose 161 mg/dl Stool Occult Blood POSITIVE Test 10/13/17 05:29 10/13/17 05:32 10/13/17 09:22 10/13/17 10:13 White Blood Count 9.87 K/uL 8.40 K/uL Red Blood Count 2.88 M/uL 2.65 M/uL Hemoglobin 8.3 g/dL 7.7 g/dL Hematocrit 25.3 % 23.3 % Mean Corpuscular Volume 87.8 fL 87.9 fL Mean Corpuscular Hemoglobin 28.8 pg 29.1 pg Mean Corpuscular Hemoglobin Concent 32.8 g/dl 33.0 g/dl Platelet Count 154 K/uL 157 K/uL Mean Platelet Volume 9.7 fL 10.5 fL Neutrophils (%) (Auto) 68.2 % 69.2 % Lymphocytes (%) (Auto) 13.9 % 15.4 % Monocytes (%) (Auto) 9.4 % 8.2 % Eosinophils (%) (Auto) 6.4 % 5.6 % Basophils (%) (Auto) 1.0 % 0.6 % Neutrophils # (Auto) 6.73 K/uL 5.82 K/uL Lymphocytes # (Auto) 1.37 K/uL 1.29 K/uL Monocytes # (Auto) 0.93 K/uL 0.69 K/uL Eosinophils # (Auto) 0.63 K/uL 0.47 K/uL Basophils # (Auto) 0.10 K/uL 0.05 K/uL RDW Standard Deviation 54.7 fL 56.1 fL RDW Coefficient of Variation 19.7 % 20.4 % Immature Granulocyte % (Auto) 1.1 % 1.0 % Immature Granulocyte # (Auto) 0.11 K/uL 0.08 K/uL Nucleated RBC Absolute Count (auto) 0.14 K/uL 0.13 K/uL Nucleated Red Blood Cells % 1.4 % 1.5 % Polychromasia 1+ 1+ Anisocytosis PRESENT PRESENT Prothrombin Time 16.2 SECONDS 15.2 SECONDS Prothromb Time International Ratio 1.6 1.5 Sodium Level 135 mmol/L Potassium Level 4.6 mmol/L Chloride Level 98 mmol/L Carbon Dioxide Level 26 mmol/L Anion Gap 11.0 mmol/L Blood Urea Nitrogen 94 mg/dl Creatinine 4.81 mg/dl Est Creatinine Clear Calc Drug Dose 14.8 ml/min Estimated GFR () 13.0 Estimated GFR (Non- 11.2 BUN/Creatinine Ratio 19.6 Random Glucose 113 mg/dl Estimated Average Glucose 108 mg/dl Hemoglobin A1c 5.4 % Calcium Level 7.5 mg/dl Phosphorus Level 3.1 mg/dl Magnesium Level 2.4 mg/dl Total Bilirubin 1.4 mg/dl Direct Bilirubin 0.6 mg/dl Aspartate Amino Transf (AST/SGOT) 52 U/L Alanine Aminotransferase (ALT/SGPT) 19 U/L Alkaline Phosphatase 142 U/L Total Protein 5.8 gm/dl Albumin 2.1 gm/dl Bedside Glucose 126 mg/dl Activated Partial Thromboplast Time 30.4 SECONDS Partial Thromboplastin Ratio 1.2 Troponin I 0.034 ng/ml Hepatitis B Surface Antigen NEG Hepatitis B Surface Antibody NEG Test 10/13/17 11:40 10/13/17 16:26 10/13/17 16:35 10/13/17 17:49 Bedside Glucose 130 mg/dl 130 mg/dl Hemoglobin 7.7 g/dL Hematocrit 22.9 % Activated Partial Thromboplast Time 153.6 SECONDS 138.2 SECONDS Partial Thromboplastin Ratio 5.9 5.3 Test 10/13/17 19:26 Activated Partial Thromboplast Time 75.1 SECONDS Partial Thromboplastin Ratio 2.9 Assessment & Plan GI BLEED Recurrent GI bleed on anticoagulants. GI consulted. Receiving pantoprazole. Endoscopies anticipated when stable. ACUTE BLOOD LOSS ANEMIA Hgb 5.3 at time of admission. Acute blood loss anemia secondary to GI bleed. Received 3 units pRBC's. Hgb this morning 8.3. Follow H/H. Transfuse to maintain adequate H/H per guidelines. COAGULOPATHY INR 3.9 at time of admission. Due to warfarin therapy. Received vitamin K. CORONARY ARTERY DISEASE Aspirin on hold due to GI bleed. Continue metoprolol as hemodynamics allow. 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 No ALEXANDER or ARB due to CKD. Fluid management with hemodialysis. VALVULAR HEART DISEASE History of rheumatic heart disease, s/p aortic and mitral mechanical valve replacements. Best to maintain anticoagulation to avoid cardioembolic event. ATRIAL FIBRILLATION Rate controlled. Continue metoprolol as hemodynamics allow. Anticoagulation as discussed above. HYPERTENSION BP low at times due to GI bleeding. Follow hemodynamics and titrate Rx. CKD V Hemodialysis under direction of Nephrology. DM TYPE 2 Well-controlled. Hgb A1C 5.4. Lantus / NovoLog per protocol. DYSLIPIDEMIA Continue atorvastatin. HYPOTHYROIDISM Continue levothyroxine. VTE PROPHYLAXIS SCD's. Anticoagulant management as discussed above. Ambulate when able. DISPOSITION To be determined. . Consultants: [facility] Neph[facility] . Current Inpatient Medications: Current Inpatient Medications Medications (Trade) Dose Ordered Sig/Britton Route Start Time Stop Time Status Last Admin Dose Admin Acetaminophen (Tylenol Tab) 650 mg Q4H PRN PO 10/12/17 14:00 11/11/17 13:59 Nitroglycerin (Nitrostat Tab) 0.4 mg UD PRN SL 10/12/17 14:00 11/11/17 13:59 Morphine Sulfate (MoRPHine SULFATE INJ) 2 mg Q2H PRN IV 10/12/17 14:00 10/26/17 13:59 Miscellaneous Information (Icu Protocol For Hyperglycemia) 1 ea PRN PRN N/A 10/12/17 14:00 10/14/17 13:59 Atorvastatin Calcium (Lipitor Tab) 40 mg DAILY PO 10/13/17 09:00 11/12/17 08:59 Docusate Sodium (coLACE CAP) 100 mg BID PRN PO 10/12/17 14:00 11/11/17 13:59 Levothyroxine Sodium (Synthroid Tab) 75 mcg DAILYBB PO 10/13/17 06:00 11/12/17 06:59 10/13/17 05:30 75 MCG Metoprolol Succinate (Toprol Xl Tab) 25 mg DAILY PO 10/13/17 09:00 11/12/17 08:59 Future Hold Multivitamins/ Minerals (Multivitamin W/ Minerals Tab) 1 tab DAILY PO 10/13/17 09:00 11/12/17 08:59 Insulin Glargine (Lantus Solostar Pen) 5 units BID SC 10/12/17 21:00 11/11/17 20:59 Future hold 10/12/17 21:08 5 UNITS Insulin Aspart (novoLOG ASPART) SLIDING SCALE G... Q6 SC 10/12/17 18:00 11/11/17 17:59 Pantoprazole Sodium 40 mg/ Dextrose 100 ml @ 20 mls/hr Q5H IV 10/12/17 16:00 11/11/17 15:59 10/13/17 16:36 20 MLS/HR Ondansetron HCl (Zofran Inj) 4 mg Q4H PRN IV 10/12/17 20:45 11/11/17 20:44 Metoprolol Tartrate (Lopressor Iv) 2.5 mg Q6 IV. 10/13/17 09:00 11/12/17 08:59 Epoetin Peter (Procrit Inj) 10,000 units TODAY@0630 IV. 10/13/17 06:30 10/13/17 23:59 Heparin Sodium/ Dextrose 500 ml @ 13 mls/hr Q24H PRN IV 10/13/17 08:45 11/12/17 08:44 10/13/17 10:12 18 MLS/HR
[2017-10-13] MEDS: INSULIN GLARGINE SOLOSTAR 100 UNITS/ML 3 ML PEN SC SCH (21:21)
[2017-10-13 22:53] LABS: HEMATOCRIT 19.2 % (42-52); HEMOGLOBIN 6.5 g/dL (14.0-18.0)
[2017-10-14] VITALS (42 sets, daily range): BP systolic 106–144; BP diastolic 42–93; PULSE 61–119; TEMP 36.3–37; O2SAT 92–100
[2017-10-14] MEDS ORDERED: CHLORASEPTIC 1.4% SOLN 180 ML BTL MT PRN (00:30)
[2017-10-14] MEDS: PANTOprazole INJ 40 MG in DEXTROSE 5% 100ML IV SCH ×5 (02:22→20:17)
[2017-10-14 03:30] LABS: BASO % 0.8 %; BASO ABS # 0.07 K/uL (0-0.2); EOS % 6.4 %; EOS ABS # 0.54 K/uL (0-0.5); HEMATOCRIT 21.4 % (42-52); HEMOGLOBIN 7.1 g/dL (14.0-18.0); IG# 0.06 K/uL (0.00-0.02); LYMPH % 10.4 %; LYMPH ABS # 0.87 K/uL (1.2-3.4); MEAN CELL VOLUME 89.2 fL (80-100); MEAN CORPUSCULAR HEMOGLOBIN 29.6 pg (25-34); MEAN CORPUSCULAR HGB CONC 33.2 g/dl (32-36); MEAN PLATELET VOLUME 10.5 fL (7.4-10.4); MONO % 12.1 %; MONO ABS # 1.02 K/uL (0.11-0.59); NEUT % 69.6 %; NEUT ABS # 5.84 K/uL (1.4-6.5); NUCLEATED RED BLOOD CELL ABS 0.05 K/uL (0-0); PLATELET COUNT 121 K/uL (130-400); RED CELL DISTRIBUTION WIDTH CV 19.9 % (11.5-14.5); RED CELL DISTRIBUTION WIDTH SD 53.6 fL (36.4-46.3)
[2017-10-14 03:55] LABS: INR 1.5 (0.9-1.1)
[2017-10-14 04:01] LABS: ALBUMIN 1.7 gm/dl (3.4-5.0); CREATININE 3.33 mg/dl (0.60-1.40); PHOSPHORUS 3.1 mg/dl (2.5-4.9); POTASSIUM 3.6 mmol/L (3.5-5.1); TOTAL PROTEIN 4.8 gm/dl (6.4-8.2)
[2017-10-14] MEDS: METOPROLOL TARTRATE 1 MG/ML VIAL IV. SCH ×4 (05:47→23:18)
[2017-10-14] MEDS: INSULIN ASPART 100 UNITS/ML 3 ML PEN SC SCH ×4 (05:48→20:17)
[2017-10-14] MEDS: LEVOTHYROXINE 75 MCG TAB PO SCH (06:47)
--- NOTE | 2017-10-14 07:41 | DIAGNOSTIC IMAGING REPORT ---
SINGLE VIEW CHEST CLINICAL HISTORY: CHF. FINDINGS: An AP, portable, upright chest radiograph is compared to study dated 10/13/2017. The examination is degraded by portable technique and patient rotation. A right subclavian central venous catheter is unchanged in position. An enteric tube is again noted. The patient is status post midline sternotomy and cardiac valve surgery. The heart is enlarged and there is atherosclerotic calcification of the thoracic aorta. Pulmonary vessel congestion and interstitial edema has worsened from yesterday. There are small pleural effusions with bibasilar atelectasis. No pneumothorax is seen. The skeletal structures are osteopenic. The bony thorax is grossly intact. IMPRESSION: 1. Cardiomegaly with evidence of congestive failure and interstitial edema. This has worsened from yesterday. 2. Small pleural effusions with bibasilar atelectasis. Electronically signed by: Prince Murray M.D. 10/14/2017 7:40 AM Dictated Date/Time: 10/14/2017 7:39 AM
[2017-10-14] MEDS: INSULIN GLARGINE SOLOSTAR 100 UNITS/ML 3 ML PEN SC SCH ×2 (09:08→20:19)
--- NOTE | 2017-10-14 09:36 | Progress Note ---
Medicine Progress Note Date & Time of Visit: Oct 14, 2017 at 09:00 . Subjective CC: Follow-up visit for multiple problems. HPI: Received 2 more units pRBC's last night. Hemodynamically stable. Melena improved per nursing staff. No nausea or vomiting. ROS: General- no fever Resp- no cough; no shortness of breath Cardiac- no chest pain, no edema GI- as noted above in HPI - [place] cath . Objective Last 8 Hrs Date Time Temp Pulse Resp B/P (MAP) Pulse Ox O2 Delivery O2 Flow Rate FiO2 10/14/17 07:30 36.7 81 18 144/83 (103) 97 Room Air 10/14/17 07:30 Room Air 10/14/17 06:00 36.7 78 18 132/52 96 10/14/17 05:01 72 25 138/54 (82) 97 10/14/17 05:00 36.7 80 24 129/52 96 10/14/17 04:46 80 28 129/52 (77) 96 10/14/17 04:45 36.5 78 24 138/54 98 10/14/17 04:30 37.0 76 22 116/42 98 10/14/17 04:02 71 18 116/42 (66) 98 10/14/17 04:00 98 Room Air 10/14/17 03:01 74 17 106/50 (68) 97 10/14/17 02:01 74 15 124/42 (69) 95 10/14/17 02:00 36.5 72 19 124/42 99 Physical Exam: General- lying in bed;no acute distress Eyes- anicteric ENT- NGT removed Lungs- bibasilar rales; no respiratory distress Cardiovascular- irregular; mechanical valve sounds; + JVD; trace pretibial edema Abdomen- + BS, soft, slightly distended, nontender Extremities- no cyanosis; SCD's applied Neuro- alert, mild confusion Skin- warm & dry . Laboratory Results: Last 24 Hours Test 10/13/17 09:22 10/13/17 10:13 10/13/17 11:40 10/13/17 16:26 Prothrombin Time 15.2 SECONDS Prothromb Time International Ratio 1.5 Activated Partial Thromboplast Time 30.4 SECONDS 153.6 SECONDS Partial Thromboplastin Ratio 1.2 5.9 Troponin I 0.034 ng/ml Hepatitis B Surface Antigen NEG Hepatitis B Surface Antibody NEG Hepatitis B Core Total Antibody NON-REACTIVE White Blood Count 8.40 K/uL Red Blood Count 2.65 M/uL Hemoglobin 7.7 g/dL 7.7 g/dL Hematocrit 23.3 % 22.9 % Mean Corpuscular Volume 87.9 fL Mean Corpuscular Hemoglobin 29.1 pg Mean Corpuscular Hemoglobin Concent 33.0 g/dl Platelet Count 157 K/uL Mean Platelet Volume 10.5 fL Neutrophils (%) (Auto) 69.2 % Lymphocytes (%) (Auto) 15.4 % Monocytes (%) (Auto) 8.2 % Eosinophils (%) (Auto) 5.6 % Basophils (%) (Auto) 0.6 % Neutrophils # (Auto) 5.82 K/uL Lymphocytes # (Auto) 1.29 K/uL Monocytes # (Auto) 0.69 K/uL Eosinophils # (Auto) 0.47 K/uL Basophils # (Auto) 0.05 K/uL RDW Standard Deviation 56.1 fL RDW Coefficient of Variation 20.4 % Immature Granulocyte % (Auto) 1.0 % Immature Granulocyte # (Auto) 0.08 K/uL Nucleated RBC Absolute Count (auto) 0.13 K/uL Nucleated Red Blood Cells % 1.5 % Polychromasia 1+ Anisocytosis PRESENT Bedside Glucose 130 mg/dl Test 10/13/17 16:35 10/13/17 17:49 10/13/17 19:26 10/13/17 21:19 Bedside Glucose 130 mg/dl 199 mg/dl Activated Partial Thromboplast Time 138.2 SECONDS 75.1 SECONDS Partial Thromboplastin Ratio 5.3 2.9 Test 10/13/17 21:57 10/13/17 23:28 10/14/17 03:06 Hemoglobin 6.5 g/dL 7.1 g/dL Hematocrit 19.2 % 21.4 % Bedside Glucose 167 mg/dl White Blood Count 8.40 K/uL Red Blood Count 2.40 M/uL Mean Corpuscular Volume 89.2 fL Mean Corpuscular Hemoglobin 29.6 pg Mean Corpuscular Hemoglobin Concent 33.2 g/dl Platelet Count 121 K/uL Mean Platelet Volume 10.5 fL Neutrophils (%) (Auto) 69.6 % Lymphocytes (%) (Auto) 10.4 % Monocytes (%) (Auto) 12.1 % Eosinophils (%) (Auto) 6.4 % Basophils (%) (Auto) 0.8 % Neutrophils # (Auto) 5.84 K/uL Lymphocytes # (Auto) 0.87 K/uL Monocytes # (Auto) 1.02 K/uL Eosinophils # (Auto) 0.54 K/uL Basophils # (Auto) 0.07 K/uL RDW Standard Deviation 53.6 fL RDW Coefficient of Variation 19.9 % Immature Granulocyte % (Auto) 0.7 % Immature Granulocyte # (Auto) 0.06 K/uL Nucleated RBC Absolute Count (auto) 0.05 K/uL Nucleated Red Blood Cells % 0.6 % Hypochromasia PRESENT Anisocytosis PRESENT Prothrombin Time 15.2 SECONDS Prothromb Time International Ratio 1.5 Activated Partial Thromboplast Time 77.0 SECONDS Partial Thromboplastin Ratio 3.0 Sodium Level 135 mmol/L Potassium Level 3.6 mmol/L Chloride Level 99 mmol/L Carbon Dioxide Level 30 mmol/L Anion Gap 6.0 mmol/L Blood Urea Nitrogen 60 mg/dl Creatinine 3.33 mg/dl Est Creatinine Clear Calc Drug Dose 21.2 ml/min Estimated GFR () 20.3 Estimated GFR (Non- 17.5 BUN/Creatinine Ratio 18.1 Random Glucose 140 mg/dl Calcium Level 7.0 mg/dl Phosphorus Level 3.1 mg/dl Magnesium Level 2.1 mg/dl Total Bilirubin 1.0 mg/dl Direct Bilirubin 0.4 mg/dl Aspartate Amino Transf (AST/SGOT) 40 U/L Alanine Aminotransferase (ALT/SGPT) 15 U/L Alkaline Phosphatase 118 U/L Total Protein 4.8 gm/dl Albumin 1.7 gm/dl Diagnostic Imaging: SINGLE VIEW CHEST FINDINGS: An AP, portable, upright chest radiograph is compared to study dated 10/13/2017. The examination is degraded by portable technique and patient rotation. A right subclavian central venous catheter is unchanged in position. An enteric tube is again noted. The patient is status post midline sternotomy and cardiac valve surgery. The heart is enlarged and there is atherosclerotic calcification of the thoracic aorta. Pulmonary vessel congestion and interstitial edema has worsened from yesterday. There are small pleural effusions with bibasilar atelectasis. No pneumothorax is seen. The skeletal structures are osteopenic. The bony thorax is grossly intact. IMPRESSION: 1. Cardiomegaly with evidence of congestive failure and interstitial edema. This has worsened from yesterday. 2. Small pleural effusions with bibasilar atelectasis. Electronically signed by: Prince Murray M.D. 10/14/2017 7:40 AM Dictated Date/Time: 10/14/2017 7:39 AM . Assessment & Plan GI BLEED Recurrent GI bleed on anticoagulants. GI consulted. Receiving pantoprazole. Endoscopies anticipated when stable. ACUTE BLOOD LOSS ANEMIA Hgb 5.3 at time of admission. Acute blood loss anemia secondary to GI bleed. Received 2 more units pRBC's last night (total of 5 units so far). Hgb this morning 7.1. Follow H/H. Transfuse to maintain adequate H/H per guidelines. COAGULOPATHY INR 3.9 at time of admission. Due to warfarin therapy. Received vitamin K. INR this morning 1.5. CORONARY ARTERY DISEASE Aspirin on hold due to GI bleed. Continue metoprolol as hemodynamics allow. CHF Chest x-ray shows pulmonary edema. 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 No ALEXANDER or ARB due to CKD. Fluid management with hemodialysis. VALVULAR HEART DISEASE History of rheumatic heart disease, s/p aortic and mitral mechanical valve replacements. Best to maintain anticoagulation if possible to avoid cardioembolic event. ATRIAL FIBRILLATION Rate controlled. Continue metoprolol as hemodynamics allow. Anticoagulation as discussed above. HYPERTENSION BP low at times due to GI bleeding. Follow hemodynamics and titrate Rx. CKD V Hemodialysis under direction of Nephrology. CIRRHOSIS Noted on recent imaging. Etiology uncertain. Will need f/u with GI. DM TYPE 2 Well-controlled. Hgb A1C 5.4. Lantus / NovoLog per protocol. Serum glucose this morning 140. DYSLIPIDEMIA Continue atorvastatin. HYPOTHYROIDISM Continue levothyroxine. VTE PROPHYLAXIS SCD's. Anticoagulant management as discussed above. Ambulate when able. DISPOSITION Patient is well known [facility] and was last hospitalized there - 10/11/17. His medical problems are complex and he may be best served returning there for tertiary care services; may need advanced endoscopic procedures or interventional radiology services not available at this facility. Spoke with patient and his brother Mr. Rolan Wilder. They would like to return to [facility]. Contacted [facility] Transfer [facility]. Dr. Recinos (Hospital Medicine) accepted patient to their Special Care Unit. No beds available at this time; they will call back when one is available. . Consultants: [facility] . Current Inpatient Medications: Current Inpatient Medications Medications (Trade) Dose Ordered Sig/Britton Route Start Time Stop Time Status Last Admin Dose Admin Acetaminophen (Tylenol Tab) 650 mg Q4H PRN PO 10/12/17 14:00 11/11/17 13:59 Nitroglycerin (Nitrostat Tab) 0.4 mg UD PRN SL 10/12/17 14:00 11/11/17 13:59 Morphine Sulfate (MoRPHine SULFATE INJ) 2 mg Q2H PRN IV 10/12/17 14:00 10/26/17 13:59 Miscellaneous Information (Icu Protocol For Hyperglycemia) 1 ea PRN PRN N/A 10/12/17 14:00 10/14/17 13:59 Atorvastatin Calcium (Lipitor Tab) 40 mg DAILY PO 10/13/17 09:00 11/12/17 08:59 Docusate Sodium (coLACE CAP) 100 mg BID PRN PO 10/12/17 14:00 11/11/17 13:59 Levothyroxine Sodium (Synthroid Tab) 75 mcg DAILYBB PO 10/13/17 06:00 11/12/17 06:59 10/14/17 06:47 75 MCG Metoprolol Succinate (Toprol Xl Tab) 25 mg DAILY PO 10/13/17 09:00 11/12/17 08:59 Future Hold Multivitamins/ Minerals (Multivitamin W/ Minerals Tab) 1 tab DAILY PO 10/13/17 09:00 11/12/17 08:59 Insulin Glargine (Lantus Solostar Pen) 5 units BID SC 10/12/17 21:00 11/11/17 20:59 Future hold 10/14/17 09:08 5 UNITS Insulin Aspart (novoLOG ASPART) SLIDING SCALE G... Q6 SC 10/12/17 18:00 11/11/17 17:59 Pantoprazole Sodium 40 mg/ Dextrose 100 ml @ 20 mls/hr Q5H IV 10/12/17 16:00 11/11/17 15:59 10/14/17 08:11 20 MLS/HR Ondansetron HCl (Zofran Inj) 4 mg Q4H PRN IV 10/12/17 20:45 11/11/17 20:44 Metoprolol Tartrate (Lopressor Iv) 2.5 mg Q6 IV. 10/13/17 09:00 11/12/17 08:59 Heparin Sodium/ Dextrose 500 ml @ 10 mls/hr Q24H PRN IV 10/13/17 08:45 11/12/17 08:44 10/13/17 21:16 13 MLS/HR Phenol (Chloraseptic 1.4% [place]) 1 sprays Q2H PRN MT 10/14/17 00:30 11/13/17 00:29
[2017-10-14] MEDS: ATORVASTATIN 40 MG TAB PO SCH (10:00)
[2017-10-14] MEDS: CEROVITE ADV FORMULA TAB PO SCH (10:00)
--- NOTE | 2017-10-14 10:04 | Critical Care Progress Note ---
Critical Care Progress Note Date of Service Oct 14, 2017. ICU Day ICU Day Number: [address] Subjective Patient reports he is feeling much better. Feels more alert, is not short of breath, and has no abdominal pain. Still reports weakness and painful backside. Objective GENERAL: Awake, alert, pale, in no distress, NGT in situ HENT: Normocephalic, atraumatic. Oropharynx unremarkable. EYES: Normal conjunctiva. Sclera non-icteric. NECK: Supple. No nuchal rigidity. FROM. No JVD. RESPIRATORY: Clear to auscultation. CARDIAC: Irregularly irregular. Extremities warm and well perfused. ABDOMEN: Soft, non-distended. No tenderness to palpation. No rebound or guarding. No masses. MUSCULOSKELETAL: Chest examination reveals no tenderness. Patient has multiple wounds on right buttocks, right calf LOWER EXTREMITIES: Calves are equal size bilaterally and non-tender. No edema. No discoloration. SKIN: No rash or jaundice noted. Multiple scratches and bruises on all extremities. MARYSOL per GI showed normal green stool. Assessment & Plan 72 yo male significant PMH admitted for elevated INR and Hgb of 5.3. Transfused 3 units blood in house with Hb increase to 7.7. Heparin started and Hb decreased to 6.5. 4th unit of blood transfused overnight. Awaiting AM labs. LEAD MAN OVER ALL DIES IN PATTERN SHOP - Patient alert and oriented to self and place but not time, monitor mental status - CT head negative CV - Continue atorvastatin 40, toprol xl 25 converted to metoprolol tartrate 2.5 q6h IV, nitro prn - Clear liquid diet - Recent echo at [facility] EF 50% - Imperative that patient started on anticoagulation due to mechanical heart valves. Restarted on low dose heparin at 1030 yesterday AM. - Trop 0.03 on admission. Repeat this AM 0.034. Unlikely related to cardiac ischemia. - CXR shows pulmonary HTN - VSS, but has occasional episodes of asymptomatic bradycardia. Hx of SSS but no pacemaker. Resp - CXR showed atelectasis/airspace opacities at left base and bilateral pleural effusions - VSS, Ox sat 99 on RA - Continue to monitor GI -Zofran 4 units prn for nausea -Pantoprazole IV -GI consulted, dark brown stool on rectal exam, bowel prep overnight, NPO from midnight for possible scope today -Hx of cirrhosis, unknown etiology: RUQ US 1/5/18: Cirrhotic morphology of the liver without gross mass identified. Moderate ascites with a site marked in the left lower quadrant for paracentesis. Right pleural effusion. -FOB positive, Hep B negative thus far -Consider scanning, with or without contrast, d/w nephrology -DC NGT Nephro - Na 135, K 3.6, BUN 60, Cr 3.33 - CKD stage IV; last dialysis 09/22/17. Per family, he had not required dialysis prior to last hospital admission, and was told he would need it 3x/ week. Unsure if he gets IV iron/EPO. - Awaiting records - Dialysis yesterday per Dr. Holland with 1L removal. Continue to monitor Phos level. - Watch cath site. yellowed purulent lesions surrounding access site. continue to monitor Endo -Continue levythyroxine for hypothyroidism -ISS -Glucose levels running 120-130 ID Afebrile, normal WBC Treated for cellulitis on posterior legs at previous hospital with vanc/zosyn Consider blood cx Wound culture sent Heme: -Multifactorial anemia: ?chronic disease, ?acute blood loss -has received 5 units, 2 units overnight as levels dropped to 6.5, 7.1 -Platelets 154; WBC normal at 9.87 -Given 2.5 vit K in ED, no obvious source of bleeding -FOB positive -INR 1.6; started on low dose heparin yesterday -Fibrinogen level sent Resident Physician Supervision Note: Dr. Armstrong was resident physician during care of patient. I separately evaluated patient and did history and exam. I discussed the case with the resident and generally agree with the findings and plan. Patient requires anticoagulation due to mechanical heart valves, he continues to have a blood loss anemia. Discussed the case with Dr. Figueroa and patient would be best assisted at [facility]. He is slated for transfer to [facility]. The continue to monitor his hemoglobin and hematocrit and transfuse as necessary. Patient critically ill due to continuing blood loss anemia. I have personally spent 35 minutes of critical care time in the direct management of this patient. This is a life/limb threatening event. This includes time spent evaluating patient, direct bedside care, chart review, placing orders, interpretation of diagnostic studies, discussion with consultants, patient, and family members, as well as other required patient management activities. This time is exclusive of all separately billable procedures, and teaching time and separate from and in addition to any other critical care service time. Documented By: Ananda Way DO Consults & Procedures Consultants: Nephrology: Dr. Holland Gastro: Dr. Abrams Wound care Procedures: 10/12/17: NGT placement for bowel prep Data Medications: Current Inpatient Medications Medications (Trade) Dose Ordered Sig/Britton Route Start Time Stop Time Status Last Admin Dose Admin Acetaminophen (Tylenol Tab) 650 mg Q4H PRN PO 10/12/17 14:00 11/11/17 13:59 Nitroglycerin (Nitrostat Tab) 0.4 mg UD PRN SL 10/12/17 14:00 11/11/17 13:59 Morphine Sulfate (MoRPHine SULFATE INJ) 2 mg Q2H PRN IV 10/12/17 14:00 10/26/17 13:59 Miscellaneous Information (Icu Protocol For Hyperglycemia) 1 ea PRN PRN N/A 10/12/17 14:00 10/14/17 13:59 Atorvastatin Calcium (Lipitor Tab) 40 mg DAILY PO 10/13/17 09:00 11/12/17 08:59 Docusate Sodium (coLACE CAP) 100 mg BID PRN PO 10/12/17 14:00 11/11/17 13:59 Levothyroxine Sodium (Synthroid Tab) 75 mcg DAILYBB PO 10/13/17 06:00 11/12/17 06:59 10/13/17 05:30 75 MCG Metoprolol Succinate (Toprol Xl Tab) 25 mg DAILY PO 10/13/17 09:00 11/12/17 08:59 Future Hold Multivitamins/ Minerals (Multivitamin W/ Minerals Tab) 1 tab DAILY PO 10/13/17 09:00 11/12/17 08:59 Insulin Glargine (Lantus Solostar Pen) 5 units BID SC 10/12/17 21:00 11/11/17 20:59 Future hold 10/13/17 21:21 5 UNITS Insulin Aspart (novoLOG ASPART) SLIDING SCALE G... Q6 SC 10/12/17 18:00 11/11/17 17:59 Pantoprazole Sodium 40 mg/ Dextrose 100 ml @ 20 mls/hr Q5H IV 10/12/17 16:00 11/11/17 15:59 10/13/17 21:15 20 MLS/HR Ondansetron HCl (Zofran Inj) 4 mg Q4H PRN IV 10/12/17 20:45 11/11/17 20:44 Metoprolol Tartrate (Lopressor Iv) 2.5 mg Q6 IV. 10/13/17 09:00 11/12/17 08:59 Heparin Sodium/ Dextrose 500 ml @ 13 mls/hr Q24H PRN IV 10/13/17 08:45 11/12/17 08:44 10/13/17 21:16 13 MLS/HR Phenol (Chloraseptic 1.4% Imperial) 1 sprays Q2H PRN MT 10/14/17 00:30 11/13/17 00:29 I & O: 10/13/17 10/14/17 10/15/17 07:59 07:59 07:59 Intake Total 4955 ml 370 ml Output Total 900 ml Balance 4955 ml -530 ml Vital Signs: Date Time Temp Pulse Resp B/P (MAP) Pulse Ox O2 Delivery O2 Flow Rate FiO2 10/14/17 01:01 67 21 125/52 (76) 98 10/14/17 01:00 36.4 67 21 125/52 98 10/14/17 00:01 36.4 78 18 126/49 99 10/14/17 00:00 36.5 70 21 126/49 (74) 97 10/13/17 23:30 36.5 73 20 109/47 99 10/13/17 23:10 36.4 69 25 110/49 99 10/13/17 22:01 73 22 111/53 (72) 97 Room Air 10/13/17 21:01 75 21 123/71 (88) 98 Room Air 10/13/17 20:02 37.1 69 22 102/44 (63) 98 Room Air 10/13/17 20:00 98 Room Air 10/13/17 18:02 84 16 118/63 (81) 98 Room Air 10/13/17 16:14 75 16 104/63 (77) 96 Room Air 10/13/17 16:00 Room Air 10/13/17 14:37 36.4 75 122/51 (74) 10/13/17 14:35 75 122/51 10/13/17 14:15 78 112/48 10/13/17 14:09 76 16 111/52 (71) 99 Room Air 10/13/17 14:00 72 111/52 10/13/17 13:45 77 107/40 10/13/17 13:31 82 112/47 10/13/17 13:15 68 91/40 10/13/17 13:00 86 112/43 10/13/17 12:45 71 100/55 10/13/17 12:30 84 101/45 10/13/17 12:15 67 100/46 10/13/17 12:01 72 18 94/36 (55) 97 Room Air 10/13/17 12:00 Room Air 10/13/17 12:00 65 94/36 10/13/17 11:45 72 107/56 10/13/17 11:30 59 123/48 10/13/17 11:20 36.5 60 128/67 (87) 10/13/17 10:18 36.3 69 18 123/46 (71) 99 Room Air 10/13/17 08:00 Room Air 10/13/17 08:00 61 18 136/45 (75) 99 Room Air 10/13/17 08:00 Room Air 10/13/17 06:01 63 21 124/51 (75) 100 Room Air 10/13/17 04:11 86 24 124/74 (91) 99 Room Air 10/13/17 04:00 100 Room Air 10/13/17 03:00 36.7 65 20 115/42 (66) 99 Room Air Laboratory Results: Last 24 Hours Test 10/13/17 02:35 10/13/17 05:29 10/13/17 05:32 10/13/17 09:22 Stool Occult Blood POSITIVE White Blood Count 9.87 K/uL Red Blood Count 2.88 M/uL Hemoglobin 8.3 g/dL Hematocrit 25.3 % Mean Corpuscular Volume 87.8 fL Mean Corpuscular Hemoglobin 28.8 pg Mean Corpuscular Hemoglobin Concent 32.8 g/dl Platelet Count 154 K/uL Mean Platelet Volume 9.7 fL Neutrophils (%) (Auto) 68.2 % Lymphocytes (%) (Auto) 13.9 % Monocytes (%) (Auto) 9.4 % Eosinophils (%) (Auto) 6.4 % Basophils (%) (Auto) 1.0 % Neutrophils # (Auto) 6.73 K/uL Lymphocytes # (Auto) 1.37 K/uL Monocytes # (Auto) 0.93 K/uL Eosinophils # (Auto) 0.63 K/uL Basophils # (Auto) 0.10 K/uL RDW Standard Deviation 54.7 fL RDW Coefficient of Variation 19.7 % Immature Granulocyte % (Auto) 1.1 % Immature Granulocyte # (Auto) 0.11 K/uL Nucleated RBC Absolute Count (auto) 0.14 K/uL Nucleated Red Blood Cells % 1.4 % Polychromasia 1+ Anisocytosis PRESENT Prothrombin Time 16.2 SECONDS 15.2 SECONDS Prothromb Time International Ratio 1.6 1.5 Sodium Level 135 mmol/L Potassium Level 4.6 mmol/L Chloride Level 98 mmol/L Carbon Dioxide Level 26 mmol/L Anion Gap 11.0 mmol/L Blood Urea Nitrogen 94 mg/dl Creatinine 4.81 mg/dl Est Creatinine Clear Calc Drug Dose 14.8 ml/min Estimated GFR () 13.0 Estimated GFR (Non- 11.2 BUN/Creatinine Ratio 19.6 Random Glucose 113 mg/dl Estimated Average Glucose 108 mg/dl Hemoglobin A1c 5.4 % Calcium Level 7.5 mg/dl Phosphorus Level 3.1 mg/dl Magnesium Level 2.4 mg/dl Total Bilirubin 1.4 mg/dl Direct Bilirubin 0.6 mg/dl Aspartate Amino Transf (AST/SGOT) 52 U/L Alanine Aminotransferase (ALT/SGPT) 19 U/L Alkaline Phosphatase 142 U/L Total Protein 5.8 gm/dl Albumin 2.1 gm/dl Bedside Glucose 126 mg/dl Activated Partial Thromboplast Time 30.4 SECONDS Partial Thromboplastin Ratio 1.2 Troponin I 0.034 ng/ml Hepatitis B Surface Antigen NEG Hepatitis B Surface Antibody NEG Test 10/13/17 10:13 10/13/17 11:40 10/13/17 16:26 10/13/17 16:35 White Blood Count 8.40 K/uL Red Blood Count 2.65 M/uL Hemoglobin 7.7 g/dL 7.7 g/dL Hematocrit 23.3 % 22.9 % Mean Corpuscular Volume 87.9 fL Mean Corpuscular Hemoglobin 29.1 pg Mean Corpuscular Hemoglobin Concent 33.0 g/dl Platelet Count 157 K/uL Mean Platelet Volume 10.5 fL Neutrophils (%) (Auto) 69.2 % Lymphocytes (%) (Auto) 15.4 % Monocytes (%) (Auto) 8.2 % Eosinophils (%) (Auto) 5.6 % Basophils (%) (Auto) 0.6 % Neutrophils # (Auto) 5.82 K/uL Lymphocytes # (Auto) 1.29 K/uL Monocytes # (Auto) 0.69 K/uL Eosinophils # (Auto) 0.47 K/uL Basophils # (Auto) 0.05 K/uL RDW Standard Deviation 56.1 fL RDW Coefficient of Variation 20.4 % Immature Granulocyte % (Auto) 1.0 % Immature Granulocyte # (Auto) 0.08 K/uL Nucleated RBC Absolute Count (auto) 0.13 K/uL Nucleated Red Blood Cells % 1.5 % Polychromasia 1+ Anisocytosis PRESENT Bedside Glucose 130 mg/dl 130 mg/dl Activated Partial Thromboplast Time 153.6 SECONDS Partial Thromboplastin Ratio 5.9 Test 10/13/17 17:49 10/13/17 19:26 10/13/17 21:19 10/13/17 21:57 Activated Partial Thromboplast Time 138.2 SECONDS 75.1 SECONDS Partial Thromboplastin Ratio 5.3 2.9 Bedside Glucose 199 mg/dl Hemoglobin 6.5 g/dL Hematocrit 19.2 % Test 10/13/17 23:28 Bedside Glucose 167 mg/dl Resident Tracking Resident Involvement: Resident Care Provided Care Provided: Adult Hospital Medicine
--- NOTE | 2017-10-14 10:13 | Discharge Summary ---
Discharge Summary Date of Service Oct 14, 2017. Discharge Summary Admission Date: Oct 12, 2017 at 14:00 Discharge Date: Oct 15, 2017 Discharge Disposition: Acute care facility ([facility]) Principal Diagnosis: GI bleed with acute blood loss anemia OTHER ACUTE DIAGNOSES: coagulopathy secondary to warfarin acute on chronic left ventricular systolic and diastolic heart failure . Secondary Diagnoses/Problems: Chronic and Resolved Medical Problems: (1) Carotid arterial disease Status: Chronic (2) Cirrhosis of liver Status: Chronic (3) CKD (chronic kidney disease), stage V Status: Chronic (4) Coronary artery disease Status: Chronic (5) Diabetes mellitus, type 2 Status: Chronic (6) Diastolic CHF, chronic Status: Chronic (7) Dyslipidemia Status: Chronic (8) Hypertension Status: Chronic (9) Hypothyroidism Status: Chronic (10) Systolic CHF, chronic Status: Chronic Surgical Problems: (1) History of mitral valve replacement with mechanical valve Status: Chronic (2) Status post carotid endarterectomy Status: Chronic (3) Status post coronary artery bypass grafting Status: Chronic (4) Status post mechanical aortic valve replacement Status: Chronic . Procedures: CT head US abdomen cardiac monitoring IV meds transfusion 5 units pRBC's hemodialysis . [facility] . Admission Information HPI (per Admitting provider): HISTORY OF PRESENT ILLNESS: This is a 72-year-old male with past medical history significant for diabetes, hypertension, atrial fibrillation, chronic kidney disease stage IV, recently started on dialysis; history of rheumatic heart disease, status post mechanical aortic valve replacement and mechanical mitral valve replacement, on Coumadin; history of bilateral carotid disease, history of chronic diastolic congestive heart failure and systolic CHF, EF around 50%; history of CAD, history of anasarca, presents with not feeling well, dizziness and labs showed hemoglobin of 5.3. The patient was recently admitted to [facility] on September 17 with a fall and leg weakness and patient was found to have significant volume overload with anasarca and bilateral lower extremity edema and cellulitis and wound on both the back of the legs below knees and worsening chronic kidney disease stage IV . The patient was started on IV diuretics, IV vancomycin and Zosyn in [facility]. There was a concern for fibular osteomyelitis on x-ray, but CT scan was unremarkable. As the patient did not respond well to IV diuretics, he was started on dialysis at [facility] on September 22. The volume load somewhat improved, but his leg weakness did not improved and patient could not get MRI because of mechanical heart valves and the patient was transferred to [facility] tertiary care for further evaluation. The patient was seen by neurology at [place] and thought his leg weakness from mild distal neuropathy, probably secondary to diabetes and renal failure, but mainly his weakness was attributed to his deconditioning. Rehab placement was recommended and if still no improvement advised to followup as outpatient for further imaging and electrophysiological workup. Also in [place] his his hemoglobin was low. He was also got 1 unit of blood transfusion in [facility] 3units at [place]. His hemoglobin was in the 7's at one point was 5.5 .There was no obvious source of bleeding and was advised to get a colonoscopy as an outpatient and patient was discharged to [facility] as he was doing okay yesterday, but today morning, the routine labs in [facility] showed his hemoglobin was 5.3 and patient looked pale and was dizzy, weak and tired and he was transferred here as his hemoglobin dropped 2 units in 1 day. He was transferred here for further evaluation. The patient is somewhat lethargic but alert and oriented and states he is feeling weak and has poor appetite and dizzy. He says his last bowel movement was yesterday and denies any bloody vomiting or blood in the stools. Denies any chest pain or shortness of breath, denies any cough. No headaches. No sore throat, no cough, no runny nose, no sore throat, no difficulty swallowing. He was somewhat nauseous but no vomiting, no abdominal discomfort. He thinks his lower extremity edema has improved, but he did not look down to look at his lower extremities. He complains of some pressure ulcer in his back.But currently seems comfortable and hemodynamically stable. . Physical Exam (per Admitting): GENERAL: The patient is somewhat lethargic but alert and oriented. VITAL SIGNS: Temperature 36.8, pulse 77, respiratory rate 16, blood pressure 93/55, oxygen 96% on 2 liters. HEENT: Pale at present. No icterus. Pupils equal, round, and reactive to light. NECK: No JVD, no neck masses, no carotid bruits seen. CARDIOVASCULAR: S1, S2 heard. Regular rate and rhythm. Mechanical sound heard in mitral and aortic area. A tunneled catheter is seen on the right side of the chest. RESPIRATORY SYSTEM: Normal AP diameter. No accessory muscle use. No wheezing, no crackles. ABDOMEN: Soft, bowel sounds present. Mild distention, no guarding, no rigidity. CENTRAL NERVOUS SYSTEM: Somewhat lethargic but oriented x3. Moves his extremities. Nonfocal extremities. Bilateral lower extremity pedal edema, +1 present. No edema. SKIN: Stage I pressure ulcer seen on the sacral region and also on the posterior aspect of his bilateral lower extremities above ankles seen. . Hospital Course GI BLEED Transferred from [facility] due to severe anemia. Hgb in ED 5.3. Recurrent GI bleed on anticoagulants. GI consulted. Received IV pantoprazole. Endoscopies anticipated when stable. ACUTE BLOOD LOSS ANEMIA Hgb 5.3 at time of admission. Acute blood loss anemia secondary to GI bleed. Has received 5 units pRBC's (as of 10/14/17 a.m.). Hgb this morning 7.1. Follow H/H. Transfuse to maintain adequate H/H per guidelines. COAGULOPATHY INR 3.9 at time of admission. Due to warfarin therapy. Received vitamin K. INR this morning 1.5. CORONARY ARTERY DISEASE Aspirin on hold due to GI bleed. Continue metoprolol as hemodynamics allow. CHF Chest x-ray showed pulmonary edema. 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 No ALEXANDER or ARB due to CKD. Fluid management with hemodialysis. VALVULAR HEART DISEASE History of rheumatic heart disease, s/p aortic and mitral mechanical valve replacements. Best to maintain anticoagulation if possible to avoid cardioembolic event. ATRIAL FIBRILLATION Rate controlled. Continue metoprolol as hemodynamics allow. Anticoagulation as discussed above. HYPERTENSION BP low at times due to GI bleeding. Follow hemodynamics and titrate Rx. CKD V Hemodialysis under direction of Nephrology. CIRRHOSIS Noted on recent imaging. Etiology uncertain. Will need f/u with GI. DM TYPE 2 Well-controlled. Hgb A1C 5.4. Lantus / NovoLog per protocol. Serum glucose day of discharge 140. DYSLIPIDEMIA Continue atorvastatin. HYPOTHYROIDISM Continue levothyroxine. VTE PROPHYLAXIS SCD's. Anticoagulant management as discussed above. Ambulate when able. DISPOSITION Patient is well known [facility] and was last hospitalized there - 10/11/17. His medical problems are complex and he may be best served returning there for tertiary care services; may need advanced endoscopic procedures or interventional radiology services not available at this facility. Spoke with patient and his brother Mr. Rolan Wilder. They would like to return [place] [facility]. Contacted [facility]. Dr. Recinos (Hospital Medicine) accepted patient to their Special Care Unit. No beds available at this time; they will call back when one is available. . Total time spent on discharge = 50 minutes. This includes examination of the patient, discharge planning, medication reconciliation, and communication with other providers. . Discharge Instructions VITALS: per routine ACTIVITY: bedrest, turn q 2 hrs ALLERGIES: NKDA VTE PROPHYLAXIS: SCD's, IV heparin Reported Medications (at time of transfer from [facility]) Medications Dose Route/Sig Max Daily Dose Days Date Category Dose Instructions Benefiber (Wheat Dextrin) 1 Pow Pow 1 Dose PO DAILY 10/12/17 Reported Lantus (Insulin Glargine) 100 Unit/Ml Inj 12 Units SC QPM 10/12/17 Reported Lantus (Insulin Glargine) 100 Unit/Ml Inj 10 Units SC QAM 10/12/17 Reported Coumadin (Warfarin Sodium) 5 Mg Tab 5 Mg PO UD 10/12/17 Reported Tylenol (Acetaminophen) 325 Mg Tab 325 Mg PO Q6 PRN 10/12/17 Reported Nitrostat (Nitroglycerin) 0.4 Mg Tab 0.4 Mg UT PRN 10/12/17 Reported Toprol-Xl (Metoprolol Succinate) 25 Mg Tabcr 25 Mg PO DAILY 10/12/17 Reported Mens 50+ Multi Vitamin & (Multiple Vitamins W/ Minerals) 1 Tab Tab 1 Tab PO DAILY 10/12/17 Reported Levothyroxine Sodium 75 Mcg Tab 1 Tab PO DAILYBB 10/12/17 Reported Lipitor (Atorvastatin Calcium) 40 Mg Tab 40 Mg PO DAILY 10/12/17 Reported Aspirin Ec (Aspirin) 81 Mg Tab 81 Mg PO DAILY 10/12/17 Reported Colace (Docusate Sodium) 100 Mg Cap 1 Cap PO BID PRN 10/12/17 Reported Co Q 10 (Coenzyme Q10 (Ubidecarenone)) 100 Mg Cap 1 Cap PO DAILY 10/12/17 Reported TAKE WITH LIPITOR Novolog (Insulin Aspart) 100 Units/Ml Inj 1 Units SC ACHS 10/12/17 Reported Current Inpatient Medications Medications (Trade) Dose Ordered Sig/Britton Route Start Time Stop Time Status Last Admin Dose Admin Acetaminophen (Tylenol Tab) 650 mg Q4H PRN PO 10/12/17 14:00 11/11/17 13:59 Nitroglycerin (Nitrostat Tab) 0.4 mg UD PRN SL 10/12/17 14:00 11/11/17 13:59 Morphine Sulfate (MoRPHine SULFATE INJ) 2 mg Q2H PRN IV 10/12/17 14:00 10/26/17 13:59 Atorvastatin Calcium (Lipitor Tab) 40 mg DAILY PO 10/13/17 09:00 11/12/17 08:59 10/15/17 08:14 40 MG Docusate Sodium (coLACE CAP) 100 mg BID PRN PO 10/12/17 14:00 11/11/17 13:59 Levothyroxine Sodium (Synthroid Tab) 75 mcg DAILYBB PO 10/13/17 06:00 11/12/17 06:59 10/15/17 06:15 75 MCG Metoprolol Succinate (Toprol Xl Tab) 25 mg DAILY PO 10/13/17 09:00 11/12/17 08:59 Future Hold Multivitamins/ Minerals (Multivitamin W/ Minerals Tab) 1 tab DAILY PO 10/13/17 09:00 11/12/17 08:59 10/15/17 08:14 1 TAB Insulin Glargine (Lantus Solostar Pen) 5 units BID SC 10/12/17 21:00 11/11/17 20:59 Future hold 10/15/17 08:15 5 UNITS Pantoprazole Sodium 40 mg/ Dextrose 100 ml @ 20 mls/hr Q5H IV 10/12/17 16:00 11/11/17 15:59 10/15/17 18:21 20 MLS/HR Ondansetron HCl (Zofran Inj) 4 mg Q4H PRN IV 10/12/17 20:45 11/11/17 20:44 Metoprolol Tartrate (Lopressor Iv) 2.5 mg Q6 IV. 10/13/17 09:00 11/12/17 08:59 10/15/17 18:21 2.5 MG Heparin Sodium/ Dextrose 500 ml @ 10 mls/hr Q24H PRN IV 10/13/17 08:45 11/12/17 08:44 10/15/17 03:07 10 MLS/HR = 500 units/hr Phenol (Chloraseptic 1.4% Kenefic) 1 sprays Q2H PRN MT 10/14/17 00:30 11/13/17 00:29 Insulin Aspart (novoLOG ASPART) SLIDING SCALE G... ACHS SC 10/14/17 16:00 11/13/17 15:59 Last 24 Hours Test 10/15/17 02:13 10/15/17 05:25 10/15/17 05:30 10/15/17 11:11 Hemoglobin 8.8 g/dL 8.6 g/dL Hematocrit 26.7 % 25.6 % White Blood Count 7.76 K/uL Red Blood Count 2.82 M/uL Mean Corpuscular Volume 90.8 fL Mean Corpuscular Hemoglobin 30.5 pg Mean Corpuscular Hemoglobin Concent 33.6 g/dl Platelet Count 147 K/uL Mean Platelet Volume 10.8 fL Neutrophils (%) (Auto) 63.9 % Lymphocytes (%) (Auto) 11.9 % Monocytes (%) (Auto) 14.4 % Eosinophils (%) (Auto) 7.9 % Basophils (%) (Auto) 1.0 % Neutrophils # (Auto) 4.96 K/uL Lymphocytes # (Auto) 0.92 K/uL Monocytes # (Auto) 1.12 K/uL Eosinophils # (Auto) 0.61 K/uL Basophils # (Auto) 0.08 K/uL RDW Standard Deviation 55.7 fL RDW Coefficient of Variation 19.5 % Immature Granulocyte % (Auto) 0.9 % Immature Granulocyte # (Auto) 0.07 K/uL Polychromasia 1+ Anisocytosis PRESENT Prothrombin Time 15.4 SECONDS Prothromb Time International Ratio 1.5 Activated Partial Thromboplast Time 65.1 SECONDS Partial Thromboplastin Ratio 2.5 Sodium Level 133 mmol/L Potassium Level 3.5 mmol/L Chloride Level 98 mmol/L Carbon Dioxide Level 26 mmol/L Anion Gap 9.0 mmol/L Blood Urea Nitrogen 63 mg/dl Creatinine 3.60 mg/dl Est Creatinine Clear Calc Drug Dose 19.7 ml/min Estimated GFR () 18.4 Estimated GFR (Non- 15.9 BUN/Creatinine Ratio 17.4 Random Glucose 121 mg/dl Calcium Level 7.5 mg/dl Phosphorus Level 3.7 mg/dl Magnesium Level 2.0 mg/dl Total Bilirubin 1.1 mg/dl Direct Bilirubin 0.5 mg/dl Aspartate Amino Transf (AST/SGOT) 42 U/L Alanine Aminotransferase (ALT/SGPT) 17 U/L Alkaline Phosphatase 132 U/L Total Protein 5.4 gm/dl Albumin 1.9 gm/dl Bedside Glucose 126 mg/dl 159 mg/dl Test 10/15/17 15:11 10/15/17 19:13 Bedside Glucose 122 mg/dl Hemoglobin 8.5 g/dL Hematocrit 25.3 % Thank you for receiving this patient in transfer. Please call if you have any questions. Vaibhav Figueroa . Additional Copies To Pelon Perez D.O.; Carlos Hurley M.D.; Lorraine Goldberg PA-C
[2017-10-14 10:45] LABS: HEMATOCRIT 26.6 % (42-52); HEMOGLOBIN 9.1 g/dL (14.0-18.0)
[2017-10-14 11:19] LABS: PTT PATIENT 49.8 SECONDS (21.0-31.0)
--- NOTE | 2017-10-14 12:58 | Gastroenterology Progress Note ---
Gastroenterology Progress Note Patient was seen and examined, being followed for anemia and suspected GI bleed , endoscopy was held due to clinical instability and worsening cardiopulmonary disease, noted with Hct of 19, given PRBC and now it's 26. Patient denies abdominal pain. Remains on Heparin for Valvular heart disease. Patient and family wants transfer [place] [facility] On exam: Abdomen soft Rectal exam revealed dark green stool. Recommendations: Continue PPI Monitor H/H No overt bleeding at this time, if continues to improve and not transferred to [facility], will plan for Endoscopy on Monday.
[2017-10-14] MEDS ORDERED: NURSING VERBAL MED ORDER ONE (14:45)
--- NOTE | 2017-10-14 16:09 | Nephrology Progress Note ---
Nephrology Progress Note Date of Service: Oct 14, 2017. Subjective accepted for transfer to [facility] but waiting on bed. Tolerated 900 mL uf last evening. then needed 2 units pRBC overnight. voided 350 yesterday; so far today and ? ON no voids. denies dyspnea. c/o vertigo and thirst. had N earlier but settled. + fatigue. no pain. less melena. Objective Date Time Temp Pulse Resp B/P (MAP) Pulse Ox O2 Delivery O2 Flow Rate FiO2 10/14/17 14:01 36.6 72 24 113/54 (73) 99 Room Air 10/14/17 14:00 68 20 99 10/14/17 13:01 70 23 113/51 (71) 100 10/14/17 13:00 64 19 99 10/14/17 12:21 80 120/93 10/14/17 12:01 87 19 120/93 (102) 97 10/14/17 12:00 86 18 95 10/14/17 12:00 Room Air 10/14/17 11:01 119 21 123/56 (78) 92 10/14/17 11:00 91 21 98 10/14/17 10:01 79 25 117/47 (70) 97 10/14/17 10:00 83 22 96 10/14/17 09:01 87 21 116/57 (76) 96 10/14/17 09:00 85 17 95 10/14/17 08:01 72 22 144/83 (103) 97 10/14/17 08:00 94 21 96 10/14/17 07:30 36.7 81 18 144/83 (103) 97 Room Air 10/14/17 07:30 Room Air 10/14/17 07:01 75 26 131/55 (80) 98 10/14/17 07:00 78 21 96 10/14/17 06:00 36.7 78 18 132/52 96 10/14/17 05:01 72 25 138/54 (82) 97 10/14/17 05:00 36.7 80 24 129/52 96 10/14/17 04:46 80 28 129/52 (77) 96 10/14/17 04:45 36.5 78 24 138/54 98 10/14/17 04:30 37.0 76 22 116/42 98 10/14/17 04:02 71 18 116/42 (66) 98 10/14/17 04:00 98 Room Air 10/14/17 03:01 74 17 106/50 (68) 97 10/14/17 02:01 74 15 124/42 (69) 95 10/14/17 02:00 36.5 72 19 124/42 99 10/14/17 01:01 67 21 125/52 (76) 98 10/14/17 01:00 36.4 67 21 125/52 98 10/14/17 00:01 36.4 78 18 126/49 99 10/14/17 00:00 36.5 70 21 126/49 (74) 97 10/13/17 23:59 98 Room Air 10/13/17 23:30 36.5 73 20 109/47 99 10/13/17 23:10 36.4 69 25 110/49 99 10/13/17 22:01 73 22 111/53 (72) 97 Room Air 10/13/17 21:01 75 21 123/71 (88) 98 Room Air 10/13/17 20:02 37.1 69 22 102/44 (63) 98 Room Air 10/13/17 20:00 98 Room Air 10/13/17 18:02 84 16 118/63 (81) 98 Room Air 10/13/17 16:14 75 16 104/63 (77) 96 Room Air 10/13/17 16:00 Room Air Physical Exam: GENERAL: Awake, alert, oriented x3. very fatigued, near flat on RA EYES: No scleral icterus. HEENT: dry MM LUNGS: Clear to auscultation but diminished CARDIAC: Irregularly irregular. ABDOMEN: Bowel sounds quite active, soft, nontender, nondistended. no rivera EXTREMITIES: 1+ dependent and trace peripheral LE edema. Left heel ulcer NEUROLOGICALLY: cruz, fluent speech; exhausted DERMATOLOGIC: wounds/ecchymoses Current Inpatient Medications Medications (Trade) Dose Ordered Sig/Britton Route Start Time Stop Time Status Last Admin Dose Admin Acetaminophen (Tylenol Tab) 650 mg Q4H PRN PO 10/12/17 14:00 11/11/17 13:59 Nitroglycerin (Nitrostat Tab) 0.4 mg UD PRN SL 10/12/17 14:00 11/11/17 13:59 Morphine Sulfate (MoRPHine SULFATE INJ) 2 mg Q2H PRN IV 10/12/17 14:00 10/26/17 13:59 Atorvastatin Calcium (Lipitor Tab) 40 mg DAILY PO 10/13/17 09:00 11/12/17 08:59 10/14/17 10:00 40 MG Docusate Sodium (coLACE CAP) 100 mg BID PRN PO 10/12/17 14:00 11/11/17 13:59 Levothyroxine Sodium (Synthroid Tab) 75 mcg DAILYBB PO 10/13/17 06:00 11/12/17 06:59 10/14/17 06:47 75 MCG Metoprolol Succinate (Toprol Xl Tab) 25 mg DAILY PO 10/13/17 09:00 11/12/17 08:59 Future Hold Multivitamins/ Minerals (Multivitamin W/ Minerals Tab) 1 tab DAILY PO 10/13/17 09:00 11/12/17 08:59 10/14/17 10:00 1 TAB Insulin Glargine (Lantus Solostar Pen) 5 units BID SC 10/12/17 21:00 11/11/17 20:59 Future hold 10/14/17 09:08 5 UNITS Pantoprazole Sodium 40 mg/ Dextrose 100 ml @ 20 mls/hr Q5H IV 10/12/17 16:00 11/11/17 15:59 10/14/17 12:20 20 MLS/HR Ondansetron HCl (Zofran Inj) 4 mg Q4H PRN IV 10/12/17 20:45 11/11/17 20:44 Metoprolol Tartrate (Lopressor Iv) 2.5 mg Q6 IV. 10/13/17 09:00 11/12/17 08:59 10/14/17 12:21 2.5 MG Heparin Sodium/ Dextrose 500 ml @ 10 mls/hr Q24H PRN IV 10/13/17 08:45 11/12/17 08:44 10/13/17 21:16 13 MLS/HR Phenol (Chloraseptic 1.4% [place]) 1 sprays Q2H PRN MT 10/14/17 00:30 11/13/17 00:29 Insulin Aspart (novoLOG ASPART) SLIDING SCALE G... ACHS SC 10/14/17 16:00 11/13/17 15:59 Last 24 Hours Test 10/13/17 16:26 10/13/17 16:35 10/13/17 17:49 10/13/17 19:26 Hemoglobin 7.7 g/dL Hematocrit 22.9 % Activated Partial Thromboplast Time 153.6 SECONDS 138.2 SECONDS 75.1 SECONDS Partial Thromboplastin Ratio 5.9 5.3 2.9 Bedside Glucose 130 mg/dl Test 10/13/17 21:19 10/13/17 21:57 10/13/17 23:28 10/14/17 03:06 Bedside Glucose 199 mg/dl 167 mg/dl Hemoglobin 6.5 g/dL 7.1 g/dL Hematocrit 19.2 % 21.4 % White Blood Count 8.40 K/uL Red Blood Count 2.40 M/uL Mean Corpuscular Volume 89.2 fL Mean Corpuscular Hemoglobin 29.6 pg Mean Corpuscular Hemoglobin Concent 33.2 g/dl Platelet Count 121 K/uL Mean Platelet Volume 10.5 fL Neutrophils (%) (Auto) 69.6 % Lymphocytes (%) (Auto) 10.4 % Monocytes (%) (Auto) 12.1 % Eosinophils (%) (Auto) 6.4 % Basophils (%) (Auto) 0.8 % Neutrophils # (Auto) 5.84 K/uL Lymphocytes # (Auto) 0.87 K/uL Monocytes # (Auto) 1.02 K/uL Eosinophils # (Auto) 0.54 K/uL Basophils # (Auto) 0.07 K/uL RDW Standard Deviation 53.6 fL RDW Coefficient of Variation 19.9 % Immature Granulocyte % (Auto) 0.7 % Immature Granulocyte # (Auto) 0.06 K/uL Nucleated RBC Absolute Count (auto) 0.05 K/uL Nucleated Red Blood Cells % 0.6 % Hypochromasia PRESENT Anisocytosis PRESENT Prothrombin Time 15.2 SECONDS Prothromb Time International Ratio 1.5 Activated Partial Thromboplast Time 77.0 SECONDS Partial Thromboplastin Ratio 3.0 Sodium Level 135 mmol/L Potassium Level 3.6 mmol/L Chloride Level 99 mmol/L Carbon Dioxide Level 30 mmol/L Anion Gap 6.0 mmol/L Blood Urea Nitrogen 60 mg/dl Creatinine 3.33 mg/dl Est Creatinine Clear Calc Drug Dose 21.2 ml/min Estimated GFR () 20.3 Estimated GFR (Non- 17.5 BUN/Creatinine Ratio 18.1 Random Glucose 140 mg/dl Calcium Level 7.0 mg/dl Phosphorus Level 3.1 mg/dl Magnesium Level 2.1 mg/dl Total Bilirubin 1.0 mg/dl Direct Bilirubin 0.4 mg/dl Aspartate Amino Transf (AST/SGOT) 40 U/L Alanine Aminotransferase (ALT/SGPT) 15 U/L Alkaline Phosphatase 118 U/L Total Protein 4.8 gm/dl Albumin 1.7 gm/dl Test 10/14/17 10:28 10/14/17 11:15 Hemoglobin 9.1 g/dL Hematocrit 26.6 % Activated Partial Thromboplast Time 49.8 SECONDS Partial Thromboplastin Ratio 1.9 Bedside Glucose 151 mg/dl Assessment & Plan Complex 72 y/o M admitted from [facility] where he'd been less than 24 hrs w/ hgb 5.3 on arrival here 10/13 in the setting of chronic anticoagulation for mechanical mitral/aortic valves from rheumatic heart disease, chronic combined systolic/diastolic HF, HTN, DM, longstanding advanced CKD 4 now esrd. He was admitted to [facility] 09/17 after a fall and w/ marked anasarca for which chronic dialysis was started 09/22. He was transferred to [facility] for eval of severe leg weakness ultimately attributed to deconditioning. He has multiple wounds/sores - sacral decub, purulent lesions around tdc, ankle pressure ulcers. He has had 5 units pRBC since arrival here. He had HD yesterday w/ 900 mL fluid removal. Also is not anuric though does have some urinary retention. ESRD -plan HD tentatively 10/15 AM if still here and depending on clinical status; blood pressures/ chemistries acceptable currently volume overload multifactorial - combined heart failure, current transfusion dependence, esrd > > CXR this am more congested though pt still on RA -bladder scan q shift >> had >500 mL retained urine on eval today and has parameters for placement of rivera if needed -will give 20 mg IV lasix x 1 now--may need higher dose but start low to preserve bp; if more pRBC, recommend following these w/ similar dose of lasix Anemia of chronic disease w/ acute blood loss anemia. We will continue Procrit on dialysis; also getting frequent pRBC; GI following Renal osteodystrophy. phos 3.1; poor po intake/nutrition; no binder indicated currently; follow for need Care coordinated w/ Dr. Figueroa
[2017-10-14] MEDS ORDERED: FUROSEMIDE INJ 20 MG in SYRINGE 0 ML IV SCH (16:15)
[2017-10-15] VITALS (45 sets, daily range): BP systolic 96–152; BP diastolic 42–73; PULSE 61–99; TEMP 36.3–36.8; O2SAT 91–100
[2017-10-15 02:21] LABS: HEMATOCRIT 26.7 % (42-52); HEMOGLOBIN 8.8 g/dL (14.0-18.0)
[2017-10-15] MEDS: PANTOprazole INJ 40 MG in DEXTROSE 5% 100ML IV SCH ×4 (03:05→18:21)
[2017-10-15] MEDS: HEPARIN 25,000 UNIT/500ML D5W 500 ML IV PRN (03:07)
[2017-10-15 05:54] LABS: BASO ABS # 0.08 K/uL (0-0.2); EOS % 7.9 %; EOS ABS # 0.61 K/uL (0-0.5); HEMATOCRIT 25.6 % (42-52); HEMOGLOBIN 8.6 g/dL (14.0-18.0); IG# 0.07 K/uL (0.00-0.02); LYMPH % 11.9 %; LYMPH ABS # 0.92 K/uL (1.2-3.4); MEAN CELL VOLUME 90.8 fL (80-100); MEAN CORPUSCULAR HEMOGLOBIN 30.5 pg (25-34); MEAN CORPUSCULAR HGB CONC 33.6 g/dl (32-36); MEAN PLATELET VOLUME 10.8 fL (7.4-10.4); MONO % 14.4 %; MONO ABS # 1.12 K/uL (0.11-0.59); NEUT % 63.9 %; NEUT ABS # 4.96 K/uL (1.4-6.5); PLATELET COUNT 147 K/uL (130-400); RED CELL DISTRIBUTION WIDTH CV 19.5 % (11.5-14.5); RED CELL DISTRIBUTION WIDTH SD 55.7 fL (36.4-46.3); WHITE BLOOD COUNT 7.76 K/uL (4.8-10.8)
[2017-10-15 06:11] LABS: INR 1.5 (0.9-1.1)
[2017-10-15] MEDS: INSULIN ASPART 100 UNITS/ML 3 ML PEN SC SCH ×4 (06:13→20:19)
[2017-10-15 06:14] LABS: PTT PATIENT 65.1 SECONDS (21.0-31.0)
[2017-10-15] MEDS: METOPROLOL TARTRATE 1 MG/ML VIAL IV. SCH ×3 (06:14→18:21)
[2017-10-15] MEDS: LEVOTHYROXINE 75 MCG TAB PO SCH (06:15)
[2017-10-15 06:32] LABS: ALBUMIN 1.9 gm/dl (3.4-5.0); CALCIUM 7.5 mg/dl (8.5-10.1); CREATININE 3.6 mg/dl (0.60-1.40); POTASSIUM 3.5 mmol/L (3.5-5.1)
[2017-10-15 06:38] LABS: PHOSPHORUS 3.7 mg/dl (2.5-4.9); TOTAL PROTEIN 5.4 gm/dl (6.4-8.2)
[2017-10-15] MEDS ORDERED: IRON SUCROSE INJ 100 MG in SYRINGE 0 ML IV ONE (08:00)
[2017-10-15] MEDS ORDERED: EPOETIN ALFA 20,000 UNITS/ML VIAL IV. SCH (08:00)
[2017-10-15] MEDS: CEROVITE ADV FORMULA TAB PO SCH (08:14)
[2017-10-15] MEDS: ATORVASTATIN 40 MG TAB PO SCH (08:14)
[2017-10-15] MEDS: INSULIN GLARGINE SOLOSTAR 100 UNITS/ML 3 ML PEN SC SCH ×2 (08:15→20:24)
--- NOTE | 2017-10-15 09:55 | Gastroenterology Progress Note ---
Gastroenterology Progress Note Patient was seen and examined, feels fine today. No drop in H/H since yesterday and no melena or evidence of overt GI bleeding. He is being transferred [place] [facility] and awaiting a bed. Plan is to get his work up including endoscopy there and patient also wants his endoscopy at [facility]. On exam: Abdomen is soft. Recommendations: Monitor H/H. Continue PPI. Work up for ?Liver cirrhosis. Recall if any change in the transfer plan to arrange for endoscopy here.
--- NOTE | 2017-10-15 13:05 | Dialysis Progress Note ---
Nephrology Dialysis Note Date of Service: Oct 15, 2017. Subjective accepted for transfer to [facility] [place] but waiting on bed. no further melena so far today; 2 such stools yesterday; no further pRBC since last eval needed. vertigo resolved. still very weak. had urinary retention persistently and rivera placed > str cath for 650 mL urine then had 200 output w/ rivera placement today Objective Date Time Temp Pulse Resp B/P (MAP) Pulse Ox O2 Delivery O2 Flow Rate FiO2 10/15/17 10:45 91 135/64 10/15/17 10:30 81 138/60 10/15/17 10:00 36.7 68 144/57 (86) 10/15/17 09:30 36.7 68 22 118/52 (74) 98 Room Air 10/15/17 07:30 36.5 68 22 101/73 (82) 100 Room Air 10/15/17 07:30 Room Air 10/15/17 06:14 70 140/57 10/15/17 05:01 36.6 62 22 128/65 (86) 100 10/15/17 04:01 73 24 137/63 (87) 100 10/15/17 04:00 99 Room Air 10/15/17 03:01 61 17 118/47 (70) 98 10/15/17 02:01 67 13 114/51 (72) 99 10/15/17 01:01 66 17 152/49 (83) 99 10/15/17 00:01 63 18 140/46 (77) 99 10/14/17 23:59 99 Room Air 10/14/17 23:18 58 139/62 10/14/17 22:01 36.5 61 18 131/51 (77) 98 10/14/17 21:01 70 16 125/55 (78) 96 10/14/17 20:05 36.3 73 20 133/61 (85) 98 10/14/17 20:00 99 Room Air 10/14/17 18:01 71 16 122/53 (76) 99 10/14/17 18:00 65 17 99 10/14/17 17:18 95 135/62 10/14/17 17:01 76 24 132/62 (85) 97 10/14/17 17:00 86 16 97 10/14/17 16:00 Room Air 10/14/17 16:00 36.6 72 22 123/55 (77) 99 Room Air 10/14/17 14:01 36.6 72 24 113/54 (73) 99 Room Air 10/14/17 14:00 68 20 99 10/14/17 13:01 70 23 113/51 (71) 100 10/14/17 13:00 64 19 99 10/14/17 12:21 80 120/93 10/14/17 12:01 87 19 120/93 (102) 97 10/14/17 12:00 86 18 95 10/14/17 12:00 Room Air 10/14/17 11:01 119 21 123/56 (78) 92 10/14/17 11:00 91 21 98 Physical Exam: GENERAL: Awake, alert, oriented x3. very fatigued, near flat on RA EYES: No scleral icterus. HEENT: dry MM LUNGS: Clear to auscultation but diminished CARDIAC: Irregularly irregular. ABDOMEN: Bowel sounds quite active, soft, nontender, nondistended. scant brown in rivera EXTREMITIES: trace dependent LE edema. Left heel ulcer NEUROLOGICALLY: cruz, fluent speech; exhausted DERMATOLOGIC: wounds/ecchymoses Current Inpatient Medications Medications (Trade) Dose Ordered Sig/Britton Route Start Time Stop Time Status Last Admin Dose Admin Acetaminophen (Tylenol Tab) 650 mg Q4H PRN PO 10/12/17 14:00 11/11/17 13:59 Nitroglycerin (Nitrostat Tab) 0.4 mg UD PRN SL 10/12/17 14:00 11/11/17 13:59 Morphine Sulfate (MoRPHine SULFATE INJ) 2 mg Q2H PRN IV 10/12/17 14:00 10/26/17 13:59 Atorvastatin Calcium (Lipitor Tab) 40 mg DAILY PO 10/13/17 09:00 11/12/17 08:59 10/15/17 08:14 40 MG Docusate Sodium (coLACE CAP) 100 mg BID PRN PO 10/12/17 14:00 11/11/17 13:59 Levothyroxine Sodium (Synthroid Tab) 75 mcg DAILYBB PO 10/13/17 06:00 11/12/17 06:59 10/15/17 06:15 75 MCG Metoprolol Succinate (Toprol Xl Tab) 25 mg DAILY PO 10/13/17 09:00 11/12/17 08:59 Future Hold Multivitamins/ Minerals (Multivitamin W/ Minerals Tab) 1 tab DAILY PO 10/13/17 09:00 11/12/17 08:59 10/15/17 08:14 1 TAB Insulin Glargine (Lantus Solostar Pen) 5 units BID SC 10/12/17 21:00 11/11/17 20:59 Future hold 10/15/17 08:15 5 UNITS Pantoprazole Sodium 40 mg/ Dextrose 100 ml @ 20 mls/hr Q5H IV 10/12/17 16:00 11/11/17 15:59 10/15/17 08:14 20 MLS/HR Ondansetron HCl (Zofran Inj) 4 mg Q4H PRN IV 10/12/17 20:45 11/11/17 20:44 Metoprolol Tartrate (Lopressor Iv) 2.5 mg Q6 IV. 10/13/17 09:00 11/12/17 08:59 10/15/17 06:14 2.5 MG Heparin Sodium/ Dextrose 500 ml @ 10 mls/hr Q24H PRN IV 10/13/17 08:45 11/12/17 08:44 10/15/17 03:07 10 MLS/HR Phenol (Chloraseptic 1.4% [place]) 1 sprays Q2H PRN MT 10/14/17 00:30 11/13/17 00:29 Insulin Aspart (novoLOG ASPART) SLIDING SCALE G... ACHS SC 10/14/17 16:00 11/13/17 15:59 Epoetin Peter (Procrit Inj) 20,000 units 0800 IV. 10/15/17 08:00 10/15/17 18:00 Last 24 Hours Test 10/14/17 11:15 10/14/17 15:33 10/14/17 20:09 10/15/17 02:13 Bedside Glucose 151 mg/dl 136 mg/dl 161 mg/dl Hemoglobin 8.8 g/dL Hematocrit 26.7 % Test 10/15/17 05:25 10/15/17 05:30 White Blood Count 7.76 K/uL Red Blood Count 2.82 M/uL Hemoglobin 8.6 g/dL Hematocrit 25.6 % Mean Corpuscular Volume 90.8 fL Mean Corpuscular Hemoglobin 30.5 pg Mean Corpuscular Hemoglobin Concent 33.6 g/dl Platelet Count 147 K/uL Mean Platelet Volume 10.8 fL Neutrophils (%) (Auto) 63.9 % Lymphocytes (%) (Auto) 11.9 % Monocytes (%) (Auto) 14.4 % Eosinophils (%) (Auto) 7.9 % Basophils (%) (Auto) 1.0 % Neutrophils # (Auto) 4.96 K/uL Lymphocytes # (Auto) 0.92 K/uL Monocytes # (Auto) 1.12 K/uL Eosinophils # (Auto) 0.61 K/uL Basophils # (Auto) 0.08 K/uL RDW Standard Deviation 55.7 fL RDW Coefficient of Variation 19.5 % Immature Granulocyte % (Auto) 0.9 % Immature Granulocyte # (Auto) 0.07 K/uL Polychromasia 1+ Anisocytosis PRESENT Prothrombin Time 15.4 SECONDS Prothromb Time International Ratio 1.5 Activated Partial Thromboplast Time 65.1 SECONDS Partial Thromboplastin Ratio 2.5 Sodium Level 133 mmol/L Potassium Level 3.5 mmol/L Chloride Level 98 mmol/L Carbon Dioxide Level 26 mmol/L Anion Gap 9.0 mmol/L Blood Urea Nitrogen 63 mg/dl Creatinine 3.60 mg/dl Est Creatinine Clear Calc Drug Dose 19.7 ml/min Estimated GFR () 18.4 Estimated GFR (Non- 15.9 BUN/Creatinine Ratio 17.4 Random Glucose 121 mg/dl Calcium Level 7.5 mg/dl Phosphorus Level 3.7 mg/dl Magnesium Level 2.0 mg/dl Total Bilirubin 1.1 mg/dl Direct Bilirubin 0.5 mg/dl Aspartate Amino Transf (AST/SGOT) 42 U/L Alanine Aminotransferase (ALT/SGPT) 17 U/L Alkaline Phosphatase 132 U/L Total Protein 5.4 gm/dl Albumin 1.9 gm/dl Bedside Glucose 126 mg/dl Assessment & Plan Complex 72 y/o M admitted from [facility] where he'd been less than 24 hrs w/ hgb 5.3 on arrival here 10/13 in the setting of chronic anticoagulation for mechanical mitral/aortic valves from rheumatic heart disease, chronic combined systolic/diastolic HF, HTN, DM, longstanding advanced CKD 4 now esrd. He was admitted to [facility] 12/24 after a fall and w/ marked anasarca for which chronic dialysis was started 09/22. He was transferred to [facility] [place] for eval of severe leg weakness ultimately attributed to deconditioning. He has multiple wounds/sores - sacral decub, purulent lesions around tdc, ankle pressure ulcers. He has had 5 units pRBC since arrival here. He had HD 10/13 w/ 900 mL fluid removal. Also is not anuric though does have some urinary retention. ESRD -undergoing HD today w/ goal up to 1.5L fluid removal depending on hemodynamics -plan HD tentatively 10/16 depending on clinical status volume overload multifactorial - combined heart failure, current transfusion dependence, esrd Anemia of chronic disease w/ acute blood loss anemia. We will continue Procrit on dialysis; also getting frequent pRBC; GI following Renal osteodystrophy. phos 3.1; poor po intake/nutrition; no binder indicated currently; follow for need Care coordinated w/ Dr. Figueroa
--- NOTE | 2017-10-15 13:48 | Critical Care Progress Note ---
Critical Care Progress Note Date of Service Oct 15, 2017. ICU Day ICU Day Number: [address] Subjective Patient is feeling well. He has no complaints. He denies chest pain, shortness of breath, or abdominal pain. He states he is confused about where he is. Objective GENERAL: Awake, alert, pale, in no distress HENT: Normocephalic, atraumatic. Oropharynx unremarkable. EYES: Normal conjunctiva. Sclera non-icteric. NECK: Supple. No nuchal rigidity. No JVD. RESPIRATORY: Clear to auscultation. CARDIAC: Irregularly irregular. Extremities warm and well perfused. ABDOMEN: Soft, non-distended. No tenderness to palpation. No rebound or guarding. No masses. MUSCULOSKELETAL: Chest examination reveals no tenderness. Patient has multiple wounds on right buttocks, right calf, heels bilaterally LOWER EXTREMITIES: Calves are equal size bilaterally and non-tender. No edema. No discoloration. SKIN: No rash or jaundice noted. Multiple scratches and bruises on all extremities. Bleeding wound near right elbow RECTAL: MARYSOL per GI showed normal green stool. Assessment & Plan 72 yo male with significant PMH admitted for elevated INR and Hgb of 5.3. Transfused 5 units blood in house with Hb increase to 8.6. Awaiting transfer to [facility] for further GI management. 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 monitor mental status - CT head negative CV - Continue atorvastatin 40, toprol xl 25 converted to metoprolol tartrate 2.5 q6h IV, nitro prn - Clear liquid, low sodium renal diet - Recent echo at [facility] EF 50% - Imperative that patient started on anticoagulation due to mechanical heart valves. Restarted on low dose heparin 10/13/17. - Trop 0.03 on admission. Repeat 0.034. Unlikely related to cardiac ischemia. - CXR shows pulmonary HTN - VSS, but has occasional episodes of asymptomatic bradycardia. Hx of SSS but no pacemaker. Resp - CXR showed atelectasis/airspace opacities at left base and bilateral pleural effusions - VSS, Ox sat 99 on RA - Denies dyspnea - Continue to monitor GI -Awaiting transfer to [place] for further GI investigation. -Per nursing, had 2x black/tarry stool last evening -GI consulted, dark brown stool on rectal exam -Hx of cirrhosis, unknown etiology: RUQ US 09/29/17: Cirrhotic morphology of the liver without gross mass identified. Moderate ascites with a site marked in the left lower quadrant for paracentesis. Right pleural effusion. -FOB positive, Hep B negative thus far -Consider scanning, with or without contrast, d/w nephrology -DC NGT -Zofran 4 units prn for nausea -Pantoprazole IV -H&H BID -Continue Heparin Nephro - Na 133, K 3.5, BUN 63, Cr 3.60 - CKD stage IV. He had not required dialysis prior to last hospital admission ( started 09/22/17), and was told he would need it 3x/week. Unsure if he gets IV iron/EPO. - Dialysis today, goal removal 1.2L Continue to monitor Phos level, currently 3.7 - Watch cath site. yellowed purulent lesions surrounding access site. continue to monitor Endo -Continue levythyroxine for hypothyroidism -ISS -Glucose levels running 120-130 ID Afebrile, normal WBC Treated for cellulitis on posterior legs at previous hospital with vanc/zosyn Consider blood cx Wound culture sent Heme: -Multifactorial anemia: ?chronic disease, ?acute blood loss -has received 5 units, 2 units overnight as levels dropped to 6.5, 7.1; Hgb up to 8.9 today. -Platelets 147; WBC normal at 7.76 -Given 2.5 vit K in ED, no obvious source of bleeding -FOB positive -INR 1.5; continue IV heparin -Fibrinogen level sent -Maintain 2x 18 gauge lines or larger Resident Physician Supervision Note: Dr. Armstrong was resident physician during care of patient. I separately evaluated patient and did history and exam. I discussed the case with the resident and generally agree with the findings and plan. H&H appears to stabilized overnight. Still awaiting transfer to [facility] for complexity of care and likely need for technically difficult endoscopic evaluation, possible need for interventional radiology intervention. Patient remains critically ill. Tolerated hemodialysis today. I have personally spent 30 minutes of critical care time in the direct management of this patient. This is a life/limb threatening event. This includes time spent evaluating patient, direct bedside care, chart review, placing orders, interpretation of diagnostic studies, discussion with consultants, patient, and/or family members regarding treatment decisions, as well as other required patient management activities. This time is exclusive of all separately billable procedures, and teaching time and separate from and in addition to any other critical care service time. Documented By: Ananda Way DO Consults & Procedures Consultants: Nephrology: Dr. Holland Gastro: Dr. Abrams Wound care Procedures: 10/12/17: NGT placement for bowel prep 10/14/17: NGT removed Data Medications: Current Inpatient Medications Medications (Trade) Dose Ordered Sig/Britton Route Start Time Stop Time Status Last Admin Dose Admin Acetaminophen (Tylenol Tab) 650 mg Q4H PRN PO 10/12/17 14:00 11/11/17 13:59 Nitroglycerin (Nitrostat Tab) 0.4 mg UD PRN SL 10/12/17 14:00 11/11/17 13:59 Morphine Sulfate (MoRPHine SULFATE INJ) 2 mg Q2H PRN IV 10/12/17 14:00 10/26/17 13:59 Atorvastatin Calcium (Lipitor Tab) 40 mg DAILY PO 10/13/17 09:00 11/12/17 08:59 10/14/17 10:00 40 MG Docusate Sodium (coLACE CAP) 100 mg BID PRN PO 10/12/17 14:00 11/11/17 13:59 Levothyroxine Sodium (Synthroid Tab) 75 mcg DAILYBB PO 10/13/17 06:00 11/12/17 06:59 10/15/17 06:15 75 MCG Metoprolol Succinate (Toprol Xl Tab) 25 mg DAILY PO 10/13/17 09:00 11/12/17 08:59 Future Hold Multivitamins/ Minerals (Multivitamin W/ Minerals Tab) 1 tab DAILY PO 10/13/17 09:00 11/12/17 08:59 10/14/17 10:00 1 TAB Insulin Glargine (Lantus Solostar Pen) 5 units BID SC 10/12/17 21:00 11/11/17 20:59 Future hold 10/14/17 20:19 5 UNITS Pantoprazole Sodium 40 mg/ Dextrose 100 ml @ 20 mls/hr Q5H IV 10/12/17 16:00 11/11/17 15:59 10/15/17 03:05 20 MLS/HR Ondansetron HCl (Zofran Inj) 4 mg Q4H PRN IV 10/12/17 20:45 11/11/17 20:44 Metoprolol Tartrate (Lopressor Iv) 2.5 mg Q6 IV. 10/13/17 09:00 11/12/17 08:59 10/15/17 06:14 2.5 MG Heparin Sodium/ Dextrose 500 ml @ 10 mls/hr Q24H PRN IV 10/13/17 08:45 11/12/17 08:44 10/15/17 03:07 10 MLS/HR Phenol (Chloraseptic 1.4% [place]) 1 sprays Q2H PRN MT 10/14/17 00:30 11/13/17 00:29 Insulin Aspart (novoLOG ASPART) SLIDING SCALE G... ACHS SC 10/14/17 16:00 11/13/17 15:59 Epoetin Peter (Procrit Inj) 20,000 units 0800 IV. 10/15/17 08:00 10/15/17 18:00 Iron Sucrose 100 mg/Syringe 5 ml @ 1 mls/min ONE ONCE IV 10/15/17 08:00 10/15/17 08:04 Heparin Sodium (Porcine) (No Heparin In Dialysis) 1 ea ONE ONCE N/A 10/15/17 08:00 10/15/17 08:01 I & O: 10/14/17 10/15/17 10/16/17 07:59 07:59 07:59 Intake Total 1722 ml 2154 ml Output Total 1250 ml 850 ml Balance 472 ml 1304 ml Vital Signs: Date Time Temp Pulse Resp B/P (MAP) Pulse Ox O2 Delivery O2 Flow Rate FiO2 10/15/17 06:14 70 140/57 10/15/17 05:01 36.6 62 22 128/65 (86) 100 10/15/17 04:01 73 24 137/63 (87) 100 10/15/17 04:00 99 Room Air 10/15/17 03:01 61 17 118/47 (70) 98 10/15/17 02:01 67 13 114/51 (72) 99 10/15/17 01:01 66 17 152/49 (83) 99 10/15/17 00:01 63 18 140/46 (77) 99 10/14/17 23:59 99 Room Air 10/14/17 23:18 58 139/62 10/14/17 22:01 36.5 61 18 131/51 (77) 98 10/14/17 21:01 70 16 125/55 (78) 96 10/14/17 20:05 36.3 73 20 133/61 (85) 98 10/14/17 20:00 99 Room Air 10/14/17 18:01 71 16 122/53 (76) 99 10/14/17 18:00 65 17 99 10/14/17 17:18 95 135/62 10/14/17 17:01 76 24 132/62 (85) 97 10/14/17 17:00 86 16 97 10/14/17 16:00 Room Air 10/14/17 16:00 36.6 72 22 123/55 (77) 99 Room Air 10/14/17 14:01 36.6 72 24 113/54 (73) 99 Room Air 10/14/17 14:00 68 20 99 10/14/17 13:01 70 23 113/51 (71) 100 10/14/17 13:00 64 19 99 10/14/17 12:21 80 120/93 10/14/17 12:01 87 19 120/93 (102) 97 10/14/17 12:00 86 18 95 10/14/17 12:00 Room Air 10/14/17 11:01 119 21 123/56 (78) 92 10/14/17 11:00 91 21 98 10/14/17 10:01 79 25 117/47 (70) 97 10/14/17 10:00 83 22 96 10/14/17 09:01 87 21 116/57 (76) 96 10/14/17 09:00 85 17 95 10/14/17 08:01 72 22 144/83 (103) 97 10/14/17 08:00 94 21 96 10/14/17 07:30 36.7 81 18 144/83 (103) 97 Room Air 10/14/17 07:30 Room Air Laboratory Results: Last 24 Hours Test 10/14/17 10:28 10/14/17 11:15 10/14/17 15:33 10/14/17 20:09 Hemoglobin 9.1 g/dL Hematocrit 26.6 % Activated Partial Thromboplast Time 49.8 SECONDS Partial Thromboplastin Ratio 1.9 Bedside Glucose 151 mg/dl 136 mg/dl 161 mg/dl Test 10/15/17 02:13 10/15/17 05:25 10/15/17 05:30 Hemoglobin 8.8 g/dL 8.6 g/dL Hematocrit 26.7 % 25.6 % White Blood Count 7.76 K/uL Red Blood Count 2.82 M/uL Mean Corpuscular Volume 90.8 fL Mean Corpuscular Hemoglobin 30.5 pg Mean Corpuscular Hemoglobin Concent 33.6 g/dl Platelet Count 147 K/uL Mean Platelet Volume 10.8 fL Neutrophils (%) (Auto) 63.9 % Lymphocytes (%) (Auto) 11.9 % Monocytes (%) (Auto) 14.4 % Eosinophils (%) (Auto) 7.9 % Basophils (%) (Auto) 1.0 % Neutrophils # (Auto) 4.96 K/uL Lymphocytes # (Auto) 0.92 K/uL Monocytes # (Auto) 1.12 K/uL Eosinophils # (Auto) 0.61 K/uL Basophils # (Auto) 0.08 K/uL RDW Standard Deviation 55.7 fL RDW Coefficient of Variation 19.5 % Immature Granulocyte % (Auto) 0.9 % Immature Granulocyte # (Auto) 0.07 K/uL Polychromasia 1+ Anisocytosis PRESENT Prothrombin Time 15.4 SECONDS Prothromb Time International Ratio 1.5 Activated Partial Thromboplast Time 65.1 SECONDS Partial Thromboplastin Ratio 2.5 Sodium Level 133 mmol/L Potassium Level 3.5 mmol/L Chloride Level 98 mmol/L Carbon Dioxide Level 26 mmol/L Anion Gap 9.0 mmol/L Blood Urea Nitrogen 63 mg/dl Creatinine 3.60 mg/dl Est Creatinine Clear Calc Drug Dose 19.7 ml/min Estimated GFR () 18.4 Estimated GFR (Non- 15.9 BUN/Creatinine Ratio 17.4 Random Glucose 121 mg/dl Calcium Level 7.5 mg/dl Phosphorus Level 3.7 mg/dl Magnesium Level 2.0 mg/dl Total Bilirubin 1.1 mg/dl Direct Bilirubin 0.5 mg/dl Aspartate Amino Transf (AST/SGOT) 42 U/L Alanine Aminotransferase (ALT/SGPT) 17 U/L Alkaline Phosphatase 132 U/L Total Protein 5.4 gm/dl Albumin 1.9 gm/dl Bedside Glucose 126 mg/dl Resident Tracking Resident Involvement: Resident Care Provided Care Provided: Adult Hospital Medicine
[2017-10-15 19:34] LABS: HEMATOCRIT 25.3 % (42-52); HEMOGLOBIN 8.5 g/dL (14.0-18.0)
--- NOTE | 2017-10-15 20:20 | Progress Note ---
Medicine Progress Note Date & Time of Visit: Oct 15, 2017 at ~ 0900 . Subjective CC: Follow-up visit for multiple problems. HPI: Hemodynamically stable. Melena improved. No abdominal pain. No nausea or vomiting. [place]ing [place] [facility] Hemodialysis anticipated today. ROS: General- no fever Resp- no cough; no shortness of breath Cardiac- no chest pain GI- as noted above in HPI - [place] cath . Objective Last 8 Hrs Date Time Temp Pulse Resp B/P (MAP) Pulse Ox O2 Delivery O2 Flow Rate FiO2 10/15/17 19:01 36.3 80 19 102/51 (68) 95 Room Air 10/15/17 18:21 93 124/53 10/15/17 18:00 85 22 124/53 (76) 95 Room Air 10/15/17 16:00 36.7 93 22 132/72 (92) 98 Room Air 10/15/17 16:00 Room Air 10/15/17 14:00 36.8 95 119/56 (77) 10/15/17 13:30 92 96/42 10/15/17 13:26 36.7 76 22 120/63 (82) 98 Room Air 10/15/17 13:15 94 120/63 10/15/17 13:00 98 107/49 10/15/17 12:45 99 132/60 10/15/17 12:30 92 111/63 10/15/17 12:16 88 21 113/53 (73) 96 Physical Exam: General- lying in bed;no acute distress Eyes- anicteric Lungs- bibasilar rales; no respiratory distress Cardiovascular- irregular; mechanical valve sounds; + JVD; trace pretibial edema Abdomen- + BS, soft, slightly distended, nontender Extremities- no cyanosis; no calf tenderness; SCD's applied Neuro- alert, mild confusion Skin- warm & dry . Laboratory Results: Last 24 Hours Test 10/15/17 02:13 10/15/17 05:25 10/15/17 05:30 10/15/17 11:11 Hemoglobin 8.8 g/dL 8.6 g/dL Hematocrit 26.7 % 25.6 % White Blood Count 7.76 K/uL Red Blood Count 2.82 M/uL Mean Corpuscular Volume 90.8 fL Mean Corpuscular Hemoglobin 30.5 pg Mean Corpuscular Hemoglobin Concent 33.6 g/dl Platelet Count 147 K/uL Mean Platelet Volume 10.8 fL Neutrophils (%) (Auto) 63.9 % Lymphocytes (%) (Auto) 11.9 % Monocytes (%) (Auto) 14.4 % Eosinophils (%) (Auto) 7.9 % Basophils (%) (Auto) 1.0 % Neutrophils # (Auto) 4.96 K/uL Lymphocytes # (Auto) 0.92 K/uL Monocytes # (Auto) 1.12 K/uL Eosinophils # (Auto) 0.61 K/uL Basophils # (Auto) 0.08 K/uL RDW Standard Deviation 55.7 fL RDW Coefficient of Variation 19.5 % Immature Granulocyte % (Auto) 0.9 % Immature Granulocyte # (Auto) 0.07 K/uL Polychromasia 1+ Anisocytosis PRESENT Prothrombin Time 15.4 SECONDS Prothromb Time International Ratio 1.5 Activated Partial Thromboplast Time 65.1 SECONDS Partial Thromboplastin Ratio 2.5 Sodium Level 133 mmol/L Potassium Level 3.5 mmol/L Chloride Level 98 mmol/L Carbon Dioxide Level 26 mmol/L Anion Gap 9.0 mmol/L Blood Urea Nitrogen 63 mg/dl Creatinine 3.60 mg/dl Est Creatinine Clear Calc Drug Dose 19.7 ml/min Estimated GFR () 18.4 Estimated GFR (Non- 15.9 BUN/Creatinine Ratio 17.4 Random Glucose 121 mg/dl Calcium Level 7.5 mg/dl Phosphorus Level 3.7 mg/dl Magnesium Level 2.0 mg/dl Total Bilirubin 1.1 mg/dl Direct Bilirubin 0.5 mg/dl Aspartate Amino Transf (AST/SGOT) 42 U/L Alanine Aminotransferase (ALT/SGPT) 17 U/L Alkaline Phosphatase 132 U/L Total Protein 5.4 gm/dl Albumin 1.9 gm/dl Bedside Glucose 126 mg/dl 159 mg/dl Test 10/15/17 15:11 10/15/17 19:13 Bedside Glucose 122 mg/dl Hemoglobin 8.5 g/dL Hematocrit 25.3 % Assessment & Plan GI BLEED Transferred from [facility] due to severe anemia. Hgb in ED was 5.3. Recurrent GI bleed on anticoagulants. GI consulted. Received IV pantoprazole. Endoscopies anticipated when stable. ACUTE BLOOD LOSS ANEMIA Hgb 5.3 at time of admission. Acute blood loss anemia secondary to GI bleed. Received 5 units pRBC's. Hgb this morning 8.6. Follow H/H. Transfuse to maintain adequate H/H per guidelines. COAGULOPATHY INR 3.9 at time of admission. Due to warfarin therapy. Received vitamin K. INR this morning 1.5. CORONARY ARTERY DISEASE Aspirin on hold due to GI bleed. Continue metoprolol as hemodynamics allow. CHF Chest x-ray showed pulmonary edema. 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 No ALEXANDER or ARB due to CKD. Fluid management with hemodialysis. VALVULAR HEART DISEASE History of rheumatic heart disease, s/p aortic and mitral mechanical valve replacements. Best to maintain anticoagulation if possible to avoid cardioembolic event. ATRIAL FIBRILLATION Rate controlled. Continue metoprolol as hemodynamics allow. Anticoagulation as discussed above. HYPERTENSION BP low at times due to GI bleeding. Follow hemodynamics and titrate Rx. CKD V Hemodialysis under direction of Nephrology. CIRRHOSIS Noted on recent imaging. Etiology uncertain. Will need f/u with GI. DM TYPE 2 Well-controlled. Hgb A1C 5.4. Lantus / NovoLog per protocol. Serum glucose this morning = 126. DYSLIPIDEMIA Continue atorvastatin. HYPOTHYROIDISM Continue levothyroxine. VTE PROPHYLAXIS SCD's. Anticoagulant management as discussed above. Ambulate when able. DISPOSITION Patient is well known [facility] and was last hospitalized there - 10/11/17. His medical problems are complex and he may be best served returning there for tertiary care services. At high risk for bleeding or thromboembolic events. May need advanced endoscopic procedures or interventional radiology services not available at this facility. Spoke with patient and his brother Mr. Rolan Wilder. They would like to return to [facility]. Contacted [facility]. Dr. Recinos (Hospital Medicine) accepted patient to their Special Care Unit. Transfer anticipated when bed available. . Consultants: [facility] GI Nephrology . Procedures: CT head US abdomen cardiac monitoring IV meds transfusion 5 units pRBC's hemodialysis . Current Inpatient Medications: Current Inpatient Medications Medications (Trade) Dose Ordered Sig/Britton Route Start Time Stop Time Status Last Admin Dose Admin Acetaminophen (Tylenol Tab) 650 mg Q4H PRN PO 10/12/17 14:00 11/11/17 13:59 Nitroglycerin (Nitrostat Tab) 0.4 mg UD PRN SL 10/12/17 14:00 11/11/17 13:59 Morphine Sulfate (MoRPHine SULFATE INJ) 2 mg Q2H PRN IV 10/12/17 14:00 10/26/17 13:59 Atorvastatin Calcium (Lipitor Tab) 40 mg DAILY PO 10/13/17 09:00 11/12/17 08:59 10/15/17 08:14 40 MG Docusate Sodium (coLACE CAP) 100 mg BID PRN PO 10/12/17 14:00 11/11/17 13:59 Levothyroxine Sodium (Synthroid Tab) 75 mcg DAILYBB PO 10/13/17 06:00 11/12/17 06:59 10/15/17 06:15 75 MCG Metoprolol Succinate (Toprol Xl Tab) 25 mg DAILY PO 10/13/17 09:00 11/12/17 08:59 Future Hold Multivitamins/ Minerals (Multivitamin W/ Minerals Tab) 1 tab DAILY PO 10/13/17 09:00 11/12/17 08:59 10/15/17 08:14 1 TAB Insulin Glargine (Lantus Solostar Pen) 5 units BID SC 10/12/17 21:00 11/11/17 20:59 Future hold 10/15/17 08:15 5 UNITS Pantoprazole Sodium 40 mg/ Dextrose 100 ml @ 20 mls/hr Q5H IV 10/12/17 16:00 11/11/17 15:59 10/15/17 18:21 20 MLS/HR Ondansetron HCl (Zofran Inj) 4 mg Q4H PRN IV 10/12/17 20:45 11/11/17 20:44 Metoprolol Tartrate (Lopressor Iv) 2.5 mg Q6 IV. 10/13/17 09:00 11/12/17 08:59 10/15/17 18:21 2.5 MG Heparin Sodium/ Dextrose 500 ml @ 10 mls/hr Q24H PRN IV 10/13/17 08:45 11/12/17 08:44 10/15/17 03:07 10 MLS/HR Phenol (Chloraseptic 1.4% Amber) 1 sprays Q2H PRN MT 10/14/17 00:30 11/13/17 00:29 Insulin Aspart (novoLOG ASPART) SLIDING SCALE G... KATHYS [place] 10/14/17 16:00 11/13/17 15:59
== END 2017-10-15 21:40 | disposition short-term general hospital (02) | DRG 813 ==
LOC: C.EDB 10:31 → C.MSICU 14:00 → ENRESERV 14:24
PROVIDERS: ADMIT Hospitalist; ATTEND Hospitalist
DX: D68.318 Other hemorrhagic disorder due to intrinsic circulating anticoagulants, antibodies, or inhibitors (principal); K92.2 Gastrointestinal hemorrhage, unspecified; N18.6 End stage renal disease; I13.2 Hypertensive heart and chronic kidney disease with heart failure and with stage 5 chronic kidney disease, or end stage renal disease; I50.43 Acute on chronic combined systolic (congestive) and diastolic (congestive) heart failure; D62 Acute posthemorrhagic anemia; I48.91 Unspecified atrial fibrillation; Z79.01 Long term (current) use of anticoagulants; K74.60 Unspecified cirrhosis of liver; E11.21 Type 2 diabetes mellitus with diabetic nephropathy; E78.5 Hyperlipidemia, unspecified; E03.9 Hypothyroidism, unspecified; Z95.2 Presence of prosthetic heart valve; Z87.891 Personal history of nicotine dependence; Z99.2 Dependence on renal dialysis; I09.9 Rheumatic heart disease, unspecified; I25.10 Atherosclerotic heart disease of native coronary artery without angina pectoris; E11.40 Type 2 diabetes mellitus with diabetic neuropathy, unspecified; N25.0 Renal osteodystrophy; Z95.1 Presence of aortocoronary bypass graft